=== PATIENT | female | born 1980 | race Caucasian/White ===

== ENCOUNTER 2017-06-24 02:10 | Emergency (ER) | payer MEDICARE, OTHER, SELFPAY ==
[2017-06-24 02:11] VITALS: BP 152/99; PULSE 120; RESP 24; TEMP 36.9; O2SAT 90; BMI 47.2
--- NOTE | 2017-06-24 02:24 | HMH.EDGENADL ---
ED Disposition Clinical Impression: Right humeral fracture Qualifiers: Encounter type: initial encounter Humerus Location: distal Fracture type: closed Fracture morphology: unspecified fracture morphology Qualified Code(s): S42.401A - Unspecified fracture of lower end of right humerus, initial encounter for closed fracture Disposition: Home, Self-Care Condition on Discharge: Good Additional Instructions: Continue splint and sling until seen by Dr. Ballard. Additional instructions for FRACTURED (BROKEN) BONE: See Dr. Ballard as soon as possible for further evaluation. Call Monday to schedule appointment to be seen this week. Treat your splint like you would a cast: Do not get it wet (cover with a plastic bag while bathing or showering). If the splint feels too tight, you may loosen the roseanna wrap covering it, but do not remove the splint. You may ice the fracture by applying an ice pack over the top of the splint, without removing the splint. Return to an emergency department immediately if you have uncontrollable pain, loss of feeling or inability to move your injured extremity. Additional instructions for CONTROLLED SUBSTANCES: You have been prescribed a medication that is a controlled substance. Controlled substances include pain medications known as opiates and sedative nerve medications known as benzodiazepines. Some common opiates include: Codeine (such as Tylenol #3) Hydrocodone (Vicodin, Lortab, Lorcet, Achille) Oxycodone (Percocet, Percodan, Oxycodone, Oxy IR) Some common benzodiazepines include: Diazepam (Valium) Lorazepam (Ativan) Alprazolam (Xanax) Clonazepam (Klonopin) Oxazepam (Serax) All of these controlled substances are highly addictive and frequently abused. Misuse can and frequently does lead to addiction as well as overdose and . Medication should be stored in a locked cabinet or other secure storage unit. Do not store the medication in a motor vehicle. Short term supplies, 3 days or less, are prescribed because of the highly addictive nature of the medication. Any of the controlled substance medication NOT taken should be disposed of properly and NOT SAVED. The recommended method of disposing of unused medications is: Place the medicines in a sealable plastic bag. If the medicine is a solid, crush it or add water to dissolve it. Add something undesirable (cat litter, coffee grounds, etc.) Dispose of sealed bag in household trash Do not flush or pour unused medicines down a sink or drain. Controlled substances should not be shared, given away or sold. Because of the addictive nature and frequent abuse, these medications are sometimes stolen. These medications should be kept in a safe place where they cannot be stolen. Do not keep them in your car or purse. Lost or stolen prescriptions for controlled substances WILL NOT BE REFILLED in this emergency department, regardless of whether a police report was filed. Prescriptions: Oxycodone HCl/Acetaminophen [Percocet 5/325mg tablet] 1 tab PO Q6HP PRN #20 tab PRN Reason: Moderate To Severe Pain Referrals: Donnie Espinosa MD [Primary Care Provider] - Yordan Ballard MD [Staff Physician] - 3 days - Critical Care Critical Care Time: No Attestation: On , the high probability of a clinically significant, sudden or life threatening deterioration of the following system(s) required my full and direct attention, intervention and personal management. The time I documented below is in addition to time spent performing reported procedures but includes the following listed in this critical care notation. Medical Decision Making Vital Signs: 06/24/17 02:11 Temperature 98.4 F Temperature Source Oral Pulse Rate [Right Brachial] 120 H Respiratory Rate 24 Blood Pressure [Right Arm] 152/99 Blood Pressure Mean [Right Arm] 116 Blood Pressure Source [Right Arm] Automatic Cuff Blood Pressure Position [Right Arm] Supine 02 Sat by Pulse Oximetr
--- NOTE | 2017-06-24 02:30 | XR_ITS ---
XR humerus RT Ordering Physician: Joey Stokes MD Patient Age: 36 years: Female HISTORY: ITS.REASON: painf pain . Numbness to the hand. Denies trauma TECHNIQUE: 2 views right humerus radiograph COMPARISON :None FINDINGS Spiral fracture distal right humerus shaft with up to 7 mm distraction along the fracture line and prominent angulation up to ~30 angulation on One of the rotated AP views.. [place] of fracture directed laterally. The proximal humeral shaft is intact. The views of the shoulder included on this study unremarkable. IMPRESSION: Spiral fracture distal humerus. Mild to moderate distraction and angulation at fracture
--- NOTE | 2017-06-24 02:39 | PC.NURSE ---
TO RADIOLOGY PER W/C.
--- NOTE | 2017-06-24 03:36 | PC.NURSE ---
[facility] CALLED FOR TRANSPORT
[2017-06-24 03:38] VITALS: BP 143/92; PULSE 98; RESP 20; O2SAT 97
== END 2017-06-24 03:44 | disposition home or self-care (01) ==
PROVIDERS: Emergency Provider Emergency Medicine; Family Provider Emergency Medicine; PCP Emergency Medicine
DX: S42.401A Unspecified fracture of lower end of right humerus, initial encounter for closed fracture (principal); W01.0XXA Fall on same level from slipping, tripping and stumbling without subsequent striking against object, initial encounter; Y92.129 Unspecified place in nursing home as the place of occurrence of the external cause
CPT/HCPCS: 29105; 73060; 99282

== ENCOUNTER → 2017-07-06 08:51 | Outpatient (CLI) | payer MEDICARE, OTHER, SELFPAY ==
--- NOTE | 2017-07-06 08:55 | XR_ITS ---
XR shoulder RT min 2V HISTORY: Follow-up fracture ITS.REASON: right humerus fracture. ORDERING PHYSICIAN: Leon West MD PATIENT AGE: 36 years COMPARISON: None FINDINGS: No fracture or dislocation. No lytic or blastic change. There is normal mineralization. The joint spaces are well-preserved. No significant degenerative/arthritic changes. No erosive changes evident. There is some sclerosis of the right second rib anteriorly and pleural thickening in the right upper lobe laterally and suspected old right rib fractures of the right second and third rib. IMPRESSION: Negative right shoulder. Old right-sided rib fractures with pleural thickening
--- NOTE | 2017-07-06 09:44 | XR_ITS ---
XR humerus RT CLINICAL INDICATION: Follow-up fracture ITS.REASON: right humerus fracture ORDERING PHYSICIAN: Leon West MD PATIENT AGE: 36 years COMPARISON: 06/24/2017 FINDINGS: Displaced oblique fracture of the distal shaft of the humerus is once again noted. The distal fracture fragment is displaced laterally x 2 cm with mild distraction of the fracture fragments. The lateral displacement has increased compared to the previous exam. There is mild medial angulation of the distal fracture fragment. No callus formation. IMPRESSION: Oblique displaced fracture of the distal humerus. Slightly greater displacement compared to the previous exam
== END ==
PROVIDERS: PCP Emergency Medicine; Visit Provider Orthopaedic Surgery
DX: S42.301A Unspecified fracture of shaft of humerus, right arm, initial encounter for closed fracture (principal)
CPT/HCPCS: 73030; 73060

== ENCOUNTER → 2017-07-12 14:54 | Outpatient (CLI) | payer MEDICARE, OTHER, SELFPAY ==
--- NOTE | 2017-07-12 14:59 | XR_ITS ---
XR humerus RT CLINICAL INDICATION: Follow-up fracture ITS.REASON: RT humerus fracture ORDERING PHYSICIAN: Leon West MD PATIENT AGE: 36 years COMPARISON: 07 06 17 FINDINGS: Displaced distal humeral fracture is once again noted. The fracture is oblique in orientation. There is 2.5 cm lateral displacement of the distal fracture fragment with some distraction at 0 present bony apposition. Mild anterior angulation of the distal fracture fragment also noted. No callus formation or bony bridging. IMPRESSION: Distracted displaced distal humeral fracture as described above. Overall not significantly changed
== END ==
PROVIDERS: PCP Emergency Medicine; Visit Provider Orthopaedic Surgery
DX: S42.301A Unspecified fracture of shaft of humerus, right arm, initial encounter for closed fracture (principal)
CPT/HCPCS: 73060

== ENCOUNTER → 2017-07-19 12:25 | Outpatient (CLI) | payer MEDICARE, OTHER, SELFPAY ==
--- NOTE | 2017-07-19 12:29 | XR_ITS ---
XR humerus RT CLINICAL INDICATION: Follow-up fracture ITS.REASON: humerus fracture ORDERING PHYSICIAN: Leon West MD PATIENT AGE: 36 years COMPARISON: FINDINGS: Displaced and distracted fracture once again noted involving the humerus. The lateral displacement of the distal fracture fragment has somewhat improved measuring 15 mm previously measuring 25 mm. Distraction also appear somewhat improved. There is increased density about fracture site with callus formation. IMPRESSION: Healing displaced distal humeral fracture as described above
== END ==
PROVIDERS: PCP Emergency Medicine; Visit Provider Orthopaedic Surgery
DX: S42.301A Unspecified fracture of shaft of humerus, right arm, initial encounter for closed fracture (principal)
CPT/HCPCS: 73060

== ENCOUNTER → 2017-08-10 09:11 | Outpatient (CLI) | payer MEDICARE, OTHER, SELFPAY ==
--- NOTE | 2017-08-10 09:15 | XR_ITS ---
XR humerus RT CLINICAL INDICATION: Follow-up fracture ITS.REASON: removal of cast then follow up xray RT humerus fx. ORDERING PHYSICIAN: Leon West MD PATIENT AGE: 36 years COMPARISON: 07/19/2017 FINDINGS: Displaced distal humeral fracture is once again noted. There is 12 mm lateral and 7 mm dorsal displacement of the distal fracture fragment. Abundant callus formation is noted. There is minimal medial angulation of the distal fracture fragment. IMPRESSION: Healing displaced distal right humeral fracture as described above
== END ==
PROVIDERS: PCP Emergency Medicine; Visit Provider Orthopaedic Surgery
DX: S42.301A Unspecified fracture of shaft of humerus, right arm, initial encounter for closed fracture (principal)
CPT/HCPCS: 73060

== ENCOUNTER → 2017-09-21 09:22 | Outpatient (CLI) | payer MEDICARE, OTHER, SELFPAY ==
--- NOTE | 2017-09-21 09:27 | XR_ITS ---
XR humerus RT CLINICAL INDICATION: ITS.REASON: f/u right humerus fx ORDERING PHYSICIAN: Leon West MD PATIENT AGE: 36 years COMPARISON: 08/10/2017 FINDINGS: There is a healing fracture of the distal shaft of the humerus with abundant callus formation which is increased compared to the previous exam. The fractures bilaterally displaced laterally x 15 mm and posteriorly x 12 mm. The posterior displacement appears somewhat worse but could be related to the projection. IMPRESSION: Healing displaced distal humerus fracture
== END ==
PROVIDERS: PCP Emergency Medicine; Visit Provider Orthopaedic Surgery
DX: S42.301A Unspecified fracture of shaft of humerus, right arm, initial encounter for closed fracture (principal)
CPT/HCPCS: 73060

== ENCOUNTER → 2017-12-21 09:24 | Outpatient (CLI) | payer MEDICARE, OTHER, SELFPAY ==
--- NOTE | 2017-12-21 09:32 | XR_ITS ---
XR humerus RT Ordering Physician: Leon West MD Patient Age: 37 years: Female HISTORY: ITS.REASON: rt humerus fx TECHNIQUE: AP lateral view right humerus. COMPARISON :09/11/2017. FINDINGS . The healing spiral fracture of the distal humerus is again identified. Abundant callus formation and bone healing now evident. The distal fracture fragment and stable position again noted to be displaced laterally and posteriorly. Good healing to this area and likely early remodeling beginning. I see no new findings. The proximal humerus intact. What is seen at the elbow are stable. IMPRESSION. Prominent Healing evident at the moderate displaced fracture distal humerus
== END ==
PROVIDERS: PCP Emergency Medicine; Visit Provider Orthopaedic Surgery
DX: S42.301A Unspecified fracture of shaft of humerus, right arm, initial encounter for closed fracture (principal)
CPT/HCPCS: 73060

== ENCOUNTER → 2018-11-07 20:38 | Outpatient (CLI) | payer MEDICARE, OTHER, SELFPAY | PROVIDERS: PCP Emergency Medicine; Visit Provider Emergency Medicine | DX: G47.33 Obstructive sleep apnea (adult) (pediatric) (principal); G47.36 Sleep related hypoventilation in conditions classified elsewhere | CPT/HCPCS: 95811 ==

== ENCOUNTER → 2019-04-18 20:05 | Outpatient (CLI) | payer MEDICARE, OTHER, SELFPAY | PROVIDERS: PCP Emergency Medicine; Visit Provider Specialist | DX: G47.33 Obstructive sleep apnea (adult) (pediatric) (principal); G47.10 Hypersomnia, unspecified; E66.01 Morbid (severe) obesity due to excess calories; R03.0 Elevated blood-pressure reading, without diagnosis of hypertension | CPT/HCPCS: 95811 ==

== ENCOUNTER → 2019-07-01 15:13 | Outpatient (CLI) | payer MEDICARE, OTHER, SELFPAY ==
[2019-07-04 10:28] LABS: ABG PH 7.36 mmol/L (7.35-7.45)
[2019-07-04 10:29] LABS: ABG Base Excess 6.9 mmol/L (-2.4-2.3); ABG HCO3 32.3 mmhg (22.0-26.0); ABG Oxygen Saturation 85 % (90-100); ABG PO2 50.3 mmhg (80-100); Allen's Test Acceptable; Oxygen room air %
[2019-07-04 10:30] LABS: Source Right Radial
== END ==
PROVIDERS: Visit Provider Specialist
DX: G47.33 Obstructive sleep apnea (adult) (pediatric) (principal); J96.12 Chronic respiratory failure with hypercapnia
CPT/HCPCS: 82803

== ENCOUNTER → 2019-07-30 06:50 | Outpatient (CLI) | payer MEDICARE, OTHER, SELFPAY ==
--- NOTE | 2019-07-30 | CA_ITS ---
APPROVED REPORT Exam: Pharmacologic Technologist: Claire Bah Ht: 5 ft 4 in Wt: 300 lbs BSA: 2.32 m2 HR: 78 bpm BP: 120/54 mmHg Indications: Tachycardia, Chest pain Medical History Medications: Omeprazole,,,,, Ferrous sulfate,,,,, FOLIC ACID,,,,, Olanzapine,,,,, BisOPROLOL,,,,, Fluoxetine,,,,, Lactulose,,,,, HALoperidol,,,,, Loperamide,,,,, Divaproex,,,,, MeDroxyprogesterone,,,,, Stress Test Details Test: LEXISCAN HR Resting HR: 78 bpm Max Heart Rate (APMHR): 184 bpm Max HR Achieved: 112 bpm Target HR (85% APMHR): 156 bpm % of APMHR: 60 Recovery HR: 87 bpm BP Resting BP: 120.0/54.0 mmHg Max BP: 137.0/71.0 mmHg Recovery BP: 137.0/71.0 mmHg ECG Clinical Exercise duration: 04:00 min Highest Stage Achieved: Exercise capacity: 1.0 METs Stress ECG Conclusion Resting ECG: Normal sinus rhythm, rightward axis Symptoms: Shortness of air, mild stomach discomfort, mild chest discomfort. Arrhythmias/Ectopy: None ST-T Changes: No significant changes Conclusion: Unremarkable Lexiscan stress. Myoview images reported separately. Electronically signed by : Rajesh Shelton, 07/30/2019 19:55:45
--- NOTE | 2019-07-30 06:50 | CA_ITS ---
APPROVED REPORT EXAM: Comprehensive 2D, Doppler, and color-flow Echocardiogram Armoured Car Escort: Elayne Quintana RDCS Ht: 5 ft 6 in Wt: 312lbs BSA: 2.42 BP: 140/93 mmHg Indications: Chest Pain, COPD, Shortness of Breath, Obesity, Hyperlipidemia M-Mode Dimensions RVDd 2.74 cm (0.9-2.6) LVDd 5.03 cm (3.5-5.7) LVDs 3.81 cm (3.5-5.7) IVSd 0.99 cm (0.6-1.1) PWd 0.91 cm (0.6-1.1) EF (Teich) 48.00% FS 24.30% EDV (Teich) 119.90 mL ESV (Teich) 62.30 mL LV Diastology E/A Ratio 1.28 Mitral Valve MV A Velocity 46.00 (40-130 cm/s) Left Ventricle Left atrium is mildly enlarged, left ventricle is normal size, mild concentric left ventricular hypertrophy, visually estimated ejection fraction 55% with no regional wall motion abnormality, diastolic parameters are inconclusive. Right Ventricle Right atrium and right ventricle are mildly enlarged with normal contractility. Aortic Valve Aortic valve is grossly normal, there is no aortic stenosis or aortic insufficiency. Mitral Valve Mitral valve is grossly normal, there is mild mitral regurgitation. Tricuspid Valve Tricuspid valve is grossly normal, there is mild tricuspid regurgitation. Pulmonic Valve Pulmonic valve is poorly visualized. Great Vessels Aortic root is normal size. Pericardium No significant pericardial effusion noted. Conclusion 1. Mild mitral enlargement, normal left ventricular size, mild concentric left ventricular hypertrophy, visually estimated ejection fraction 55% with no regional wall motion abnormality, diastolic parameters are inconclusive. 2. Mildly enlarged right ventricle with normal contractility. 3. Mild mitral and tricuspid regurgitation. 4. No significant pericardial effusion noted. Electronically signed by : Rajesh Shelton, 07/30/2019 20:01:10
--- NOTE | 2019-07-30 06:57 | NM_ITS ---
APPROVED REPORT Exam: Nuclear Stress Test Indication: Chest pain, SOB, Fatigue, HTN Patient Location: Outpatient Stress Tech: Claire Bah NM Tech:Dona Andrew, ARRT, RT (R)(N) Ht: 5 ft 4 in Wt: 300 lbs Bra Size: 36D HR: 78 bpm BP: 120/54 mmHg BSA: 2.32 m2 BMI: 51.4 History: Chest pain, SOB, Fatigue, HTN Procedure: Patient received a 0.4 mg of intravenous Lexiscan, resting heart rate 78 bpm, resting blood pressure 120/54 mmHg, with Lexiscan maximum heart rate achived was 109 bpm which is Less than 85 % of the maximum predicted heart rate and blood pressure was 123/75 mmHg. Electrocardiogram Resting electrocardiogram showed sinus rhythm, with Lexiscan there is less than 1.[address] segment depression noted from the baseline EKG. The EKG portion of the Lexiscan is nondiagnostic. Cardiac Stress and Resting SPECT Images: Cardiac Stress and Resting SPECT images were obtained using technetium 99m Myoview 32.5 mCi stress and 10.42 mCi at rest. Gated SPECT with analysis of segmental wall motion and calculation of the ejection fraction also done. Cardiac stress and resting SPECT images show uniform myocardial activity without segmental perfusion abnormality, computer derived ejection fraction is 63% with no regional wall motion abnormality, right ventricle is normal size and contractility. Conclusion: 1. The EKG portion of the Lexiscan Myoview is nondiagnostic. 2. No scintigraphic evidence of reversible ischemia seen, computer derived ejection fraction is 63% with no regional wall motion abnormality, right ventricle is normal size and contractility. 3. Normal Lexiscan Myoview study. Electronically signed by : Rajesh Shelton, 07/30/2019 19:58:02
--- NOTE | 2019-07-30 08:17 | HMH.ITSHM ---
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 []LOPERAMIDE ROBAFEN BENZTROPINE DIVALPROEX FERROUS SULFATE FLUOXETINE BISOPROLOL FOLIC ACID HALOPERIDOL LACTULOSE MEDROXYPROGESTERONE OLANZAPINE OMEPRAZOLE
== END ==
PROVIDERS: PCP Emergency Medicine; Visit Provider Physician Assistant
DX: G47.33 Obstructive sleep apnea (adult) (pediatric) (principal); R06.02 Shortness of breath; R07.9 Chest pain, unspecified; R00.0 Tachycardia, unspecified; Z01.810 Encounter for preprocedural cardiovascular examination
CPT/HCPCS: 78452; 93017; 93306; A9502; J2785

== ENCOUNTER 2020-12-21 15:50 | Emergency (ER) | payer MEDICARE, OTHER, SELFPAY ==
[2020-12-21 15:50] VITALS: BP 138/72; PULSE 104; RESP 18; TEMP 36.7; O2SAT 94; BMI 47.1
--- NOTE | 2020-12-21 16:09 | HMH.EDGENADL ---
ED Disposition Clinical Impression: Vaginal foreign body Qualifiers: Encounter type: initial encounter Qualified Code(s): T19.2XXA - Foreign body in vulva and vagina, initial encounter Disposition: Home, Self-Care Condition on Discharge: Fair Instructions: DI for Skin Abscess - Critical Care Critical Care Time: No Attestation: On , the high probability of a clinically significant, sudden or life threatening deterioration of the following system(s) required my full and direct attention, intervention and personal management. The time I documented below is in addition to time spent performing reported procedures but includes the following listed in this critical care notation. Medical Decision Making - [place] Inquiry Pt receiving controlled substance: No Vital Signs: 12/21/20 15:50 12/21/20 16:29 Temperature 98.0 F Temperature Source Oral Pulse Rate [Left Radial] 104 H Respiratory Rate 18 Blood Pressure 135/72 Blood Pressure [Right Arm] 138/72 Blood Pressure Mean [Right Arm] 94 Blood Pressure Source Automatic Cuff Blood Pressure Source [Right Arm] Automatic Cuff Blood Pressure Position Sitting Blood Pressure Position [Right Arm] Sitting 02 Sat by Pulse Oximetry 94 L Oxygen Delivery Method Room Air Medical Decision Narrative: To the ED today for further evaluation of a vaginal foreign body, patient is well-appearing on examination in no acute distress with stable vital signs, differential diagnosis includes foreign body of the vagina, anal foreign body, laceration of the perineum. Exam performed with speculum, patient has a eraser found at the introitus of the vagina, was removed with forceps, no bleeding, no laceration visualized, patient reports symptomatic improvement afterward, given return precautions return to ED with any new or worsening symptoms, verbalized understanding with this plan, does not require follow-up, imaging or laboratory work-up at this time. General Adult HPI - General Chief complaint: Skin/Abscess/Foreign Body Stated complaint: foreign object Time Seen by Provider: 12/21/20 16:09 Mode of Arrival: EMS Limitations: No Limitations Description of Symptoms (Recalled from ER Triage Doc. by RN): pt states that she was scratching her vagina after trying to itch her butt and the eraser came off the tip of the pencil while scratching her vagina. - History of Present Illness HPI narrative: Further evaluation of a vaginal foreign body. Patient states that she was scratching her perineal area with the end of a pencil, such as he felt the cap of the eraser fall off, and states that she feels the sensation of this near the entrance of her vagina, states that this happened her approximately 1 hour prior to arrival, has been otherwise well, no other complaints at this time. - Related Data Home Medications Medication Instructions Recorded Confirmed benztropine 0.5 mg tablet 0.5 mg PO BID 06/28/17 10/21/20 dextromethorphan-guaifenesin 10 10 ml PO Q4-6H PRN 06/28/17 10/21/20 mg-100 mg/5 mL oral syrup divalproex 500 mg tablet,delayed 500 mg PO DAILY 06/28/17 10/21/20 release ferrous sulfate 325 mg (65 mg 325 mg PO DAILY tab 06/28/17 10/21/20 iron) tablet fluoxetine 40 mg capsule 40 mg PO DAILY 06/28/17 10/21/20 folic acid 1 mg tablet 1 mg PO DAILY 06/28/17 10/21/20 lactulose 10 gram/15 mL oral 10 g PO ONCE 06/28/17 10/21/20 solution loperamide 2 mg capsule 2 mg PO Q3HP PRN 06/28/17 10/21/20 medroxyprogesterone 150 mg/mL 150 mg IM [id number] 06/28/17 10/21/20 intramuscular suspension olanzapine 20 mg tablet 20 mg PO DAILY 06/28/17 10/21/20 Divalproex Sodium [Depakote] 1,500 mg PO HS 07/28/18 10/21/20 haloperidol 5 mg tablet 5 mg PO TID tab 07/22/19 10/21/20 omeprazole magnesium 20 mg 20 mg PO DAILY tab 07/22/19 10/21/20 tablet,delayed release Previous Rx's Medication Instructions Recorded bisoprolol fumarate 5 mg tablet 5 mg PO DAILY #30 tab 07/22/19 phenterm
[2020-12-21 16:29] VITALS: BP 135/72
[2020-12-21 18:24] VITALS: BP 104/76; PULSE 100; RESP 22; TEMP 36.7; O2SAT 94
== END 2020-12-21 18:30 | disposition home or self-care (01) ==
PROVIDERS: Emergency Provider Student in an Organized Health Care Education/Training Program; PCP Emergency Medicine
DX: T19.2XXA Foreign body in vulva and vagina, initial encounter (principal); K21.9 Gastro-esophageal reflux disease without esophagitis; F41.8 Other specified anxiety disorders; G43.709 Chronic migraine without aura, not intractable, without status migrainosus; G40.909 Epilepsy, unspecified, not intractable, without status epilepticus
CPT/HCPCS: 99282

== ENCOUNTER 2021-02-07 23:54 | Inpatient (IN) | payer MEDICARE, OTHER, MEDICAID, SELFPAY ==
[2021-02-07 23:52] VITALS: BP 133/56; PULSE 107; RESP 30; TEMP 38.8; O2SAT 89; BMI 51.5
--- NOTE | 2021-02-07 23:54 | XR_ITS ---
PROCEDURE INFORMATION: Exam: XR Chest Exam date and time: 02/07/2021 11:54 PM Age: 40 years old Clinical indication: Shortness of breath; Additional info: SOA TECHNIQUE: Imaging protocol: XR of the chest. Views: 1 view. COMPARISON: CR CXR CHEST(2 VIEWS-NOT PORTABLE) 06/14/2016 2:29 PM FINDINGS: Lungs: Extensive bilateral airspace disease/pneumonia. Low lung volumes. Pleural spaces: Unremarkable. No pleural effusion. No pneumothorax. Heart/Mediastinum: Cardiomegaly. Bones/joints: Unremarkable. IMPRESSION: Extensive bilateral airspace disease concerning for pneumonia.
[2021-02-07 23:55] LABS: ABG Base Excess 7.9 mmol/L (-2.4-2.3); ABG HCO3 32.3 mmhg (22.0-26.0); ABG Oxygen Saturation 81 % (90-100); ABG PH 7.43 mmol/L (7.35-7.45); ABG TCO2 33.9 mmhg (23-27)
[2021-02-07 23:56] LABS: ABG PCO2 50.4 mmhg (35.0-45.0); ABG PO2 45.6 mmhg (80-100); Allen's Test Y; Oxygen 100 %; Source R/R
[2021-02-08] VITALS (16 sets, daily range): BP systolic 137–163; BP diastolic 51–90; PULSE 92–106; RESP 18–32; TEMP 36.3–37.2; O2SAT 89–100; BMI 49.0; BMI 49.1
[2021-02-08 00:13] LABS: Microscopic, Urine URINE MICROSCOPIC (MICROSCOPIC)
[2021-02-08 00:17] LABS: Influenza A, PCR Not Detected (NotDetected); Influenza B, PCR Not Detected (NotDetected)
--- NOTE | 2021-02-08 00:17 | ECG_ITS ---
APPROVED REPORT Exam: Resting ECG HR:110 bpm ECG Measurements Heart Rate 110 AXES NC 144 P 50 QRSd 84 QRS -8 QT 348 T 29 QTc 470 Conclusion Sinus tachycardia with premature atrial complexes Otherwise normal ECG Electronically signed by : Jason Saldaña MD 02/08/2021 20:38:03
--- NOTE | 2021-02-08 00:18 | HMH.EDSOB ---
ED Disposition Clinical Impression: COVID-19 with pulmonary comorbidity, Obstructive Sleep Apnea-Hypopnea Syndrome, Pickwickian syndrome HTN (hypertension) Qualifiers: Hypertension type: primary hypertension Qualified Code(s): I10 - Essential (primary) hypertension Obesity Qualifiers: Obesity type: due to excess calories Obesity classification: adult class 3 (BMI >= 40) Serious obesity comorbidity presence: with serious comorbidity Body mass index: BMI 50.0-59.9 Qualified Code(s): E66.01 - Morbid (severe) obesity due to excess calories; Z68.43 - Body mass index [BMI] 50.0-59.9, adult Schizophrenia Qualifiers: Schizophrenia type: unspecified Qualified Code(s): F20.9 - Schizophrenia, unspecified Respiratory failure with hypoxia and hypercapnia Qualifiers: Chronicity: acute on chronic Qualified Code(s): J96.21 - Acute and chronic respiratory failure with hypoxia; J96.22 - Acute and chronic respiratory failure with hypercapnia Disposition: Admitted As Inpatient Condition on Discharge: Serious - Critical Care Critical Care Time: No Attestation: On 02/07/21, the high probability of a clinically significant, sudden or life threatening deterioration of the following system(s) required my full and direct attention, intervention and personal management. The time I documented below is in addition to time spent performing reported procedures but includes the following listed in this critical care notation. Medical Decision Making - Medical Records Medical records reviewed: Yes: I reviewed the patient's medical records. - [place] Inquiry Pt receiving controlled substance: No Vital Signs: 02/07/21 23:52 02/08/21 00:31 02/08/21 01:01 Temperature 101.9 F H Temperature Source Rectal Pulse Rate 106 H 103 H Pulse Rate [Right] 107 H Respiratory Rate 30 H 32 H 30 H Blood Pressure 145/73 H 155/75 H Blood Pressure [Right Arm] 133/56 L Blood Pressure Mean 93 98 Blood Pressure Mean [Right Arm] 81 02 Sat by Pulse Oximetry 89 L 99 98 Oxygen Delivery Method Non-Rebreather Vapotherm Oxygen Flow Rate (LPM) 02/08/21 01:30 02/08/21 02:22 02/08/21 02:31 Temperature 98.1 F Temperature Source Pulse Rate 99 H 99 H Pulse Rate [Right] Respiratory Rate 26 H 28 H Blood Pressure 163/59 H 140/51 L Blood Pressure [Right Arm] Blood Pressure Mean Blood Pressure Mean [Right Arm] 02 Sat by Pulse Oximetry 98 95 Oxygen Delivery Method Vapotherm Oxygen Flow Rate (LPM) 25 - Lab Data Lab results reviewed: Yes: I reviewed the patient's lab results. Lab Results 02/07/21 00:00: Urine Color Dk yellow, Urine Appearance Sl cloudy, Urine pH 6.0, Ur Specific [place] >= 1.030, Urine Protein 1+, Urine Glucose (UA) Negative, Urine Ketones 1+, Urine Blood Negative, Urine Nitrate Negative, Urine Bilirubin 1+ A, Urine Urobilinogen 2.0, Ur Leukocyte Esterase Negative, Urine WBC 3-5, Ur Squamous Epith Cells Occasional, Urine Bacteria Trace, Urine Mucus 2+ 02/07/21 23:54: Specimen Source R/r, O2 % 100, ABG pH 7.43, ABG pCO2 50.4 H, ABG pO2 45.6 L, ABG HCO3 32.3 H, ABG Total CO2 33.9 H, ABG O2 Saturation 81 L*, ABG Base Excess 7.9 H, Varun Test Y 02/07/21 23:55: WBC 8.9, RBC 4.50, Hgb 13.5, Hct 41.9, MCV 93.2, MCH 30.0, MCHC 32.2, RDW 13.4, Plt Count 269, MPV 8.5, Neut % (Auto) 71.8, Lymph % (Auto) 20.6, [place] % (Auto) 6.8, Eos % (Auto) 0.1, Baso % (Auto) 0.7, Neut # (Auto) 6.4, Lymph # (Auto) 1.8, [place] # (Auto) 0.6, Eos # (Auto) 0.0, Baso # (Auto) 0.1, ESR 41 H 02/07/21 23:55: Sodium 135 L, Potassium 4.4, Chloride 91 L, Carbon Dioxide 35 H, Anion Gap 13.4, BUN 9, Creatinine 0.60, Estimated Creat Clear 110, Estimated GFR 112, Est GFR ( Amer) 135, Glucose 129 H, Calcium 8.1 L, Total Bilirubin 0.1 L, AST 38 H, ALT 35, Alkaline Phosphatase 48, C-Reactive Protein 87.4 H, Total Protein 7.0, Albumin 3.6, Globulin 3.4 H, Albumin/Globulin Ratio 1.1, Procalcitonin 0.075 02/07/21 23:55: Lactate 1.0 02/07/21 23:55: Troponin I < 0.01
[2021-02-08 00:19] LABS: Basophils # 0.1 K/mm3 (0-0.2); Basophils % 0.7 % (0.1-2.0); Eosinophils % 0.1 % (0.1-12.0); Hematocrit 41.9 % (37.0-47.0); Hemoglobin 13.5 g/dL (12.2-16.2); Lymphocytes # 1.8 K/mm3 (0.7-4.5); Lymphocytes % 20.6 % (10-50); Mean Corpuscular HGB Conc 32.2 g/dL (31.8-35.4); Mean Corpuscular Volume 93.2 fl (81-99); Mean Platelet Volume 8.5 fl (7.4-10.4); Monocytes # 0.6 K/mm3 (0.1-1.0); Monocytes % 6.8 % (1.7-9.3); Neutrophils # 6.4 K/mm3 (1.8-7.8); Neutrophils % 71.8 % (37.0-80.0); Platelet Count 269 K/mm3 (142-424); Red Cell Distribution Width 13.4 % (11.5-17.5); White Blood Count 8.9 K/mm3 (4.8-10.8)
[2021-02-08 00:25] LABS: Appearance,Urine SL CLOUDY (Clear); Blood, Urine Negative (Negative); Color,Urine DK YELLOW (Yellow); Glucose,Urine (UA) Negative (Negative); Ketones,Urine 1+ (Negative); Leukocyte Esterase,Urine Negative (Negative); Nitrate,Urine Negative (Negative); Protein,Urine 1+ (Negative); Specific Gravity, Urine >= 1.030 (1.005-1.030)
[2021-02-08 00:28] LABS: Bilirubin,Urine 1+ (Negative)
[2021-02-08 00:30] LABS: Alanine Aminotransferase 35 U/L (12-78); Albumin Level 3.6 g/dl (3.5-5.0); Albumin/Globulin Ratio 1.1 (1.1-1.8); Alkaline Phosphatase 48 U/L (38-126); Anion Gap 13.4 mEq/L (5-15); Aspartate Amino Transferase 38 U/L (14-36); Bilirubin,Total 0.1 mg/dl (0.2-1.3); Blood Urea Nitrogen 9 mg/dl (7-17); Calcium 8.1 mg/dl (8.4-10.2); Carbon Dioxide 35 mmol/L (22.0-30.0); Chloride 91 mmol/L (98-107); Creatinine Clearance Estimated 110 mL/min (50-200); Estimated Glomerular Filt Rate 112 ml/min (>60); GFR (African American) 135 ML/MIN (>60); Globulin 3.4 g/dL (1.3-3.2); Glucose 129 mg/dl (74-100); Potassium 4.4 mmoL/L (3.5-5.1); Sodium 135 mmol/L (136-145)
[2021-02-08 00:31] LABS: Bacteria,Urine Trace /lpf; Mucus,Urine 2+ /lpf; Squamous Epithelial Cell,Urine Occasional #/hpf (0-5)
[2021-02-08 00:35] LABS: C-Reactive Protein 87.4 mg/L (0-4)
[2021-02-08 00:39] LABS: Coronavirus 19, PCR Detected (NotDetected)
[2021-02-08 00:44] LABS: Troponin I < 0.01 ng/ml (0.00-0.034)
[2021-02-08 00:46] LABS: Erythrocyte Sedimentation Rate 41 mm/hr (0-20)
[2021-02-08 00:49] LABS: Procalcitonin 0.075 ng/mL (0.0-2.0)
[2021-02-08 01:04] LABS: Valproic Acid, (Depakene) 92.8 ug/ml (50-100)
--- NOTE | 2021-02-08 01:15 | CT_ITS ---
PROCEDURE INFORMATION: Exam: CTA Chest With Contrast Exam date and time: 02/08/2021 1:15 AM Age: 40 years old Clinical indication: Shortness of breath; Additional info: SOA, covid positive TECHNIQUE: Imaging protocol: Computed tomographic angiography of the chest with contrast. 3D rendering (Not supervised by radiologist): MIP and/or 3D reconstructed images were created by the technologist. Total images: 685 Radiation optimization: All CT scans at this facility use at least one of these dose optimization techniques: automated exposure control; mA and/or kV adjustment per patient size (includes targeted exams where dose is matched to clinical indication); or iterative reconstruction. Contrast material: ISOVUE; Contrast volume: 70 ml; Contrast route: INTRAVENOUS (IV); COMPARISON: CR XR CHEST PORTABLE 02/08/2021 12:01 AM FINDINGS: Pulmonary arteries: Pulmonary artery valuation limited in the lung bases from respiratory motion. Pulmonary artery evaluation of fair technical quality but no pulmonary artery embolism identified. Aorta: No thoracic aortic aneurysm, dissection or other acute thoracic aortic injury. Lungs: Patchy subpleural predominant ground-glass and linear pulmonary opacities are concerning for atypical infection, likely moderate changes of COVID-19. Low lung volumes. Pleural spaces: Unremarkable. No pneumothorax. No pleural effusion. Heart: Unremarkable. No cardiomegaly. No pericardial effusion. Lymph nodes: Unexpectedly prominent mediastinal and hilar adenopathy includes a 14 x 17 mm prevascular lymph node with lymphoid tissue encircling the bilateral lower lobe pulmonary arteries. This is more than is typically expected for viral pneumonia and is a potential marker of lymphoproliferative disorder or malignancy. Liver: Hepatic steatosis is evident. Bones/joints: Unremarkable. No acute fracture. Soft tissues: Unremarkable. IMPRESSION: 1. No thoracic aortic aneurysm, dissection or other acute thoracic aortic injury. 2. No segmental or larger pulmonary artery embolism identified. Mildly limited quality examination. 3. Patchy subpleural predominant ground-glass and linear pulmonary opacities are concerning for atypical infection, likely moderate changes of COVID-19. 4. Unexpectedly prominent mediastinal and hilar adenopathy includes a 14 x 17 mm prevascular lymph node with lymphoid tissue encircling the bilateral lower lobe pulmonary arteries. This is more than is typically expected for viral pneumonia and is a potential marker of lymphoproliferative disorder or malignancy. Consider followup three-month CT chest to further define.
[2021-02-08 03:59] LABS: Troponin I < 0.01 ng/ml (0.00-0.034)
--- NOTE | 2021-02-08 05:15 | HMH.HP ---
*Admission Date: 02/08/21 *Chief complaint: [id number] *History of present illness: this patient is from [facility]- pt with recent dx of covid-19 and was sent for eval of sob with dec o2 sat and dec mental status - pt was seen in the ed with abn abg and cxr with positive covid-19 despite being vaccinated - pt was admitted at this time on vapotherm [facility] History I have reviewed the patient's past medical history: Yes Medical History: Reports:: Anxiety, Cancer, Depression, Gastroesophageal Reflux Disease(GERD), Migraine, Seizures Denies:: Diabetes Mellitus Type 1, Diabetes Mellitus Type 2, MRSA *Have you ever received a pneumonia vaccine?: No *Have you received a flu vaccine this season?: No Other Medical History: Reports: Anemia, Other Other Surgeries: Yes: Cholecystectomy, Other Amputation: No Fractures: No - *Social History Smoking Status: Never smoker #Yrs smoked (if former smoker): 6 Alcohol Intake: never Alcohol Intake Frequency:: other Substance Use Type: denies use *Occupational Status:: disabled Housing: longterm Household Members: caregiver *Travel in the last 8 weeks: None - Psychiatric History Pschychiatric History:: Reports:: Anxiety, Depression Family Hx:: Unable to obtain Review of Systems - Review of Systems Review of systems:: pertinent systems reviewed and negative unless documented below - Constitutional Reports weakness, Denies fever(s) - Eyes Denies change in vision - ENT Denies dizziness, Denies sore throat - *Cardiovascular Reports shortness of breath, Denies chest pain - *Respiratory Reports cough, Reports shortness of breath, Denies coughing up blood - *Gastrointestinal Denies abdominal pain - *Genitourinary Denies blood in urine - *Musculoskeletal Denies joint pain - Integumentary/Breasts Denies rash - *Neurologic Reports confusion, Denies seizure-like activity - Psychiatric Reports confusion Meds Home Medications Medication Instructions Recorded Confirmed Type benztropine 0.5 mg tablet 0.5 mg PO BID 06/28/17 02/08/21 History dextromethorphan-guaifenesin 10 10 ml PO Q4-6H PRN 06/28/17 02/08/21 History mg-100 mg/5 mL oral syrup divalproex 500 mg tablet,delayed 1,500 mg PO DAILY 06/28/17 02/08/21 History release ferrous sulfate 325 mg (65 mg 325 mg PO DAILY tab 06/28/17 02/08/21 History iron) tablet fluoxetine 40 mg capsule 40 mg PO DAILY 06/28/17 02/08/21 History folic acid 1 mg tablet 1 mg PO DAILY 06/28/17 02/08/21 History loperamide 2 mg capsule 2 mg PO Q3HP PRN 06/28/17 02/08/21 History medroxyprogesterone 150 mg/mL 150 mg IM [id number] 06/28/17 02/08/21 History intramuscular suspension olanzapine 20 mg tablet 15 mg PO DAILY 06/28/17 02/08/21 History Divalproex Sodium [Depakote] 1,500 mg PO HS 07/28/18 02/08/21 History omeprazole magnesium 20 mg 20 mg PO DAILY tab 07/22/19 02/08/21 History tablet,delayed release haloperidol 10 mg tablet 10 mg PO DAILY tab 01/20/21 02/08/21 History metformin 500 mg tablet 500 mg PO BID tab 01/20/21 02/08/21 History Phentermine HCl 37.5 mg PO DAILY 02/08/21 02/08/21 History bisoproloL fumarate [Bisoprolol 5 mg PO DAILY 02/08/21 02/08/21 History Fumarate] Allergies Allergy/AdvReac Type Severity Reaction Status Date / Time No Known Allergies Allergy Verified 01/20/21 09:55 Exam Vital signs and Labs for Last 24 Hours: Temp Pulse Resp BP Pulse Ox 98.9 F 96 H 24 141/90 H 94 L 02/08/21 05:05 02/08/21 05:05 02/08/21 05:05 02/08/21 05:05 02/08/21 05:05 Laboratory Results - last 24 hr 02/07/21 00:00: Urine Color Dk yellow, Urine Appearance Sl cloudy, Urine pH 6.0, Ur Specific Gratis >= 1.030, Urine Protein 1+, Urine Glucose (UA) Negative, Urine Ketones 1+, Urine Blood Negative, Urine Nitrate Negative, Urine Bilirubin 1+ A, Urine Urobilinogen 2.0, Ur Leukocyte Esterase Negative, Urine WBC 3-5, Ur Squamous Epith Cells Occasional, Urine Bacteria Trace, Urine M
--- NOTE | 2021-02-08 06:51 | XR_ITS ---
PROCEDURE INFORMATION: Exam: XR Chest Exam date and time: 02/08/2021 6:51 AM Age: 40 years old Clinical indication: Shortness of breath; Patient HX: [id number] TECHNIQUE: Imaging protocol: XR of the chest. Views: 1 view. COMPARISON: CR XR CHEST PORTABLE 02/08/2021 12:01 AM FINDINGS: Lungs: Bilateral airspace disease, in the setting of reported COVID-19 pneumonitis. Subcentimeter nodules, suggesting chronic granulomatous disease. Pleural spaces: No pleural effusion. Heart/Mediastinum: Cardiac silhouette accentuated by hypoinflation and portable positioning. Diaphragm: Hypoinflation with asymmetric elevation of the right hemidiaphragm. Bones/joints: Mild degenerative change. IMPRESSION: Bilateral airspace disease, in the setting of reported COVID-19 pneumonitis.
[2021-02-08 07:25] LABS: Basophils % 0.4 % (0.1-2.0); Eosinophils % 0.1 % (0.1-12.0); Hematocrit 39.8 % (37.0-47.0); Hemoglobin 12.8 g/dL (12.2-16.2); Lymphocytes # 1.2 K/mm3 (0.7-4.5); Lymphocytes % 15.7 % (10-50); Mean Corpuscular HGB Conc 32.1 g/dL (31.8-35.4); Mean Corpuscular Hemoglobin 30.1 pg (27.0-31.2); Mean Corpuscular Volume 93.8 fl (81-99); Mean Platelet Volume 8.8 fl (7.4-10.4); Monocytes # 0.5 K/mm3 (0.1-1.0); Monocytes % 6.6 % (1.7-9.3); Neutrophils # 5.8 K/mm3 (1.8-7.8); Neutrophils % 77.3 % (37.0-80.0); Platelet Count 252 K/mm3 (142-424); Red Blood Count 4.25 M/mm3 (4.20-5.40); Red Cell Distribution Width 13.4 % (11.5-17.5); White Blood Count 7.5 K/mm3 (4.8-10.8)
[2021-02-08 07:33] LABS: Anion Gap 11.5 mEq/L (5-15); Blood Urea Nitrogen 12 mg/dl (7-17); Calcium 7.7 mg/dl (8.4-10.2); Carbon Dioxide 32 mmol/L (22.0-30.0); Chloride 95 mmol/L (98-107); Creatinine Clearance Estimated 106 mL/min (50-200); Estimated Glomerular Filt Rate 94 ml/min (>60); GFR (African American) 113 ML/MIN (>60); Glucose 144 mg/dl (74-100); Magnesium 1.7 mg/dl (1.6-2.3); Potassium 4.5 mmoL/L (3.5-5.1); Sodium 134 mmol/L (136-145)
[2021-02-08 07:58] LABS: Troponin I < 0.01 ng/ml (0.00-0.034)
--- NOTE | 2021-02-08 15:49 | PC.NURSE ---
Pt instructed on sputum production but unable to produce specimen. Sputum cup at bedside.
--- NOTE | 2021-02-08 17:15 | PC.NURSE ---
Pt is alert and oriented x4. Lungs are diminished throughout with faint crackles. She remains on 20L vapotherm, 65% fio2 with O2 sats in the mid 90's. Pt will remove vapotherm and O2 sats drop to the low 80's. She has been reminded multiple times to leave O2 on. She has ambulated to the bathroom with assist x1 on 6L NC and has tolerated well. Oxygen drops to mid 80's but recovers quickly when placed back on vapotherm. She has had 2 loose stools this shift. Some excoriation noted to abelardo area. She been NSR/ST on telemetry. Morris is to bedside draining dark colored urine. Appetite has been good. She has been pleasant and appropriate with staff.
--- NOTE | 2021-02-08 23:17 | PC.NURSE ---
Patient is alert & oriented times 4. Lung sounds diminished throughout, on 20L Vapotherm at 65%. Has indwelling catheter draining clear yellow urine. No apparent distress noted.
[2021-02-09] VITALS (9 sets, daily range): BP systolic 122–148; BP diastolic 77–88; PULSE 83–111; RESP 14–26; TEMP 36.7–36.9; O2SAT 90–96; BMI 49.1
[2021-02-09 07:36] LABS: Alanine Aminotransferase 29 U/L (12-78); Alkaline Phosphatase 40 U/L (38-126); Anion Gap 7.8 mEq/L (5-15); Aspartate Amino Transferase 35 U/L (14-36); Bilirubin,Direct 0.1 mg/dl (0.0-0.4); Blood Urea Nitrogen 13 mg/dl (7-17); Calcium 7.6 mg/dl (8.4-10.2); Carbon Dioxide 36 mmol/L (22.0-30.0); Chloride 98 mmol/L (98-107); Creatinine Clearance Estimated 143 mL/min (50-200); Estimated Glomerular Filt Rate 138 ml/min (>60); GFR (African American) 167 ML/MIN (>60); Glucose 127 mg/dl (74-100); Potassium 3.8 mmoL/L (3.5-5.1); Sodium 138 mmol/L (136-145)
[2021-02-09 07:38] LABS: Bilirubin,Total 0.1 mg/dl (0.2-1.3)
--- NOTE | 2021-02-09 07:55 | HMH.PHAVTE ---
[facility] Pharmacy VTE Monitoring - Patient Demographics Admission date: 02/08/21 Report Date: 02/09/21 Time: 07:55 Allergies/Adverse Reactions: Patient Allergies No Known Allergies Allergy (Verified 01/20/21 09:55) Height: 1.7 m Weight: 142.102 kg Patient Problems: Current Active Problems COVID-19 with pulmonary comorbidity (Acute) Obesity (Acute) Schizophrenia (Acute) Pickwickian syndrome (Acute) Respiratory failure with hypoxia and hypercapnia (Acute) HTN (hypertension) (Chronic) Obstructive Sleep Apnea-Hypopnea Syndrome (Chronic) - VTE Risk Labs: VTE Related Lab Results Hgb 12.8 g/dL (12.2-16.2) 02/08/21 06:30 Hct 39.8 % (37.0-47.0) 02/08/21 06:30 Plt Count 252 K/mm3 (142-424) 02/08/21 06:30 BUN 13 mg/dl (7-17) 02/09/21 05:20 Creatinine 0.50 mg/dl (0.52-1.04) L D 02/09/21 05:20 Estimated Creat Clear 143 mL/min (50-200) 02/09/21 05:20 VTE Score: 4 VTE Risk Level: Low Risk - Prophylaxis VTE Prophylaxis Ordered?: Yes Types of VTE Prophylaxis: TEDS Knee High, Pharmacological Location of Applied Device: Bilateral Lower Extremeties Pharmacologic Type: Enoxaparin
--- NOTE | 2021-02-09 08:15 | HMH.PHAINT ---
home medication list verified using skilled nursing MAR
--- NOTE | 2021-02-09 10:39 | HMH.ACPN2 ---
Internal Medicine - PN: Subj *Date: 02/09/21 *Time: 11:56 Interval history: 40-year-old female patient sitting up in bed, she is consumed approximately half of her breakfast reports she is full, denies nausea. Oxygen saturation 91% on 20 L per nasal saline. She does get short of breath while talking Exam Vital signs and Labs for Last 24 Hours: Temp Pulse Resp BP Pulse Ox 98.5 F 109 H 14 127/88 90 L 02/09/21 08:00 02/09/21 08:00 02/09/21 08:00 02/09/21 08:00 02/09/21 08:00 Laboratory Results - last 24 hr 02/09/21 05:20: Sodium 138, Potassium 3.8, Chloride 98, Carbon Dioxide 36 H, Anion Gap 7.8, BUN 13, Creatinine 0.50 L D, Estimated Creat Clear 143, Estimated GFR 138, Est GFR ( Amer) 167 D, Glucose 127 H, Calcium 7.6 L, Total Bilirubin 0.1 L, Direct Bilirubin 0.1, Conjugated Bilirubin 0.0, Indirect Bilirubin 0.0, Unconjugated Bilirubin 0.0, AST 35, ALT 29, Alkaline Phosphatase 40, Total Protein 6.0 L, Albumin 3.0 L D I & O for Last 24 hours: Intake & Output 02/06/21 02/07/21 02/08/21 02/09/21 23:59 23:59 23:59 23:59 Intake Total 3212 / 3212 600 / 600 Output Total 200 / 200 800 / 800 Balance 3012 / 3012 -200 / -200 Weight 300 lb 313 lb 0.902 oz 313 lb 4.5 oz - Constitutional mild distress, obese, chronically ill appearing - *Routine HEENT Exam Head: Present: normocephalic Eye: Present: EOMI ENT: Present: mucous membranes moist - *Routine Neck Exam Present: trachea midline. Absent: tracheal deviation - *Routine Respiratory Exam Present: decreased breath sounds, crackles - *Routine Cardiovascular Exam Present: RRR, murmur - *Routine Abdominal Exam Present: soft, normoactive bowel sounds, obese. Absent: tenderness, firm - *Routine Extremities Exam Present: edema, full ROM, pulses intact. Absent: cyanosis, calf tenderness - *Routine Skin Exam Present: intact, dry, warm. Absent: cyanosis, erythema - *Routine Neurological Exam Present: alert, altered mental status - Routine Psychiatric Exam Present: unable to assess Assessment and Plan (1) COVID-19 with pulmonary comorbidity Status: Acute Category: Medical Code(s): U07.1 - COVID-19; J98.4 - Other disorders of lung (2) Obesity Status: Acute Qualifiers: Obesity type: due to excess calories Obesity classification: adult class 3 (BMI >= 40) Serious obesity comorbidity presence: with serious comorbidity Body mass index: BMI 50.0-59.9 Qualified Code(s): E66.01 - Morbid (severe) obesity due to excess calories; Z68.43 - Body mass index [BMI] 50.0-59.9, adult Category: Medical Code(s): E66.9 - Obesity, unspecified (3) Schizophrenia Status: Acute Qualifiers: Schizophrenia type: unspecified Qualified Code(s): F20.9 - Schizophrenia, unspecified Category: Medical Code(s): F20.9 - Schizophrenia, unspecified (4) Pickwickian syndrome Status: Acute Category: Medical Code(s): E66.2 - Morbid (severe) obesity with alveolar hypoventilation (5) Respiratory failure with hypoxia and hypercapnia Status: Acute Qualifiers: Chronicity: acute on chronic Qualified Code(s): J96.21 - Acute and chronic respiratory failure with hypoxia; J96.22 - Acute and chronic respiratory failure with hypercapnia Category: Medical Code(s): J96.91 - Respiratory failure, unspecified with hypoxia; J96.92 - Respiratory failure, unspecified with hypercapnia (6) HTN (hypertension) Status: Chronic Qualifiers: Hypertension type: primary hypertension Qualified Code(s): I10 - Essential (primary) hypertension Category: Medical Code(s): I10 - Essential (primary) hypertension (7) Obstructive Sleep Apnea-Hypopnea Syndrome Status: Chronic Category: Medical Code(s): G47.33 - Obstructive sleep apnea (adult) (pediatric) - Assessment and plan all Dx Assessment and Plan for all problems:: Rounded with Dr. Espinosa, all orders per Dr. Espinosa: 1. We will consult cardiology 2.
--- NOTE | 2021-02-09 13:01 | SW/DCPLANNER ---
Addendum entered by [facility] 02/16/21 09:04: No answer from patients family at this time. Addendum entered by [facility] 02/16/21 09:03: This patient will discharge to [facility] today. I will contact patients family and Christopher Haynes. Addendum entered by [facility] 02/15/21 10:02: Holly with [facility] is currently reviewing this patient information. Holly has requested that I update her once patient is weaned off Vapotherm. Addendum entered by [facility] 02/12/21 09:21: Patient information has also been faxed to [facility]. Addendum entered by [facility] 02/11/21 12:40: Anabel with [facility] has followed up with additional questions and will contact me back once she speaks with her Carbon [employer] Maker. I have informed Anabel that patient is not ready for discharge at this time. Addendum entered by [facility] 02/10/21 14:06: [facility] is NOT able to meet this patients needs. Patient information has now been faxed to Perri with [facility]. Addendum entered by [facility] 02/10/21 10:36: I have attempted to follow up with Felicitas: no answer VM left. Original Note: Dr Espinosa has stated that this patient is not medically stable for discharge but patient will required SNF level of care at time of discharge. I spoke with Dora at [facility] in [place] whom stated they are currently accepting COVID positive patients. Patient information has been faxed to Dora. I will continue to follow up. Tessy phone: [phone] fax: [phone]
--- NOTE | 2021-02-09 13:34 | HMH.PULMCON ---
*Admission Date: 02/08/21 *Reason for consult:: Acute hypoxic respiratory failure, COVID-19 pneumonia *History of present illness: Ms. Chatterjee is a 40-year-old female presented to the hospital worsening respiratory symptoms found to be COVID-19 positive and pulmonary was called for further management. Patient is vaccinated. Patient currently acquiring high flow oxygen support to maintain her saturations at that level. [facility] History Medical History: Reports:: Anxiety, Cancer, Depression, Gastroesophageal Reflux Disease(GERD), Hyperlipidemia, Hypertension, Migraine, Seizures Denies:: Diabetes Mellitus Type 1, Diabetes Mellitus Type 2, MRSA *Have you ever received a pneumonia vaccine?: No *Have you received a flu vaccine this season?: No Other Medical History: Reports: Anemia, Other Other Surgeries: Yes: Cholecystectomy, Other Amputation: No Fractures: Yes (humerus fracture) - *Social History Smoking Status: Never smoker #Yrs smoked (if former smoker): 6 Alcohol Intake: never Alcohol Intake Frequency:: other Substance Use Type: denies use *Occupational Status:: unemployed Housing: assisted living facility Household Members: caregiver *Travel in the last 8 weeks: None - Psychiatric History Pschychiatric History:: Reports:: Anxiety, Depression Family Hx:: Unable to obtain ROS - Review of Systems Limited patient mentation appeared to be detached - Cons Reports anorexia, Reports body ache(s) - Card Reports shortness of breath, Reports shortness of breath with activity, Reports leg swelling - Resp Respiratory: Reports chest congestion, Reports dyspnea, Reports dyspnea on exertion - GI Gastrointestingal: Denies: abdominal pain - [place] Musculoskeletal: Reports back pain - Psych Reports abnormal sleep pattern Meds Home Medications Medication Instructions Recorded Confirmed Type benztropine 0.5 mg tablet 0.5 mg PO BID 06/28/17 02/08/21 History dextromethorphan-guaifenesin 10 10 ml PO Q4-6H PRN 06/28/17 02/08/21 History mg-100 mg/5 mL oral syrup divalproex 500 mg tablet,delayed 500 mg PO DAILY 06/28/17 02/09/21 History release ferrous sulfate 325 mg (65 mg 325 mg PO DAILY tab 06/28/17 02/08/21 History iron) tablet fluoxetine 40 mg capsule 40 mg PO DAILY 06/28/17 02/08/21 History folic acid 1 mg tablet 1 mg PO DAILY 06/28/17 02/08/21 History loperamide 2 mg capsule 2 mg PO Q3HP PRN 06/28/17 02/08/21 History medroxyprogesterone 150 mg/mL 150 mg IM [id number] 06/28/17 02/08/21 History intramuscular suspension olanzapine 20 mg tablet 15 mg PO DAILY 06/28/17 02/08/21 History Divalproex Sodium [Depakote] 1,500 mg PO HS 07/28/18 02/08/21 History omeprazole magnesium 20 mg 20 mg PO DAILY tab 07/22/19 02/08/21 History tablet,delayed release haloperidol 10 mg tablet 10 mg PO DAILY tab 01/20/21 02/08/21 History metformin 500 mg tablet 500 mg PO BID tab 01/20/21 02/08/21 History Phentermine HCl 37.5 mg PO DAILY 02/08/21 02/08/21 History bisoproloL fumarate [Bisoprolol 5 mg PO DAILY 02/08/21 02/08/21 History Fumarate] Allergies Allergy/AdvReac Type Severity Reaction Status Date / Time No Known Allergies Allergy Verified 01/20/21 09:55 Exam - Constitutional Constitutional:: Present: comfortable - HENMT Exam HENMT: Present: normocephalic, atraumatic - Eye Exam Eyes:: Present: normal appearance both eyes and related structures - Neck Exam Neck:: Present: normal visual inspection - Respiratory Exam Respiratory:: Present: able to speak in complete sentences, no respiratory distress, decreased breath sounds, crackles - Cardiovascular Exam Cardiac:: Present: S1, S2 - GI Exam GI:: Present: soft, obese - Skin Exam Skin: Present: warm, no rash - Neurological Exam Neurological: Present: awake - Extremities Exam Extremities: Present: no cyanosis, no clubbing Internal Medicine - CN: Reslt - Labs CBC & Chem 7: 02/08/21 06:30 02/09/21 05:20 Labs: BMP 02/09/21
[2021-02-10] VITALS (11 sets, daily range): BP systolic 122–151; BP diastolic 70–95; PULSE 78–108; RESP 18–22; TEMP 36.6–36.8; O2SAT 89–96; BMI 49.6
--- NOTE | 2021-02-10 03:42 | PC.NURSE ---
A&OX3. PT TOLERATING VAPOTHERM, 30L 65%. O2 SAT ABOVE 88%. PT HAS HAD NO C/O THUS FAR THIS SHIFT. PT HAS RESTED IN BED MAJORITY OF SHIFT. VSS WILL CONTINUE TO MONITOR.
[2021-02-10 06:48] LABS: Basophils # 0.1 K/mm3 (0-0.2); Basophils % 0.9 % (0.1-2.0); Eosinophils % 0.2 % (0.1-12.0); Hematocrit 42.5 % (37.0-47.0); Hemoglobin 13.4 g/dL (12.2-16.2); Lymphocytes # 2.5 K/mm3 (0.7-4.5); Lymphocytes % 37.9 % (10-50); Mean Corpuscular HGB Conc 31.6 g/dL (31.8-35.4); Mean Corpuscular Volume 94.8 fl (81-99); Mean Platelet Volume 8.7 fl (7.4-10.4); Monocytes # 0.6 K/mm3 (0.1-1.0); Neutrophils # 3.4 K/mm3 (1.8-7.8); Neutrophils % 51.9 % (37.0-80.0); Platelet Count 369 K/mm3 (142-424); Red Blood Count 4.48 M/mm3 (4.20-5.40); Red Cell Distribution Width 13.5 % (11.5-17.5); White Blood Count 6.5 K/mm3 (4.8-10.8)
[2021-02-10 06:54] LABS: Alanine Aminotransferase 36 U/L (12-78); Albumin Level 3.2 g/dl (3.5-5.0); Alkaline Phosphatase 40 U/L (38-126); Anion Gap 9.1 mEq/L (5-15); Aspartate Amino Transferase 45 U/L (14-36); Bilirubin,Direct 0.2 mg/dl (0.0-0.4); Bilirubin,Indirect 0.1 mg/dL (0.0-0.9); Bilirubin,Total 0.3 mg/dl (0.2-1.3); Bilirubin,Unconjugated 0.1 mg/dL (0.0-1.1); Blood Urea Nitrogen 17 mg/dl (7-17); Carbon Dioxide 37 mmol/L (22.0-30.0); Chloride 98 mmol/L (98-107); Creatinine Clearance Estimated 143 mL/min (50-200); Estimated Glomerular Filt Rate 138 ml/min (>60); GFR (African American) 167 ML/MIN (>60); Glucose 106 mg/dl (74-100); Potassium 4.1 mmoL/L (3.5-5.1); Sodium 140 mmol/L (136-145); Total Protein,Serum 6.5 g/dl (6.3-8.2)
--- NOTE | 2021-02-10 08:55 | HMH.PULMPN ---
Internal Medicine - PN: Subj *Date: 02/10/21 *Time: 11:53 Interval history: No acute respiratory events overnight, patient was transferred to floor from ICU. She denies any new respiratory complaints. Exam - Constitutional Constitutional:: Present: comfortable - HENMT Exam HENMT: Present: normocephalic, atraumatic - Eye Exam Eyes:: Present: normal appearance both eyes and related structures - Neck Exam Neck:: Present: normal visual inspection - Respiratory Exam Respiratory:: Present: respiratory distress, decreased breath sounds, crackles, wheezing - Cardiovascular Exam Cardiac:: Present: S1, S2 - GI Exam GI:: Present: soft, obese - Neurological Exam Neurological: Present: awake - Extremities Exam Extremities: Present: no cyanosis, no clubbing - Psychiatric Exam Psychiatric: Present: flat affect Assessment and Plan (1) COVID-19 with pulmonary comorbidity Status: Acute Category: Medical Code(s): U07.1 - COVID-19; J98.4 - Other disorders of lung (2) Obesity Status: Acute Qualifiers: Obesity type: due to excess calories Obesity classification: adult class 3 (BMI >= 40) Serious obesity comorbidity presence: with serious comorbidity Body mass index: BMI 50.0-59.9 Qualified Code(s): E66.01 - Morbid (severe) obesity due to excess calories; Z68.43 - Body mass index [BMI] 50.0-59.9, adult Category: Medical Code(s): E66.9 - Obesity, unspecified (3) Schizophrenia Status: Acute Qualifiers: Schizophrenia type: unspecified Qualified Code(s): F20.9 - Schizophrenia, unspecified Category: Medical Code(s): F20.9 - Schizophrenia, unspecified (4) Pickwickian syndrome Status: Acute Category: Medical Code(s): E66.2 - Morbid (severe) obesity with alveolar hypoventilation (5) Respiratory failure with hypoxia and hypercapnia Status: Acute Qualifiers: Chronicity: acute on chronic Qualified Code(s): J96.21 - Acute and chronic respiratory failure with hypoxia; J96.22 - Acute and chronic respiratory failure with hypercapnia Category: Medical Code(s): J96.91 - Respiratory failure, unspecified with hypoxia; J96.92 - Respiratory failure, unspecified with hypercapnia (6) HTN (hypertension) Status: Chronic Qualifiers: Hypertension type: primary hypertension Qualified Code(s): I10 - Essential (primary) hypertension Category: Medical Code(s): I10 - Essential (primary) hypertension (7) Obstructive Sleep Apnea-Hypopnea Syndrome Status: Chronic Category: Medical Code(s): G47.33 - Obstructive sleep apnea (adult) (pediatric) - Assessment and plan all Dx Assessment and Plan for all problems:: #Acute hypoxic respiratory failure: #COVID-19 pneumonia: 40-year-old female morbidly obese, history of sleep apnea with AHI 108 - not compliant with BiPAP presents with worsening respiratory distress and found to be COVID-[address] on admission did not show any evidence of pulmonary embolism showed bilateral patchy groundglass opacities along with concerning lymphadenopathy. Bilateral crackles decreased breath sounds. Patient currently on high flow nasal cannula 100% 40 L to maintain saturations at 95. CRP elevated at 87.4 Blood cultures no growth 48 hours. Nasal MRSA PCR pending. Received 40 mg IV Lasix yesterday. Renal function stable. Given patient's morbid obesity body habitus and high oxygen equipment patient is high risk for decompensation on further complications. We will closely monitor patient's clinical status. Plan: -Wean high flow nasal cannula settings to maintain O2 saturation goal of 90% and above. -Continue awake proning protocol -Continue remdesivir and dexamethasone 6 mg daily along with Barcitinib -Continue Levoflaxacin for possible community-acquired pneumonia. -DuoNebs every 6 scheduled along with budesonide every 12 scheduled #Thank for involving pulmonary in this patient care. We will continue to follow. # Given patient's acute
--- NOTE | 2021-02-10 11:02 | DIET.NUTRFU ---
PO intakes 50%, daily protein shake added to order. Weight stable.
--- NOTE | 2021-02-10 17:43 | PC.NURSE ---
Pt has slept majority of this shift. Encouraged prone lying this shift and pt can only tolerate for approx 2-3 min before calling out that she can't breathe . Pt has taken off vapotherm multiple times, 02 sats would drop as low as 77% during this time. o2 sats increased after 1-2 min and would be between 87-92%. Pt did have x1 smalll, soft BM this shift. Morris cath draining clear, dark yellow urine. No other acute changes or complaints, will continue to monitor.
--- NOTE | 2021-02-10 20:09 | PC.NURSE ---
PT UNABLE TO PRODUCE SPUTUM AT THIS TIME. LEFT CUP AT BEDSIDE.
--- NOTE | 2021-02-10 20:09 | HMH.ACPN2 ---
Internal Medicine - PN: Subj *Date: 02/10/21 *Time: 09:10 Interval history: pt laying in bed, vapertherm in place. pt states no c/o Exam Vital signs and Labs for Last 24 Hours: Temp Pulse Resp BP Pulse Ox 97.8 F 87 20 122/70 91 L 02/10/21 16:00 02/10/21 16:00 02/10/21 16:00 02/10/21 16:00 02/10/21 18:22 Laboratory Results - last 24 hr 02/10/21 06:25: Sodium 140, Potassium 4.1, Chloride 98, Carbon Dioxide 37 H, Anion Gap 9.1, BUN 17 D, Creatinine 0.50 L, Estimated Creat Clear 143, Estimated GFR 138, Est GFR ( Amer) 167, Glucose 106 H, Calcium 8.0 L, Total Bilirubin 0.3, Direct Bilirubin 0.2, Conjugated Bilirubin 0.0, Indirect Bilirubin 0.1, Unconjugated Bilirubin 0.1, AST 45 H D, ALT 36, Alkaline Phosphatase 40, Total Protein 6.5, Albumin 3.2 L 02/10/21 06:25: WBC 6.5, RBC 4.48, Hgb 13.4, Hct 42.5, MCV 94.8, MCH 30.0, MCHC 31.6 L, RDW 13.5, Plt Count 369 D, MPV 8.7, Neut % (Auto) 51.9, Lymph % (Auto) 37.9, [place]urry % (Auto) 9.0, Eos % (Auto) 0.2, Baso % (Auto) 0.9, Neut # (Auto) 3.4, Lymph # (Auto) 2.5, [place]urry # (Auto) 0.6, Eos # (Auto) 0.0, Baso # (Auto) 0.1 I & O for Last 24 hours: Intake & Output 02/08/21 02/09/21 02/10/21 02/11/21 11:59 11:59 11:59 11:59 Intake Total 1580 / 1580 2232 / 2232 1540 / 1540 940 / 940 Output Total 1000 / 1000 3550 / 3550 100 / 100 Balance 1580 / 1580 1232 / 1232 -2009 / 840 / 840 Weight 313 lb 0.902 oz 313 lb 4.5 oz 316 lb Microbiology Reports for the Last 24 Hours: Microbiology 02/07/21 23:55 Blood Blood Culture - Preliminary NO GROWTH AFTER 48 HOURS 02/07/21 23:55 Blood Blood Culture - Preliminary NO GROWTH AFTER 48 HOURS - Constitutional no acute distress, obese - *Routine HEENT Exam Head: Present: normocephalic Eye: Present: PERRL ENT: Present: mucous membranes moist - *Routine Neck Exam Present: supple. Absent: lymphadenopathy - *Routine Respiratory Exam Present: decreased breath sounds, wheezes - *Routine Cardiovascular Exam Present: RRR - *Routine Abdominal Exam Present: soft, normoactive bowel sounds. Absent: tenderness - *Routine Extremities Exam Present: normal capillary refill. Absent: cyanosis, clubbing, edema - *Routine Skin Exam Present: warm. Absent: rash - *Routine Neurological Exam Present: alert Assessment and Plan (1) COVID-19 with pulmonary comorbidity Status: Acute Category: Medical Code(s): U07.1 - COVID-19; J98.4 - Other disorders of lung (2) Obesity Status: Acute Qualifiers: Obesity type: due to excess calories Obesity classification: adult class 3 (BMI >= 40) Serious obesity comorbidity presence: with serious comorbidity Body mass index: BMI 50.0-59.9 Qualified Code(s): E66.01 - Morbid (severe) obesity due to excess calories; Z68.43 - Body mass index [BMI] 50.0-59.9, adult Category: Medical Code(s): E66.9 - Obesity, unspecified (3) Schizophrenia Status: Acute Qualifiers: Schizophrenia type: unspecified Qualified Code(s): F20.9 - Schizophrenia, unspecified Category: Medical Code(s): F20.9 - Schizophrenia, unspecified (4) Pickwickian syndrome Status: Acute Category: Medical Code(s): E66.2 - Morbid (severe) obesity with alveolar hypoventilation (5) Respiratory failure with hypoxia and hypercapnia Status: Acute Qualifiers: Chronicity: acute on chronic Qualified Code(s): J96.21 - Acute and chronic respiratory failure with hypoxia; J96.22 - Acute and chronic respiratory failure with hypercapnia Category: Medical Code(s): J96.91 - Respiratory failure, unspecified with hypoxia; J96.92 - Respiratory failure, unspecified with hypercapnia (6) HTN (hypertension) Status: Chronic Qualifiers: Hypertension type: primary hypertension Qualified Code(s): I10 - Essential (primary) hypertension Category: Medical Code(s): I10 - Essential (primary) hypertension (7)
[2021-02-11] VITALS (11 sets, daily range): BP systolic 117–148; BP diastolic 74–93; PULSE 68–106; RESP 18–24; TEMP 36.6–37.2; O2SAT 90–97; BMI 49.6
[2021-02-11 06:24] LABS: Basophils # 0.2 K/mm3 (0-0.2); Basophils % 1.9 % (0.1-2.0); Eosinophils % 0.3 % (0.1-12.0); Hematocrit 44.2 % (37.0-47.0); Hemoglobin 13.9 g/dL (12.2-16.2); Lymphocytes # 3.7 K/mm3 (0.7-4.5); Lymphocytes % 46.1 % (10-50); Mean Corpuscular HGB Conc 31.5 g/dL (31.8-35.4); Mean Corpuscular Hemoglobin 30.2 pg (27.0-31.2); Mean Corpuscular Volume 95.8 fl (81-99); Mean Platelet Volume 9.8 fl (7.4-10.4); Monocytes # 1.1 K/mm3 (0.1-1.0); Monocytes % 13.6 % (1.7-9.3); Neutrophils # 3.1 K/mm3 (1.8-7.8); Neutrophils % 38.3 % (37.0-80.0); Platelet Count 408 K/mm3 (142-424); Red Blood Count 4.61 M/mm3 (4.20-5.40); Red Cell Distribution Width 13.6 % (11.5-17.5); White Blood Count 8.1 K/mm3 (4.8-10.8)
[2021-02-11 06:34] LABS: Alanine Aminotransferase 60 U/L (12-78); Albumin Level 3.2 g/dl (3.5-5.0); Alkaline Phosphatase 35 U/L (38-126); Anion Gap 9.6 mEq/L (5-15); Aspartate Amino Transferase 71 U/L (14-36); Bilirubin,Direct 0.3 mg/dl (0.0-0.4); Bilirubin,Indirect 0.1 mg/dL (0.0-0.9); Bilirubin,Total 0.4 mg/dl (0.2-1.3); Bilirubin,Unconjugated 0.1 mg/dL (0.0-1.1); Blood Urea Nitrogen 18 mg/dl (7-17); Carbon Dioxide 37 mmol/L (22.0-30.0); Chloride 98 mmol/L (98-107); Creatinine Clearance Estimated 119 mL/min (50-200); Estimated Glomerular Filt Rate 112 ml/min (>60); GFR (African American) 135 ML/MIN (>60); Glucose 94 mg/dl (74-100); Potassium 4.6 mmoL/L (3.5-5.1); Sodium 140 mmol/L (136-145); Total Protein,Serum 6.5 g/dl (6.3-8.2)
--- NOTE | 2021-02-11 06:42 | PC.NURSE ---
No s/s of acute distress noted; call light within reach, bed at lowest level for safety; will continue to monitor.
--- NOTE | 2021-02-11 06:44 | PC.NURSE ---
No s/s of acute distress noted; call light within reach, bed at lowest level for safety; will continue to monitor.
--- NOTE | 2021-02-11 09:49 | HMH.ACPN2 ---
Internal Medicine - PN: Subj *Date: 02/11/21 *Time: 20:46 Interval history: 40-year-old female patient sitting up in bed consuming breakfast. Vapotherm still in place patient is slightly short of breath during eating, will not answer questions will only voice yes/no occasionally. Exam Vital signs and Labs for Last 24 Hours: Temp Pulse Resp BP Pulse Ox 99.0 F 73 18 143/93 H 92 L 02/11/21 07:50 02/11/21 07:50 02/11/21 07:50 02/11/21 07:50 02/11/21 07:50 Laboratory Results - last 24 hr 02/11/21 05:53: Sodium 140, Potassium 4.6, Chloride 98, Carbon Dioxide 37 H, Anion Gap 9.6, BUN 18 H, Creatinine 0.60, Estimated Creat Clear 119, Estimated GFR 112, Est GFR ( Amer) 135, Glucose 94, Calcium 8.0 L, Total Bilirubin 0.4, Direct Bilirubin 0.3, Conjugated Bilirubin 0.0, Indirect Bilirubin 0.1, Unconjugated Bilirubin 0.1, AST 71 H D, ALT 60 D, Alkaline Phosphatase 35 L, Total Protein 6.5, Albumin 3.2 L 02/11/21 05:53: WBC 8.1, RBC 4.61, Hgb 13.9, Hct 44.2, MCV 95.8, MCH 30.2, MCHC 31.5 L, RDW 13.6, Plt Count 408, MPV 9.8, Neut % (Auto) 38.3, Lymph % (Auto) 46.1, Steele % (Auto) 13.6 H, Eos % (Auto) 0.3, Baso % (Auto) 1.9, Neut # (Auto) 3.1, Lymph # (Auto) 3.7, Steele # (Auto) 1.1 H, Eos # (Auto) 0.0, Baso # (Auto) 0.2 I & O for Last 24 hours: Intake & Output 02/08/21 02/09/21 02/10/21 02/11/21 23:59 23:59 23:59 23:59 Intake Total 3212 / 3212 960 / 1440 2120 / 2840 1460 / 1460 Output Total 200 / 200 3300 / 4050 1150 / 2250 1100 / 1100 Balance 3012 / 3012 -2340 / -2610 970 / 590 360 / 360 Weight 313 lb 0.902 oz 313 lb 4.5 oz 316 lb 316 lb 2 oz - Constitutional mild distress, obese, chronically ill appearing - *Routine HEENT Exam Head: Present: normocephalic Eye: Present: EOMI ENT: Present: mucous membranes moist - *Routine Neck Exam Present: trachea midline, tracheal deviation - *Routine Respiratory Exam Present: crackles - *Routine Cardiovascular Exam Present: RRR - *Routine Abdominal Exam Present: soft, normoactive bowel sounds, obese. Absent: tenderness - *Routine Extremities Exam Present: edema, full ROM, pulses intact. Absent: cyanosis, clubbing - *Routine Skin Exam Present: intact, dry, warm. Absent: cyanosis, erythema - *Routine Neurological Exam Present: alert, altered mental status - Routine Psychiatric Exam Present: unable to assess Assessment and Plan (1) COVID-19 with pulmonary comorbidity Status: Acute Category: Medical Code(s): U07.1 - COVID-19; J98.4 - Other disorders of lung (2) Obesity Status: Acute Qualifiers: Obesity type: due to excess calories Obesity classification: adult class 3 (BMI >= 40) Serious obesity comorbidity presence: with serious comorbidity Body mass index: BMI 50.0-59.9 Qualified Code(s): E66.01 - Morbid (severe) obesity due to excess calories; Z68.43 - Body mass index [BMI] 50.0-59.9, adult Category: Medical Code(s): E66.9 - Obesity, unspecified (3) Schizophrenia Status: Acute Qualifiers: Schizophrenia type: unspecified Qualified Code(s): F20.9 - Schizophrenia, unspecified Category: Medical Code(s): F20.9 - Schizophrenia, unspecified (4) Pickwickian syndrome Status: Acute Category: Medical Code(s): E66.2 - Morbid (severe) obesity with alveolar hypoventilation (5) Respiratory failure with hypoxia and hypercapnia Status: Acute Qualifiers: Chronicity: acute on chronic Qualified Code(s): J96.21 - Acute and chronic respiratory failure with hypoxia; J96.22 - Acute and chronic respiratory failure with hypercapnia Category: Medical Code(s): J96.91 - Respiratory failure, unspecified with hypoxia; J96.92 - Respiratory failure, unspecified with hypercapnia (6) HTN (hypertension) Status: Chronic Qualifiers: Hypertension type: primary hypertension Qualified Code(s): I10 - Essential (primary) hypertension Category: Medical Code(s): I10 - Essential (primary) hypertension
--- NOTE | 2021-02-11 11:14 | HMH.PULMPN ---
Internal Medicine - PN: Subj *Date: 02/11/21 *Time: 11:14 Interval history: No acute respiratory events overnight. Patient admits only minimal improvement in her respiratory symptoms Exam - Constitutional Constitutional:: Present: no acute distress, comfortable - HENMT Exam HENMT: Present: normocephalic, atraumatic - Eye Exam Eyes:: Present: normal appearance both eyes and related structures - Neck Exam Neck:: Present: normal visual inspection - Respiratory Exam Respiratory:: Present: able to speak in complete sentences, no respiratory distress, decreased breath sounds, crackles - Cardiovascular Exam Cardiac:: Present: S1, S2 - GI Exam GI:: Present: soft, obese - Skin Exam Skin: Present: warm, no rash - Neurological Exam Neurological: Present: alert, awake - Extremities Exam Extremities: Present: no cyanosis, no clubbing, edema - Psychiatric Exam Psychiatric: Present: normal affect Assessment and Plan (1) COVID-19 with pulmonary comorbidity Status: Acute Category: Medical Code(s): U07.1 - COVID-19; J98.4 - Other disorders of lung (2) Obesity Status: Acute Qualifiers: Obesity type: due to excess calories Obesity classification: adult class 3 (BMI >= 40) Serious obesity comorbidity presence: with serious comorbidity Body mass index: BMI 50.0-59.9 Qualified Code(s): E66.01 - Morbid (severe) obesity due to excess calories; Z68.43 - Body mass index [BMI] 50.0-59.9, adult Category: Medical Code(s): E66.9 - Obesity, unspecified (3) Schizophrenia Status: Acute Qualifiers: Schizophrenia type: unspecified Qualified Code(s): F20.9 - Schizophrenia, unspecified Category: Medical Code(s): F20.9 - Schizophrenia, unspecified (4) Pickwickian syndrome Status: Acute Category: Medical Code(s): E66.2 - Morbid (severe) obesity with alveolar hypoventilation (5) Respiratory failure with hypoxia and hypercapnia Status: Acute Qualifiers: Chronicity: acute on chronic Qualified Code(s): J96.21 - Acute and chronic respiratory failure with hypoxia; J96.22 - Acute and chronic respiratory failure with hypercapnia Category: Medical Code(s): J96.91 - Respiratory failure, unspecified with hypoxia; J96.92 - Respiratory failure, unspecified with hypercapnia (6) HTN (hypertension) Status: Chronic Qualifiers: Hypertension type: primary hypertension Qualified Code(s): I10 - Essential (primary) hypertension Category: Medical Code(s): I10 - Essential (primary) hypertension (7) Obstructive Sleep Apnea-Hypopnea Syndrome Status: Chronic Category: Medical Code(s): G47.33 - Obstructive sleep apnea (adult) (pediatric) - Assessment and plan all Dx Assessment and Plan for all problems:: #Acute hypoxic respiratory failure: #COVID-19 pneumonia: 40-year-old female morbidly obese, history of sleep apnea with AHI 108 - not compliant with BiPAP presents with worsening respiratory distress and found to be COVID-19 positive. CTA on admission did not show any evidence of pulmonary embolism showed bilateral patchy groundglass opacities along with concerning lymphadenopathy. CRP elevated at 87.4 Blood cultures no growth 48 hours. Nasal MRSA PCR pending. Patient respiratory only showed minimal improvement since admission, she this morning on 40 L 70% saturating 92%. Plan: -Wean high flow nasal cannula settings to maintain O2 saturation goal of 90% and above. Will initiate nocturnal BiPAP therapy at 05/24 for her severe sleep apnea. -Continue awake proning protocol -Continue remdesivir and dexamethasone 6 mg daily along with Barcitinib -Continue Levoflaxacin x 5 days for possible community-acquired pneumonia. -DuoNebs every 6 scheduled along with budesonide every 12 scheduled #Thank for involving pulmonary in this patient care. We will continue to follow. # Given patient's acute clinical condition, will follow with outpatient CT chest to determine etiology and for
--- NOTE | 2021-02-11 12:23 | HMH.ACPN ---
Internal Medicine - PN: Subj *Date: 02/11/21 *Time: 12:23 Exam Vital signs and Labs for Last 24 Hours: Temp Pulse Resp BP Pulse Ox 99.0 F 106 H 18 143/93 H 94 L 02/11/21 07:50 02/11/21 08:00 02/11/21 07:50 02/11/21 07:50 02/11/21 08:00 Laboratory Results - last 24 hr 02/11/21 05:53: Sodium 140, Potassium 4.6, Chloride 98, Carbon Dioxide 37 H, Anion Gap 9.6, BUN 18 H, Creatinine 0.60, Estimated Creat Clear 119, Estimated GFR 112, Est GFR ( Amer) 135, Glucose 94, Calcium 8.0 L, Total Bilirubin 0.4, Direct Bilirubin 0.3, Conjugated Bilirubin 0.0, Indirect Bilirubin 0.1, Unconjugated Bilirubin 0.1, AST 71 H D, ALT 60 D, Alkaline Phosphatase 35 L, Total Protein 6.5, Albumin 3.2 L 02/11/21 05:53: WBC 8.1, RBC 4.61, Hgb 13.9, Hct 44.2, MCV 95.8, MCH 30.2, MCHC 31.5 L, RDW 13.6, Plt Count 408, MPV 9.8, Neut % (Auto) 38.3, Lymph % (Auto) 46.1, Treasure % (Auto) 13.6 H, Eos % (Auto) 0.3, Baso % (Auto) 1.9, Neut # (Auto) 3.1, Lymph # (Auto) 3.7, [place] # (Auto) 1.1 H, Eos # (Auto) 0.0, Baso # (Auto) 0.2 I & O for Last 24 hours: Intake & Output 02/08/21 02/09/21 02/10/21 02/11/21 23:59 23:59 23:59 23:59 Intake Total 3212 / 3212 960 / 1440 2120 / 2840 1460 / 1460 Output Total 200 / 200 3300 / 4050 1150 / 2250 1100 / 1100 Balance 3012 / 3012 -2340 / -2610 970 / 590 360 / 360 Weight 142 kg 142.102 kg 143.335 kg 143.392 kg Assessment and Plan (1) COVID-19 with pulmonary comorbidity Status: Acute Category: Medical Code(s): U07.1 - COVID-19; J98.4 - Other disorders of lung (2) Obesity Status: Acute Qualifiers: Obesity type: due to excess calories Obesity classification: adult class 3 (BMI >= 40) Serious obesity comorbidity presence: with serious comorbidity Body mass index: BMI 50.0-59.9 Qualified Code(s): E66.01 - Morbid (severe) obesity due to excess calories; Z68.43 - Body mass index [BMI] 50.0-59.9, adult Category: Medical Code(s): E66.9 - Obesity, unspecified (3) Schizophrenia Status: Acute Qualifiers: Schizophrenia type: unspecified Qualified Code(s): F20.9 - Schizophrenia, unspecified Category: Medical Code(s): F20.9 - Schizophrenia, unspecified (4) Pickwickian syndrome Status: Acute Category: Medical Code(s): E66.2 - Morbid (severe) obesity with alveolar hypoventilation (5) Respiratory failure with hypoxia and hypercapnia Status: Acute Qualifiers: Chronicity: acute on chronic Qualified Code(s): J96.21 - Acute and chronic respiratory failure with hypoxia; J96.22 - Acute and chronic respiratory failure with hypercapnia Category: Medical Code(s): J96.91 - Respiratory failure, unspecified with hypoxia; J96.92 - Respiratory failure, unspecified with hypercapnia (6) HTN (hypertension) Status: Chronic Qualifiers: Hypertension type: primary hypertension Qualified Code(s): I10 - Essential (primary) hypertension Category: Medical Code(s): I10 - Essential (primary) hypertension (7) Obstructive Sleep Apnea-Hypopnea Syndrome Status: Chronic Category: Medical Code(s): G47.33 - Obstructive sleep apnea (adult) (pediatric) The patient's infection will respond to the chosen ABx?: Yes Is the patient receiving the right drug, dose, and route?: Yes Could a more targeted ABx be ordered?: No (BLOOD CX - X2. CONTINUE CURRENT ABX.)
--- NOTE | 2021-02-11 12:56 | PC.NURSE ---
PT IS SITTING UP IN THE CHAIR AT THIS TIME. ALERT AND ORIENTED X4. EARLY THIS MORNING DURING ASSESSMENT PT WAS VERY SLUGGISH BUT BECAME MORE TALKATIVE AND ALERT AT 1100. PT HAD A LARGE INCONTINENT STOOL THIS SHIFT. BATH AND TOTAL LINEN CHANGE THIS SHIFT. PT WAS ABLE TO GET OOB WITH ONE ASSIST TO CHAIR. PT STATES SHE USUALLY WALKS ON A REGULAR BASIS BUT HAS NOT BEEN ABLE TO DO MUCH ACTIVITY SINCE SHE'S BEEN IN THE HOSPITAL. EATING AND DRINKING WELL. O2 SATURATION HAS MAINTAINED 90-95% ON VAPOTHERM AT 70% FIO2 AND 40 L. LUNG SOUNDS DIMINISHED WITH BLL CRACKLES. ABDOMEN SOFT/LARGE NON TENDER WITH ACTIVE BOWEL SOUNDS. WILL CONTINUE TO MONITOR.
[2021-02-12] VITALS (9 sets, daily range): BP systolic 128–148; BP diastolic 72–91; PULSE 68–91; RESP 18–24; TEMP 36.6–36.9; O2SAT 94–98; BMI 49.0
--- NOTE | 2021-02-12 03:12 | PC.NURSE ---
No acute changes t/o night. Pt remains on vapotherm 40L/min with O2 stats 95-97%. Pt denies any pain or SOA. VSS, call light within reach, will continue to monitor.
[2021-02-12 06:39] LABS: Basophils # 0.2 K/mm3 (0-0.2); Basophils % 1.7 % (0.1-2.0); Eosinophils % 0.1 % (0.1-12.0); Lymphocytes # 6.2 K/mm3 (0.7-4.5); Lymphocytes % 47.7 % (10-50); Mean Corpuscular Hemoglobin 29.2 pg (27.0-31.2); Mean Corpuscular Volume 94.1 fl (81-99); Mean Platelet Volume 7.8 fl (7.4-10.4); Monocytes # 0.9 K/mm3 (0.1-1.0); Monocytes % 7.2 % (1.7-9.3); Neutrophils # 5.6 K/mm3 (1.8-7.8); Neutrophils % 43.2 % (37.0-80.0); Platelet Count 494 K/mm3 (142-424); Red Blood Count 4.78 M/mm3 (4.20-5.40); Red Cell Distribution Width 13.6 % (11.5-17.5)
[2021-02-12 06:52] LABS: Alanine Aminotransferase 83 U/L (12-78); Albumin Level 3.2 g/dl (3.5-5.0); Alkaline Phosphatase 55 U/L (38-126); Anion Gap 13.4 mEq/L (5-15); Aspartate Amino Transferase 70 U/L (14-36); Bilirubin,Direct 0.1 mg/dl (0.0-0.4); Bilirubin,Indirect 0.1 mg/dL (0.0-0.9); Bilirubin,Total 0.2 mg/dl (0.2-1.3); Bilirubin,Unconjugated 0.1 mg/dL (0.0-1.1); Blood Urea Nitrogen 18 mg/dl (7-17); Calcium 8.4 mg/dl (8.4-10.2); Carbon Dioxide 36 mmol/L (22.0-30.0); Chloride 96 mmol/L (98-107); Creatinine Clearance Estimated 119 mL/min (50-200); Estimated Glomerular Filt Rate 112 ml/min (>60); GFR (African American) 135 ML/MIN (>60); Glucose 96 mg/dl (74-100); Potassium 4.4 mmoL/L (3.5-5.1); Sodium 141 mmol/L (136-145); Total Protein,Serum 6.2 g/dl (6.3-8.2)
--- NOTE | 2021-02-12 08:19 | XR_ITS ---
PROCEDURE: XR CHEST PORTABLE CLINICAL HISTORY: covid Pneumonia follow-up COMPARISON: No exams were available for comparison FINDINGS: There are low lung volumes. Bilateral ground-glass infiltrates are present in the mid lower lung zones and may be slightly improved on the right. Right hemidiaphragm is slightly elevated. No effusions. No evidence of pneumothorax. No acute bony abnormalities. IMPRESSION: Bilateral pneumonia which may be slightly improved on the right Dictated by: Varun Harden MD 02/12/2021 08:51 Varun Harden MD in [facility] 02/12/2021 08:51
--- NOTE | 2021-02-12 09:32 | HMH.PULMPN ---
Internal Medicine - PN: Subj *Date: 02/12/21 *Time: 11:38 Interval history: No acute respiratory vents overnight. Patient refused BiPAP. Denies any new respiratory complaints. Exam - Constitutional Constitutional:: Present: no acute distress - HENMT Exam HENMT: Present: normocephalic - Eye Exam Eyes:: Present: normal appearance both eyes and related structures - Neck Exam Neck:: Present: normal visual inspection - Respiratory Exam Respiratory:: Present: able to speak in complete sentences, no respiratory distress, decreased breath sounds, crackles - Cardiovascular Exam Cardiac:: Present: S1, S2 - GI Exam GI:: Present: obese - Skin Exam Skin: Present: warm - Neurological Exam Neurological: Present: alert, awake, normal cognition - Extremities Exam Extremities: Present: no cyanosis, no clubbing, edema Assessment and Plan (1) COVID-19 with pulmonary comorbidity Status: Acute Category: Medical Code(s): U07.1 - COVID-19; J98.4 - Other disorders of lung (2) Obesity Status: Acute Qualifiers: Obesity type: due to excess calories Obesity classification: adult class 3 (BMI >= 40) Serious obesity comorbidity presence: with serious comorbidity Body mass index: BMI 50.0-59.9 Qualified Code(s): E66.01 - Morbid (severe) obesity due to excess calories; Z68.43 - Body mass index [BMI] 50.0-59.9, adult Category: Medical Code(s): E66.9 - Obesity, unspecified (3) Schizophrenia Status: Acute Qualifiers: Schizophrenia type: unspecified Qualified Code(s): F20.9 - Schizophrenia, unspecified Category: Medical Code(s): F20.9 - Schizophrenia, unspecified (4) Pickwickian syndrome Status: Acute Category: Medical Code(s): E66.2 - Morbid (severe) obesity with alveolar hypoventilation (5) Respiratory failure with hypoxia and hypercapnia Status: Acute Qualifiers: Chronicity: acute on chronic Qualified Code(s): J96.21 - Acute and chronic respiratory failure with hypoxia; J96.22 - Acute and chronic respiratory failure with hypercapnia Category: Medical Code(s): J96.91 - Respiratory failure, unspecified with hypoxia; J96.92 - Respiratory failure, unspecified with hypercapnia (6) HTN (hypertension) Status: Chronic Qualifiers: Hypertension type: primary hypertension Qualified Code(s): I10 - Essential (primary) hypertension Category: Medical Code(s): I10 - Essential (primary) hypertension (7) Obstructive Sleep Apnea-Hypopnea Syndrome Status: Chronic Category: Medical Code(s): G47.33 - Obstructive sleep apnea (adult) (pediatric) - Assessment and plan all Dx Assessment and Plan for all problems:: #Acute hypoxic respiratory failure: #COVID-19 pneumonia: 40-year-old female morbidly obese, history of sleep apnea with AHI 108 - not compliant with BiPAP presents with worsening respiratory distress and found to be COVID-19 positive. CTA on admission did not show any evidence of pulmonary embolism showed bilateral patchy groundglass opacities along with concerning lymphadenopathy. CRP elevated at 87.4 Blood cultures no growth 48 hours. Nasal MRSA PCR pending. Mild worsening leukocytosis, will continue to monitor in the setting of improving off requirements and improving chest x-ray. Patient refused BiPAP overnight. Respiratory status slightly improved, wean FiO2 to 55% at 40 L. We will continue to wean as tolerated. Plan: -Lasix 40 mg IV once -Incentive spirometry -Wean high flow nasal cannula settings to maintain O2 saturation goal of 90% and above. -Continue awake proning protocol -Continue remdesivir and dexamethasone 6 mg daily along with Barcitinib -Continue Levoflaxacin x 5 days for possible community-acquired pneumonia. -DuoNebs every 6 scheduled along with budesonide every 12 scheduled #Thank for involving pulmonary in this patient care. We will continue to follow. # Given patient's acute clinical condition, will follow with outpatient
--- NOTE | 2021-02-12 11:22 | DIET.NUTRFU ---
Addendum entered by Lori Kumar 02/15/21 10:37: Appetite improved- PO intakes 75-100%. Protein shake removed from order at this time. Weight stable, has not had a BM since 02/10. Original Note: PO intakes 75% + daily protein shake, weight stable, bowel function normal.
--- NOTE | 2021-02-12 13:17 | HMH.ACPN2 ---
Internal Medicine - PN: Subj *Date: 02/12/21 *Time: 08:40 Interval history: pt eating breakfast, states she sits up in chair, still on vapertherm Exam Vital signs and Labs for Last 24 Hours: Temp Pulse Resp BP Pulse Ox 98.4 F 80 20 131/81 95 02/12/21 11:12 02/12/21 11:12 02/12/21 11:12 02/12/21 11:12 02/12/21 11:12 Laboratory Results - last 24 hr 02/12/21 06:08: Sodium 141, Potassium 4.4, Chloride 96 L, Carbon Dioxide 36 H, Anion Gap 13.4, BUN 18 H, Creatinine 0.60, Estimated Creat Clear 119, Estimated GFR 112, Est GFR ( Amer) 135, Glucose 96, Calcium 8.4, Total Bilirubin 0.2, Direct Bilirubin 0.1, Conjugated Bilirubin 0.0, Indirect Bilirubin 0.1, Unconjugated Bilirubin 0.1, AST 70 H, ALT 83 H D, Alkaline Phosphatase 55, Total Protein 6.2 L, Albumin 3.2 L 02/12/21 06:08: WBC 13.0 H D, RBC 4.78, Hgb 14.0, Hct 45.0, MCV 94.1, MCH 29.2, MCHC 31.0 L, RDW 13.6, Plt Count 494 H, MPV 7.8, Neut % (Auto) 43.2, Lymph % (Auto) 47.7, [place] % (Auto) 7.2, Eos % (Auto) 0.1, Baso % (Auto) 1.7, Neut # (Auto) 5.6, Lymph # (Auto) 6.2 H, [place] # (Auto) 0.9, Eos # (Auto) 0.0, Baso # (Auto) 0.2 I & O for Last 24 hours: Intake & Output 02/10/21 02/11/21 02/12/21 02/13/21 11:59 11:59 11:59 11:59 Intake Total 1540 / 1540 2400 / 2400 1440 / 1440 Output Total 3550 / 3550 1200 / 1200 2150 / 2150 Balance -2009 / 1200 / 1200 - / -710 Weight 316 lb 316 lb 2 oz 312 lb 5.015 oz Microbiology Reports for the Last 24 Hours: Microbiology 02/09/21 13:50 Nose - Nasal MRSA Culture - Final - Constitutional obese - *Routine HEENT Exam Head: Present: normocephalic Eye: Present: EOMI, PERRL ENT: Present: mucous membranes moist - *Routine Neck Exam Present: supple. Absent: lymphadenopathy - *Routine Respiratory Exam Present: rhonchi - *Routine Cardiovascular Exam Present: RRR - *Routine Abdominal Exam Present: soft, normoactive bowel sounds. Absent: tenderness - *Routine Extremities Exam Present: normal capillary refill. Absent: cyanosis, clubbing, edema - *Routine Skin Exam Present: warm. Absent: rash - *Routine Neurological Exam Present: alert, oriented X3 - Routine Psychiatric Exam Present: normal affect Assessment and Plan (1) COVID-19 with pulmonary comorbidity Status: Acute Category: Medical Code(s): U07.1 - COVID-19; J98.4 - Other disorders of lung (2) Obesity Status: Acute Qualifiers: Obesity type: due to excess calories Obesity classification: adult class 3 (BMI >= 40) Serious obesity comorbidity presence: with serious comorbidity Body mass index: BMI 50.0-59.9 Qualified Code(s): E66.01 - Morbid (severe) obesity due to excess calories; Z68.43 - Body mass index [BMI] 50.0-59.9, adult Category: Medical Code(s): E66.9 - Obesity, unspecified (3) Schizophrenia Status: Acute Qualifiers: Schizophrenia type: unspecified Qualified Code(s): F20.9 - Schizophrenia, unspecified Category: Medical Code(s): F20.9 - Schizophrenia, unspecified (4) Pickwickian syndrome Status: Acute Category: Medical Code(s): E66.2 - Morbid (severe) obesity with alveolar hypoventilation (5) Respiratory failure with hypoxia and hypercapnia Status: Acute Qualifiers: Chronicity: acute on chronic Qualified Code(s): J96.21 - Acute and chronic respiratory failure with hypoxia; J96.22 - Acute and chronic respiratory failure with hypercapnia Category: Medical Code(s): J96.91 - Respiratory failure, unspecified with hypoxia; J96.92 - Respiratory failure, unspecified with hypercapnia (6) HTN (hypertension) Status: Chronic Qualifiers: Hypertension type: primary hypertension Qualified Code(s): I10 - Essential (primary) hypertension Category: Medical Code(s): I10 - Essential (primary) hypertension (7) Obstructive Sleep Apnea-Hypopnea Syndrome Status: Chronic Category: Medical Code(s): G47.33 - Obstructive sleep apnea (adult) (
--- NOTE | 2021-02-12 15:02 | PC.NURSE ---
This RN made Dr. Espinosa aware that pt's nasal MRSA swab was positive. Pt was started on bactroban per aug. Continues on vapotherm at this time.
[2021-02-13] VITALS (11 sets, daily range): BP systolic 117–141; BP diastolic 68–90; PULSE 78–100; RESP 18–22; TEMP 36.4–37.1; O2SAT 94–98; BMI 49.0
--- NOTE | 2021-02-13 04:23 | PC.NURSE ---
No acute changes t/o night. Pt on 40L vapotherm at 55%. Pt rested well and had no c/o pain. Call torres within reach. Will continue to monitor.
[2021-02-13 07:12] LABS: Basophils # 0.2 K/mm3 (0-0.2); Basophils % 1.4 % (0.1-2.0); Eosinophils % 0.2 % (0.1-12.0); Hematocrit 45.2 % (37.0-47.0); Hemoglobin 14.6 g/dL (12.2-16.2); Lymphocytes # 6.9 K/mm3 (0.7-4.5); Lymphocytes % 46.7 % (10-50); Mean Corpuscular HGB Conc 32.2 g/dL (31.8-35.4); Mean Corpuscular Volume 93.1 fl (81-99); Monocytes % 6.9 % (1.7-9.3); Neutrophils # 6.6 K/mm3 (1.8-7.8); Neutrophils % 44.8 % (37.0-80.0); Platelet Count 544 K/mm3 (142-424); Red Blood Count 4.85 M/mm3 (4.20-5.40); Red Cell Distribution Width 13.2 % (11.5-17.5); White Blood Count 14.8 K/mm3 (4.8-10.8)
--- NOTE | 2021-02-13 09:13 | HMH.ACPN2 ---
Internal Medicine - PN: Subj *Date: 02/14/21 *Time: :21 Interval history: pt with vapotherm but doing ok - resting - no specific c/o Exam Vital signs and Labs for Last 24 Hours: Temp Pulse Resp BP Pulse Ox 98.8 F 90 18 132/79 98 02/13/21 08:00 02/13/21 08:00 02/13/21 08:00 02/13/21 08:00 02/13/21 08:00 Laboratory Results - last 24 hr 02/13/21 06:45: WBC 14.8 H, RBC 4.85, Hgb 14.6, Hct 45.2, MCV 93.1, MCH 30.0, MCHC 32.2, RDW 13.2, Plt Count 544 H, MPV 7.0 L, Neut % (Auto) 44.8, Lymph % (Auto) 46.7, [place] % (Auto) 6.9, Eos % (Auto) 0.2, Baso % (Auto) 1.4, Neut # (Auto) 6.6, Lymph # (Auto) 6.9 H, [place] # (Auto) 1.0, Eos # (Auto) 0.0, Baso # (Auto) 0.2 I & O for Last 24 hours: Intake & Output 02/10/21 02/11/21 02/12/21 02/13/21 11:59 11:59 11:59 11:59 Intake Total 1540 / 1540 2400 / 2400 1440 / 1440 580 / 580 Output Total 3550 / 3550 1200 / 1200 2150 / 2150 2250 / 2250 Balance -2009 / -2009 1200 / 1200 -710 / -710 -1670 / -1670 Weight 316 lb 316 lb 2 oz 312 lb 5.015 oz 312 lb 8 oz Microbiology Reports for the Last 24 Hours: Microbiology 02/07/21 23:55 Blood Blood Culture - Final NO GROWTH AFTER 5 DAYS 02/07/21 23:55 Blood Blood Culture - Final NO GROWTH AFTER 5 DAYS 02/09/21 13:50 Nose - Nasal MRSA Culture - Final - Constitutional no acute distress - *Routine HEENT Exam Head: Present: normocephalic Eye: Present: EOMI, PERRL ENT: Present: mucous membranes dry - *Routine Neck Exam Present: supple. Absent: JVD - *Routine Respiratory Exam Present: decreased breath sounds - *Routine Cardiovascular Exam Present: RRR - *Routine Abdominal Exam Present: soft - *Routine Extremities Exam Absent: calf tenderness - *Routine Skin Exam Present: intact - *Routine Neurological Exam Present: alert, CN II-XII intact. Absent: motor deficit - Routine Psychiatric Exam Present: unable to assess Assessment and Plan (1) COVID-19 with pulmonary comorbidity Status: Acute Category: Medical Code(s): U07.1 - COVID-19; J98.4 - Other disorders of lung (2) Obesity Status: Acute Qualifiers: Obesity type: due to excess calories Obesity classification: adult class 3 (BMI >= 40) Serious obesity comorbidity presence: with serious comorbidity Body mass index: BMI 50.0-59.9 Qualified Code(s): E66.01 - Morbid (severe) obesity due to excess calories; Z68.43 - Body mass index [BMI] 50.0-59.9, adult Category: Medical Code(s): E66.9 - Obesity, unspecified (3) Schizophrenia Status: Acute Qualifiers: Schizophrenia type: unspecified Qualified Code(s): F20.9 - Schizophrenia, unspecified Category: Medical Code(s): F20.9 - Schizophrenia, unspecified (4) Pickwickian syndrome Status: Acute Category: Medical Code(s): E66.2 - Morbid (severe) obesity with alveolar hypoventilation (5) Respiratory failure with hypoxia and hypercapnia Status: Acute Qualifiers: Chronicity: acute on chronic Qualified Code(s): J96.21 - Acute and chronic respiratory failure with hypoxia; J96.22 - Acute and chronic respiratory failure with hypercapnia Category: Medical Code(s): J96.91 - Respiratory failure, unspecified with hypoxia; J96.92 - Respiratory failure, unspecified with hypercapnia (6) HTN (hypertension) Status: Chronic Qualifiers: Hypertension type: primary hypertension Qualified Code(s): I10 - Essential (primary) hypertension Category: Medical Code(s): I10 - Essential (primary) hypertension (7) Obstructive Sleep Apnea-Hypopnea Syndrome Status: Chronic Category: Medical Code(s): G47.33 - Obstructive sleep apnea (adult) (pediatric)
--- NOTE | 2021-02-13 20:00 | PC.NURSE ---
Remains on vapotherm @ 35 L and 55%
[2021-02-14] VITALS (14 sets, daily range): BP systolic 110–146; BP diastolic 67–95; PULSE 84–99; RESP 18–20; TEMP 36.6–37; O2SAT 93–99; BMI 48.9
--- NOTE | 2021-02-14 06:32 | PC.NURSE ---
Patient has had an uneventful night this shift; Still remains on vapotherm 40L 80% FiO2. Shows no s/s of acute distress noted at this time, call light within reach, bed at lowest level for safety; will continue to monitor.
[2021-02-14 08:21] LABS: Basophils # 0.2 K/mm3 (0-0.2); Basophils % 1.4 % (0.1-2.0); Eosinophils % 0.3 % (0.1-12.0); Hemoglobin 14.7 g/dL (12.2-16.2); Lymphocytes # 7.2 K/mm3 (0.7-4.5); Lymphocytes % 45.9 % (10-50); Mean Corpuscular HGB Conc 31.9 g/dL (31.8-35.4); Mean Corpuscular Hemoglobin 29.8 pg (27.0-31.2); Mean Corpuscular Volume 93.6 fl (81-99); Monocytes # 1.1 K/mm3 (0.1-1.0); Monocytes % 7.3 % (1.7-9.3); Neutrophils % 45.1 % (37.0-80.0); Platelet Count 570 K/mm3 (142-424); Red Blood Count 4.92 M/mm3 (4.20-5.40); Red Cell Distribution Width 13.1 % (11.5-17.5); White Blood Count 15.5 K/mm3 (4.8-10.8)
[2021-02-14 08:23] LABS: MANUAL DIFFERENTIAL MANUAL DIFFERENTIAL (MANUAL DIFF)
[2021-02-14 09:14] LABS: Lymphocytes % 59 % (10-50); Monocytes % 6 % (2-9); Neutrophils % 30 % (42-76); Platelet Estimate Moderate Increase; RBC Morphology Normal; Total Cells Counted 100
--- NOTE | 2021-02-14 13:00 | HMH.ACPN2 ---
Internal Medicine - PN: Subj *Date: 02/14/21 *Time: 13:00 Interval history: Patient denies worsening dyspnea cough or chest pain. He remains on Vapotherm, is resting comfortably. Anticipate placement at [facility]. Exam Vital signs and Labs for Last 24 Hours: Temp Pulse Resp BP Pulse Ox 98.6 F 90 18 142/79 H 98 02/14/21 11:06 02/14/21 11:06 02/14/21 11:06 02/14/21 11:06 02/14/21 11:06 Laboratory Results - last 24 hr 02/14/21 07:05: WBC 15.5 H, RBC 4.92, Hgb 14.7, Hct 46.0, MCV 93.6, MCH 29.8, MCHC 31.9, RDW 13.1, Plt Count 570 H, MPV 7.0 L, Neut % (Auto) 45.1, Lymph % (Auto) 45.9, [place] % (Auto) 7.3, Eos % (Auto) 0.3, Baso % (Auto) 1.4, Neut # (Auto) 7.0, Lymph # (Auto) 7.2 H, [place] # (Auto) 1.1 H, Eos # (Auto) 0.0, Baso # (Auto) 0.2, Total Counted 100, Neutrophils % (Manual) 30 L, Band Neutrophils % 5.0, Lymphocytes % (Manual) 59 H, Monocytes % (Manual) 6, Platelet Estimate Moderate increase, RBC Morphology Normal I & O for Last 24 hours: Intake & Output 02/11/21 02/12/21 02/13/21 02/14/21 23:59 23:59 23:59 23:59 Intake Total 2900 / 2900 460 / 460 1200 / 1200 1080 / 1080 Output Total 2875 / 3150 2225 / 2625 1550 / 2075 525 / 525 Balance 25 / -250 -1765 / -2165 -350 / -875 555 / 555 Weight 316 lb 2 oz 312 lb 5.015 oz 312 lb 8 oz 311 lb 6 oz - Constitutional no acute distress, obese, disheveled, cooperative - *Routine HEENT Exam Head: Present: normocephalic Eye: Present: EOMI, PERRL ENT: Present: mucous membranes moist - *Routine Neck Exam Present: supple. Absent: lymphadenopathy - *Routine Respiratory Exam Present: rhonchi. Absent: accessory muscle use, respiratory distress - *Routine Cardiovascular Exam Present: RRR - *Routine Abdominal Exam Present: soft, normoactive bowel sounds. Absent: tenderness - *Routine Extremities Exam Absent: cyanosis, clubbing, edema - *Routine Skin Exam Present: warm. Absent: rash - *Routine Neurological Exam Present: alert, oriented X3 Assessment and Plan (1) COVID-19 with pulmonary comorbidity Status: Acute Category: Medical Code(s): U07.1 - COVID-19; J98.4 - Other disorders of lung (2) Obesity Status: Acute Qualifiers: Obesity type: due to excess calories Obesity classification: adult class 3 (BMI >= 40) Serious obesity comorbidity presence: with serious comorbidity Body mass index: BMI 50.0-59.9 Qualified Code(s): E66.01 - Morbid (severe) obesity due to excess calories; Z68.43 - Body mass index [BMI] 50.0-59.9, adult Category: Medical Code(s): E66.9 - Obesity, unspecified (3) Schizophrenia Status: Acute Qualifiers: Schizophrenia type: unspecified Qualified Code(s): F20.9 - Schizophrenia, unspecified Category: Medical Code(s): F20.9 - Schizophrenia, unspecified (4) Pickwickian syndrome Status: Acute Category: Medical Code(s): E66.2 - Morbid (severe) obesity with alveolar hypoventilation (5) Respiratory failure with hypoxia and hypercapnia Status: Acute Qualifiers: Chronicity: acute on chronic Qualified Code(s): J96.21 - Acute and chronic respiratory failure with hypoxia; J96.22 - Acute and chronic respiratory failure with hypercapnia Category: Medical Code(s): J96.91 - Respiratory failure, unspecified with hypoxia; J96.92 - Respiratory failure, unspecified with hypercapnia (6) HTN (hypertension) Status: Chronic Qualifiers: Hypertension type: primary hypertension Qualified Code(s): I10 - Essential (primary) hypertension Category: Medical Code(s): I10 - Essential (primary) hypertension (7) Obstructive Sleep Apnea-Hypopnea Syndrome Status: Chronic Category: Medical Code(s): G47.33 - Obstructive sleep apnea (adult) (pediatric)
--- NOTE | 2021-02-14 17:46 | PC.NURSE ---
Patient is currently sitting in recliner watching television. Neuro patient is alert and oriented x 4. She tends to be slow to answer questions and expresses a lot of doubts in her own abilities. Patient stated that she didnt think she would be able to clean herself today, even though she ambulates well and feeds herself without issues. Pulm: patient remains on the vapotherm, currently 20L with 50% fiO2. Patient was encouraged to use the incentive spirometer but seems uninterested in doing so. She has had no issues with her oxygenation throughout the shift. Cardiac: Patients vitals have been stable. GI: NO n/v/d. No bm. Appetite excellent. Has eaten 100% of all meals. : patient has a burton catheter. Adequate output. Urine is pale yellow. Skin is c/d/i. Patient was washed today with a sheet change. Oral care completed. Burton care by nurse. [employer]icare again by INSURANCE ASSISTANT. No issues with patient. Will continue to encourage incentive spirometer.
[2021-02-15] VITALS (10 sets, daily range): BP systolic 119–162; BP diastolic 68–98; PULSE 69–107; RESP 18–20; TEMP 36.8–37.1; O2SAT 92–99; BMI 48.6
[2021-02-15 06:56] LABS: Basophils # 0.1 K/mm3 (0-0.2); Basophils % 0.9 % (0.1-2.0); Eosinophils # 0.1 K/mm3 (0.0-0.4); Eosinophils % 0.6 % (0.1-12.0); Hematocrit 45.9 % (37.0-47.0); Hemoglobin 14.2 g/dL (12.2-16.2); Lymphocytes # 7.6 K/mm3 (0.7-4.5); Mean Corpuscular Hemoglobin 29.2 pg (27.0-31.2); Mean Corpuscular Volume 94.3 fl (81-99); Mean Platelet Volume 6.9 fl (7.4-10.4); Monocytes # 0.9 K/mm3 (0.1-1.0); Monocytes % 6.4 % (1.7-9.3); Neutrophils # 5.8 K/mm3 (1.8-7.8); Neutrophils % 40.2 % (37.0-80.0); Platelet Count 544 K/mm3 (142-424); Red Blood Count 4.87 M/mm3 (4.20-5.40); Red Cell Distribution Width 13.1 % (11.5-17.5); White Blood Count 14.5 K/mm3 (4.8-10.8)
--- NOTE | 2021-02-15 06:58 | PC.NURSE ---
No s/s of acute distress noted, call light in reach, bed at lowest level for safety; will continue to monitor.
[2021-02-15 07:23] LABS: MANUAL DIFFERENTIAL MANUAL DIFFERENTIAL (MANUAL DIFF)
--- NOTE | 2021-02-15 09:31 | HMH.PULMPN ---
Internal Medicine - PN: Subj *Date: 02/15/21 *Time: 14:40 Interval history: No acute respiratory events overnight Exam - Constitutional Constitutional:: Present: no acute distress, comfortable - HENMT Exam HENMT: Present: normocephalic, atraumatic - Eye Exam Eyes:: Present: normal appearance both eyes and related structures - Neck Exam Neck:: Present: normal visual inspection - Respiratory Exam Respiratory:: Present: able to speak in complete sentences, decreased breath sounds - Cardiovascular Exam Cardiac:: Present: S1, S2 - GI Exam GI:: Present: soft, obese - Skin Exam Skin: Present: warm, no rash - Neurological Exam Neurological: Present: alert, normal cognition - Extremities Exam Extremities: Present: no cyanosis, no clubbing - Psychiatric Exam Psychiatric: Present: flat affect Assessment and Plan (1) COVID-19 with pulmonary comorbidity Status: Acute Category: Medical Code(s): U07.1 - COVID-19; J98.4 - Other disorders of lung (2) Obesity Status: Acute Qualifiers: Obesity type: due to excess calories Obesity classification: adult class 3 (BMI >= 40) Serious obesity comorbidity presence: with serious comorbidity Body mass index: BMI 50.0-59.9 Qualified Code(s): E66.01 - Morbid (severe) obesity due to excess calories; Z68.43 - Body mass index [BMI] 50.0-59.9, adult Category: Medical Code(s): E66.9 - Obesity, unspecified (3) Schizophrenia Status: Acute Qualifiers: Schizophrenia type: unspecified Qualified Code(s): F20.9 - Schizophrenia, unspecified Category: Medical Code(s): F20.9 - Schizophrenia, unspecified (4) Pickwickian syndrome Status: Acute Category: Medical Code(s): E66.2 - Morbid (severe) obesity with alveolar hypoventilation (5) Respiratory failure with hypoxia and hypercapnia Status: Acute Qualifiers: Chronicity: acute on chronic Qualified Code(s): J96.21 - Acute and chronic respiratory failure with hypoxia; J96.22 - Acute and chronic respiratory failure with hypercapnia Category: Medical Code(s): J96.91 - Respiratory failure, unspecified with hypoxia; J96.92 - Respiratory failure, unspecified with hypercapnia (6) HTN (hypertension) Status: Chronic Qualifiers: Hypertension type: primary hypertension Qualified Code(s): I10 - Essential (primary) hypertension Category: Medical Code(s): I10 - Essential (primary) hypertension (7) Obstructive Sleep Apnea-Hypopnea Syndrome Status: Chronic Category: Medical Code(s): G47.33 - Obstructive sleep apnea (adult) (pediatric) - Assessment and plan all Dx Assessment and Plan for all problems:: #Acute hypoxic respiratory failure: #COVID-19 pneumonia: 40-year-old female morbidly obese, history of sleep apnea with AHI 108 - not compliant with BiPAP presents with worsening respiratory distress and found to be COVID-19 positive. CTA on admission did not show any evidence of pulmonary embolism showed bilateral patchy groundglass opacities along with concerning lymphadenopathy. CRP elevated at 87.4 Blood cultures no growth 48 hours. Nasal MRSA PCR positive Completed 5-day course of levofloxacin Patient high flow requirements continue to improve, this morning wean to nasal cannula 6 L saturations maintained at 88% and above. Plan: -Continue nasal cannula oxygen supplementation to maintain O2 saturation goal of 88% and above. -Continue awake proning protocol -Continue remdesivir and dexamethasone 6 mg dailyx 10 days or untill discharge along with [id number] days -DuoNebs every 6 scheduled along with budesonide every 12 scheduled #Thank for involving pulmonary in this patient care. We will continue to follow. # Given patient's acute clinical condition, will follow with outpatient CT chest to determine etiology and for the need for EBUS FNA for the concerning mediastinal and hilar lymphadenopathy.
[2021-02-15 09:51] LABS: Hypochromasia 1+; Lymphocytes % 55 % (10-50); Microcytosis 1+; Monocytes % 16 % (2-9); Neutrophils % 27 % (42-76); Platelet Estimate Normal; Total Cells Counted 100
--- NOTE | 2021-02-15 13:07 | HMH.ACPN2 ---
Internal Medicine - PN: Subj *Date: 02/15/21 *Time: 08:45 Interval history: pt states she is feeling better, vapertherm in place Exam Vital signs and Labs for Last 24 Hours: Temp Pulse Resp BP Pulse Ox 98.2 F 90 18 132/92 H 94 L 02/15/21 10:52 02/15/21 10:52 02/15/21 10:52 02/15/21 10:52 02/15/21 10:52 Laboratory Results - last 24 hr 02/15/21 06:27: WBC 14.5 H, RBC 4.87, Hgb 14.2, Hct 45.9, MCV 94.3, MCH 29.2, MCHC 31.0 L, RDW 13.1, Plt Count 544 H, MPV 6.9 L, Neut % (Auto) 40.2, Lymph % (Auto) 52.0 H, [place] % (Auto) 6.4, Eos % (Auto) 0.6, Baso % (Auto) 0.9, Neut # (Auto) 5.8, Lymph # (Auto) 7.6 H, [place] # (Auto) 0.9, Eos # (Auto) 0.1, Baso # (Auto) 0.1, Total Counted 100, Neutrophils % (Manual) 27 L, Lymphocytes % (Manual) 55 H, Monocytes % (Manual) 16 H, Blast Cells % 2.0, Platelet Estimate Normal, Hypochromasia 1+, Microcytosis 1+ I & O for Last 24 hours: Intake & Output 02/13/21 02/14/21 02/15/21 02/16/21 11:59 11:59 11:59 11:59 Intake Total 580 / 580 1680 / 1680 1200 / 1200 480 / 480 Output Total 2250 / 2250 1675 / 1675 900 / 900 Balance -1670 / -1670 5 / 5 300 / 300 480 / 480 Weight 312 lb 8 oz 311 lb 6 oz 310 lb 2 oz - Constitutional no acute distress, obese - *Routine HEENT Exam Head: Present: normocephalic Eye: Present: PERRL ENT: Present: mucous membranes moist - *Routine Neck Exam Present: supple. Absent: lymphadenopathy - *Routine Respiratory Exam Present: CTA bilaterally - *Routine Cardiovascular Exam Present: RRR - *Routine Abdominal Exam Present: soft, normoactive bowel sounds. Absent: tenderness - *Routine Extremities Exam Present: normal capillary refill. Absent: cyanosis, clubbing, edema - *Routine Skin Exam Present: warm. Absent: rash - *Routine Neurological Exam Present: alert, oriented X3 - Routine Psychiatric Exam Present: normal affect Assessment and Plan (1) COVID-19 with pulmonary comorbidity Status: Acute Category: Medical Code(s): U07.1 - COVID-19; J98.4 - Other disorders of lung (2) Obesity Status: Acute Qualifiers: Obesity type: due to excess calories Obesity classification: adult class 3 (BMI >= 40) Serious obesity comorbidity presence: with serious comorbidity Body mass index: BMI 50.0-59.9 Qualified Code(s): E66.01 - Morbid (severe) obesity due to excess calories; Z68.43 - Body mass index [BMI] 50.0-59.9, adult Category: Medical Code(s): E66.9 - Obesity, unspecified (3) Schizophrenia Status: Acute Qualifiers: Schizophrenia type: unspecified Qualified Code(s): F20.9 - Schizophrenia, unspecified Category: Medical Code(s): F20.9 - Schizophrenia, unspecified (4) Pickwickian syndrome Status: Acute Category: Medical Code(s): E66.2 - Morbid (severe) obesity with alveolar hypoventilation (5) Respiratory failure with hypoxia and hypercapnia Status: Acute Qualifiers: Chronicity: acute on chronic Qualified Code(s): J96.21 - Acute and chronic respiratory failure with hypoxia; J96.22 - Acute and chronic respiratory failure with hypercapnia Category: Medical Code(s): J96.91 - Respiratory failure, unspecified with hypoxia; J96.92 - Respiratory failure, unspecified with hypercapnia (6) HTN (hypertension) Status: Chronic Qualifiers: Hypertension type: primary hypertension Qualified Code(s): I10 - Essential (primary) hypertension Category: Medical Code(s): I10 - Essential (primary) hypertension (7) Obstructive Sleep Apnea-Hypopnea Syndrome Status: Chronic Category: Medical Code(s): G47.33 - Obstructive sleep apnea (adult) (pediatric) - Assessment and plan all Dx Assessment and Plan for all problems:: rounded with dr rain all orders per dr koffi saenz
[2021-02-15 13:36] LABS: Basophils # 0.1 K/mm3 (0-0.2); Basophils % 0.9 % (0.1-2.0); Eosinophils # 0.1 K/mm3 (0.0-0.4); Eosinophils % 0.3 % (0.1-12.0); Hematocrit 48.2 % (37.0-47.0); Hemoglobin 15.2 g/dL (12.2-16.2); Lymphocytes # 3.5 K/mm3 (0.7-4.5); Lymphocytes % 26.4 % (10-50); Mean Corpuscular HGB Conc 31.5 g/dL (31.8-35.4); Mean Corpuscular Hemoglobin 29.8 pg (27.0-31.2); Mean Corpuscular Volume 94.6 fl (81-99); Monocytes # 0.4 K/mm3 (0.1-1.0); Monocytes % 2.8 % (1.7-9.3); Neutrophils # 9.3 K/mm3 (1.8-7.8); Neutrophils % 69.6 % (37.0-80.0); Platelet Count 557 K/mm3 (142-424); Red Blood Count 5.09 M/mm3 (4.20-5.40); Red Cell Distribution Width 13.1 % (11.5-17.5); White Blood Count 13.4 K/mm3 (4.8-10.8)
[2021-02-15 13:39] LABS: Chloride 94 mmol/L (98-107)
[2021-02-15 13:40] LABS: Potassium 4.9 mmoL/L (3.5-5.1); Sodium 137 mmol/L (136-145)
[2021-02-15 13:42] LABS: Blood Urea Nitrogen 20 mg/dl (7-17); Creatinine Clearance Estimated 102 mL/min (50-200); Estimated Glomerular Filt Rate 94 ml/min (>60); GFR (African American) 113 ML/MIN (>60)
[2021-02-15 13:43] LABS: Anion Gap 14.9 mEq/L (5-15); Carbon Dioxide 33 mmol/L (22.0-30.0); Glucose 188 mg/dl (74-100)
--- NOTE | 2021-02-15 15:23 | PC.NURSE ---
PT IS SITTING UP IN THE CHAIR. NO COMPLAINTS OF DISCOMFORT. O2 SATURATION MAINTAINING 91-93% ON 6 L NC. EATING AND DRINKING WELL. PT REFUSED BATH THIS SHIFT. LUNG SOUNDS DIMINISHED. ABDOMEN SOFT/LARGE/NON TENDER WITH ACTIVE BOWEL SOUNDS. PT COULD NOT REMEMBER WHEN HER LAST BOWEL MOVEMENT WAS. WILL CONTINUE TO MONITOR.
[2021-02-16] VITALS: BP 131/81; PULSE 103; RESP 18; TEMP 36.6; O2SAT 97
[2021-02-16 02:24] VITALS: O2SAT 95
[2021-02-16 03:59] VITALS: BP 153/91; PULSE 93; RESP 16; TEMP 36.8; O2SAT 98
[2021-02-16 04:56] VITALS: BMI 49.5
--- NOTE | 2021-02-16 05:54 | PC.NURSE ---
Pt rested well t/o the night Respiratory decreased oxygen to 4L on nasal canula, pt has tolerated well. Pt has had no c/o SOA, n/v/d, or pain. No acute distress noted at this time. Call torres within reach, will continue to monitor.
[2021-02-16 06:08] VITALS: PULSE 87; PULSE 92; O2SAT 98
[2021-02-16 07:08] LABS: Anion Gap 12.9 mEq/L (5-15); Blood Urea Nitrogen 17 mg/dl (7-17); Carbon Dioxide 34 mmol/L (22.0-30.0); Chloride 93 mmol/L (98-107); Creatinine Clearance Estimated 143 mL/min (50-200); Estimated Glomerular Filt Rate 138 ml/min (>60); GFR (African American) 167 ML/MIN (>60); Glucose 110 mg/dl (74-100); Potassium 4.9 mmoL/L (3.5-5.1); Sodium 135 mmol/L (136-145)
[2021-02-16 07:13] LABS: Basophils # 0.1 K/mm3 (0-0.2); Basophils % 0.7 % (0.1-2.0); Eosinophils % 0.3 % (0.1-12.0); Hematocrit 45.5 % (37.0-47.0); Hemoglobin 14.5 g/dL (12.2-16.2); Lymphocytes # 4.8 K/mm3 (0.7-4.5); Lymphocytes % 35.6 % (10-50); Mean Corpuscular Hemoglobin 29.6 pg (27.0-31.2); Mean Corpuscular Volume 92.6 fl (81-99); Mean Platelet Volume 7.2 fl (7.4-10.4); Monocytes % 7.5 % (1.7-9.3); Neutrophils # 7.6 K/mm3 (1.8-7.8); Platelet Count 483 K/mm3 (142-424); Red Blood Count 4.91 M/mm3 (4.20-5.40); Red Cell Distribution Width 12.9 % (11.5-17.5); White Blood Count 13.6 K/mm3 (4.8-10.8)
[2021-02-16 08:00] VITALS: BP 117/91; PULSE 103; RESP 18; TEMP 36.8; O2SAT 95
--- NOTE | 2021-02-16 08:53 | HMH.DCSUM ---
General - General Admission date:: 02/08/21 Discharge date: 02/16/21 HPI HPI: this patient is from local [facility] - [facility]- pt with recent dx of covid-19 and was sent for eval of sob with dec o2 sat and dec mental status - pt was seen in the ed with abn abg and cxr with positive covid-19 despite being vaccinated - pt was admitted at this time on vapotherm Hospital Course Hospital Course: 40-year-old female patient admitted from local [facility] with recent diagnosis of COVID-19, was sent for eval of shortness of breath with decreased oxygen saturation and decreased mental status. Patient with abnormal ABG and COVID-19 chest x-ray was admitted to [facility] and placed on Vapotherm. Patient was vaccinated Initially she was admitted to the floor with Vapotherm 100% at 20 L, she maintained this for several days then was increased to 40 L Vapotherm 100% for several days. After this her oxgen requirements were gradually decreased and eventually weaned 4 L to 6 L per nasal cannula and her current oxygenation level is 94% on 3 L per nasal cannula. She will be discharged on 3 L. 02/07/21 CXR: FINDINGS: Lungs: Extensive bilateral airspace disease/pneumonia. Low lung volumes. Pleural spaces: Unremarkable. No pleural effusion. No pneumothorax. Heart/Mediastinum: Cardiomegaly. Bones/joints: Unremarkable. IMPRESSION: Extensive bilateral airspace disease concerning for pneumonia. Electronically signed by Kali Kendall MD 02/08/21 Chest CTA: FINDINGS: Pulmonary arteries: Pulmonary artery valuation limited in the lung bases from respiratory motion. Pulmonary artery evaluation of fair technical quality but no pulmonary artery embolism identified. Aorta: No thoracic aortic aneurysm, dissection or other acute thoracic aortic injury. Lungs: Patchy subpleural predominant ground-glass and linear pulmonary opacities are concerning for atypical infection, likely moderate changes of COVID-19. Low lung volumes. Pleural spaces: Unremarkable. No pneumothorax. No pleural effusion. Heart: Unremarkable. No cardiomegaly. No pericardial effusion. Lymph nodes: Unexpectedly prominent mediastinal and hilar adenopathy includes a 14 x 17 mm prevascular lymph node with lymphoid tissue encircling the bilateral lower lobe pulmonary arteries. This is more than is typically expected for viral pneumonia and is a potential marker of lymphoproliferative disorder or malignancy. Liver: Hepatic steatosis is evident. Bones/joints: Unremarkable. No acute fracture. Soft tissues: Unremarkable. IMPRESSION: 1. No thoracic aortic aneurysm, dissection or other acute thoracic aortic injury. 2. No segmental or larger pulmonary artery embolism identified. Mildly limited quality examination. 3. Patchy subpleural predominant ground-glass and linear pulmonary opacities are concerning for atypical infection, likely moderate changes of COVID-19. 4. Unexpectedly prominent mediastinal and hilar adenopathy includes a 14 x 17 mm prevascular lymph node with lymphoid tissue encircling the bilateral lower lobe pulmonary arteries. This is more than is typically expected for viral pneumonia and is a potential marker of lymphoproliferative disorder or malignancy. Consider followup three-month CT chest to further define. Electronically signed by Dc Fortune MD Pulmonary has seen and recommends: Plan: -Continue nasal cannula oxygen supplementation to maintain O2 saturation goal of 88% and above. -Continue awake proning protocol -Continue remdesivir and dexamethasone 6 mg dailyx 10 days or untill discharge along with [id number] days -DuoNebs every 6 scheduled along with budesonide every 12 scheduled #Thank for involving pulmonary in this patient care. We will continue to follow. # Given patient's acute clinical condition, will follow with outpatient CT chest to determine etiology and for the need for EBUS FN
--- NOTE | 2021-02-16 10:47 | HMH.PULMPN ---
Internal Medicine - PN: Subj *Date: 02/16/21 *Time: 10:47 Interval history: No acute respiratory events overnight. Patient successfully weaned to nasal cannula remained stable. Exam - Constitutional Constitutional:: Present: no acute distress, comfortable - HENMT Exam HENMT: Present: normocephalic, atraumatic - Eye Exam Eyes:: Present: normal appearance both eyes and related structures - Neck Exam Neck:: Present: normal visual inspection - Respiratory Exam Respiratory:: Present: able to speak in complete sentences, no respiratory distress, decreased breath sounds - Cardiovascular Exam Cardiac:: Present: S1, S2 - GI Exam GI:: Present: soft, obese - Skin Exam Skin: Present: warm, no rash - Neurological Exam Neurological: Present: alert, awake Assessment and Plan (1) COVID-19 with pulmonary comorbidity Status: Acute Category: Medical Code(s): U07.1 - COVID-19; J98.4 - Other disorders of lung (2) Obesity Status: Acute Qualifiers: Obesity type: due to excess calories Obesity classification: adult class 3 (BMI >= 40) Serious obesity comorbidity presence: with serious comorbidity Body mass index: BMI 50.0-59.9 Qualified Code(s): E66.01 - Morbid (severe) obesity due to excess calories; Z68.43 - Body mass index [BMI] 50.0-59.9, adult Category: Medical Code(s): E66.9 - Obesity, unspecified (3) Schizophrenia Status: Acute Qualifiers: Schizophrenia type: unspecified Qualified Code(s): F20.9 - Schizophrenia, unspecified Category: Medical Code(s): F20.9 - Schizophrenia, unspecified (4) Pickwickian syndrome Status: Acute Category: Medical Code(s): E66.2 - Morbid (severe) obesity with alveolar hypoventilation (5) Respiratory failure with hypoxia and hypercapnia Status: Acute Qualifiers: Chronicity: acute on chronic Qualified Code(s): J96.21 - Acute and chronic respiratory failure with hypoxia; J96.22 - Acute and chronic respiratory failure with hypercapnia Category: Medical Code(s): J96.91 - Respiratory failure, unspecified with hypoxia; J96.92 - Respiratory failure, unspecified with hypercapnia (6) HTN (hypertension) Status: Chronic Qualifiers: Hypertension type: primary hypertension Qualified Code(s): I10 - Essential (primary) hypertension Category: Medical Code(s): I10 - Essential (primary) hypertension (7) Obstructive Sleep Apnea-Hypopnea Syndrome Status: Chronic Category: Medical Code(s): G47.33 - Obstructive sleep apnea (adult) (pediatric) - Assessment and plan all Dx Assessment and Plan for all problems:: #COVID-19 pneumonia: 40-year-old female morbidly obese, history of sleep apnea with AHI 108 - not compliant with BiPAP presents with worsening respiratory distress and found to be COVID-19 positive. CTA on admission did not show any evidence of pulmonary embolism showed bilateral patchy groundglass opacities along with concerning lymphadenopathy. CRP elevated at 87.4 Blood cultures no growth 48 hours. Nasal MRSA PCR positive Completed 5-day course of levofloxacin Patient high flow requirements continue to improve, this morning wean to nasal cannula 6 L saturations maintained at 88% and above. Plan: -Continue nasal cannula oxygen supplementation to maintain O2 saturation goal of 88% and above. -Continue remdesivir and dexamethasone 6 mg dailyx 10 days or untill discharge -Continue [id number] days -DuoNebs every 6 scheduled along with budesonide every 12 scheduled, transition to home inhaler therapy on discharge #Thank for involving pulmonary in this patient care. We will follow the patient in pulmonary clinic in 4 to 6 weeks with a repeat CT chest without contrast # Given patient's acute clinical condition, will follow with outpatient CT chest to determine etiology and for the need for EBUS FNA for the concerning mediastinal and hilar lymphadenopathy.
== END 2021-02-16 12:00 | DRG 177 ==
LOC: ER 23:56 → ICU 02-08 04:02 → 2ND 02-09 17:55
PROVIDERS: Nurse Practitioner Family; Admitting Provider Emergency Medicine; Emergency Provider Emergency Medicine; PCP Emergency Medicine; Visit Provider Emergency Medicine
DX: U07.1 COVID-19 (principal); J12.82 Pneumonia due to coronavirus disease 2019; J96.21 Acute and chronic respiratory failure with hypoxia; J96.22 Acute and chronic respiratory failure with hypercapnia; E66.2 Morbid (severe) obesity with alveolar hypoventilation; Z68.43 Body mass index [BMI] 50.0-59.9, adult; I10 Essential (primary) hypertension; F20.9 Schizophrenia, unspecified; G47.33 Obstructive sleep apnea (adult) (pediatric); Z85.9 Personal history of malignant neoplasm, unspecified; F32.9 Major depressive disorder, single episode, unspecified; F41.9 Anxiety disorder, unspecified
CPT/HCPCS: 36415; 71045; 71275; 80048; 80053; 80076; 80164; 81001; 82803; 83605; 83735; 84145; 84484; 85007; 85025; 85651; 86140; 87040; 87081; 93005; 94640; 94660; 94760; 94761; 96365; 96367; 96375; 99285; J1956; Q9967; U0003

== ENCOUNTER → 2021-03-31 08:34 | Outpatient (CLI) | payer MEDICARE, OTHER, SELFPAY ==
--- NOTE | 2021-03-31 08:45 | CT_ITS ---
PROCEDURE: CT CHEST WO CON CLINICAL INDICATION: pulmonary nodule Mediastinal adenopathy COMPARISON: CT CT ANGIO CHEST PE PROTOCOL from 02/08/2021 TECHNIQUE: Axial images obtained with sagittal and coronal reformats. All CT scans at the facility use one or more dose reduction, viz: automated exposure control, ma/kV adjustment per patient size (including targeted exams where dose is matched to indication, i.e. head), or iterative reconstruction technique. FINDINGS: HEART AND MEDIASTINAL STRUCTURES: There is mild generalized cardiomegaly. There is borderline aneurysmal dilatation of the ascending aorta. There is no coronary artery calcification. LUNGS AND PLEURAL SPACES: There has been interval clearing of the diffuse bilateral patchy ill-defined pneumonic infiltrate seen on the previous study and the lung villagran are clear at this time. There is a calcified granuloma anterior segment right upper lobe. There are slightly enlarged nodes in the prevascular space of the superior mediastinum. There are calcified right hilar nodes. There is no abnormal hilar lymphadenopathy. There is no pleural fluid. BONY STRUCTURES: No acute bony abnormalities apparent. There are mild multilevel degenerate changes of the thoracic spine. UPPER ABDOMEN: Post cholecystectomy ADDITIONAL FINDINGS: No other significant abnormalities. IMPRESSION: 1. Interval resolution of the diffuse bilateral ill-defined pneumonic infiltrates 1. Calcified granuloma right upper lobe, there are no suspicious noncalcified pulmonary nodules. 2. Borderline adenopathy pre-vascular space of the superior mediastinum Dictated by: Dr. Scott Fu MD 03/31/2021 09:26 Dr. Scott Fu MD in [facility] 03/31/2021 09:26
[2021-03-31 09:45] VITALS: PULSE 102; PULSE 98
== END ==
PROVIDERS: PCP Emergency Medicine; Visit Provider Internal Medicine Pulmonary Disease
DX: J96.91 Respiratory failure, unspecified with hypoxia (principal); J96.92 Respiratory failure, unspecified with hypercapnia
CPT/HCPCS: 71250; 94060; 94618; 94640

== ENCOUNTER → 2021-08-19 13:44 | Outpatient (CLI) | payer MEDICARE, MEDICAID, SELFPAY | PROVIDERS: Visit Provider Obstetrics & Gynecology | DX: N89.8 Other specified noninflammatory disorders of vagina (principal) | CPT/HCPCS: 87210 ==

== ENCOUNTER → 2022-04-07 14:58 | Outpatient (CLI) | payer MEDICARE, OTHER, MEDICAID, SELFPAY ==
--- NOTE | 2022-04-07 14:59 | CT_ITS ---
FINAL REPORT TECHNIQUE: Axial images were obtained from the lung apex to the mid abdomen by computed tomography. Coronal reformatted images were obtained. This study was performed with techniques to keep radiation doses as low as reasonably achievable, (ALARA). Individualized dose reduction techniques using automated exposure control or adjustment of mA and/or kV according to the patient''s size were employed. CLINICAL HISTORY: 12-month follow-up COMPARISON: 03/31/2021 FINDINGS: There is no axillary adenopathy. There is no hilar adenopathy. There is been partial improvement in mediastinal adenopathy. The largest prevascular node measures 10 mm and was 14 mm. There is no new mediastinal mass identified. Heart size is normal. There is no pericardial or pleural effusion. Limited images of the upper abdomen demonstrate postoperative changes from cholecystectomy. There is mild right renal scarring. There is a calcified granuloma in the right upper lobe. No new pulmonary abnormality is identified. IMPRESSION: Partial improvement in mediastinal adenopathy. No new pulmonary abnormality identified. Reviewed, Interpreted and Dictated by Yevgeniy Harris III, MD Transcribed by Danita Lim Authenticated and . [facility]
== END ==
PROVIDERS: PCP Emergency Medicine; Visit Provider Internal Medicine Pulmonary Disease
DX: R59.9 Enlarged lymph nodes, unspecified (principal); R91.8 Other nonspecific abnormal finding of lung field
CPT/HCPCS: 71250

== ENCOUNTER 2024-05-06 18:16 | Emergency (ER) | payer MEDICARE, OTHER, SELFPAY ==
--- NOTE | 2024-05-06 18:20 | ED_ITS ---
Discharge Plan Disposition Patient Disposition: Home, Self-Care Condition: Good Prescriptions Prescriptions: New ondansetron 4 mg tablet,disintegrating 4 mg PO Q6H PRN (Reason: nausea and vomiting) Qty: 10 0RF No Action loperamide 2 mg capsule 2 mg PO Q3HP PRN (Reason: Diarrhea) dextromethorphan-guaifenesin [Robafen DM] 10-100 mg/5 mL syrup 10 ml PO Q4-6H PRN (Reason: Cough) benztropine 0.5 mg tablet 0.5 mg PO BID divalproex [Depakote] 500 mg tablet,delayed release (DR/EC) 500 mg PO DAILY ferrous sulfate 325 mg (65 mg iron) tablet 325 mg PO DAILY fluoxetine [Prozac] 40 mg capsule 40 mg PO DAILY folic acid 1 mg tablet 1 mg PO DAILY olanzapine [Zyprexa] 20 mg tablet 15 mg PO DAILY Prilosec OTC 20 mg tablet,delayed release (DR/EC) 20 mg PO DAILY ipratropium-albuterol 0.5 mg-3 mg(2.5 mg base)/3 mL solution for nebulization 3 ml INHALATION QID PRN (Reason: shortness of breath or wheezing) 90 Days Qty: 270 3RF clindamycin HCl 300 mg capsule 300 mg PO BID 7 Days Qty: 14 0RF haloperidol 10 mg tablet 10 mg PO DAILY metformin 500 mg tablet 500 mg PO BID albuterol sulfate 90 mcg/actuation HFA aerosol inhaler 1 inh INHALATION Q6H PRN (Reason: shortness of breath or wheezing) 90 Days Qty: 8.5 3RF medroxyprogesterone [Depo-Provera] 150 mg/mL suspension 150 mg IM [id number] Qty: 1 3RF phentermine [Adipex-P] 37.5 mg tablet 37.5 mg PO DAILY Qty: 30 0RF Rx Instructions: must administer 30 minutes before or 1-2 hours after breakfast BMI 50.0 divalproex 500 MG tablet,delayed release (DR/EC) 1,500 mg PO HS bisoprolol fumarate 5 MG tablet 5 mg PO DAILY budesonide 0.5 MG/2 ML suspension for nebulization 0.5 mg IH BIDRT Qty: 1 0RF Activity Restrictions/Add. Instructions Additional Instructions/Restrictions: You were evaluated in the emergency department today. At this time, labs and imaging are reassuring. We feel you likely have a viral syndrome causing nausea, vomiting, diarrhea, and fever. Please crab picker your prescription for Zofran and take as needed for nausea and vomiting. Take Tylenol and ibuprofen every 4-6 hours at home as needed for pain/fever. Orally hydrate is much as possible. Follow-up closely with your primary care provider. Return to the emergency department for new or worsening symptoms Clinical Impressions Clinical Impression: Nausea vomiting and diarrhea, Fever Instructions Patient Instructions: DI for Diarrhea and Traveler's Diarrhea -- Adult, DI for Nausea -- Adult Print Language Print Language: Icelandic Discharge ED Provider: Patrica Govea General Adult HPI <KASIA Patel - Last Filed: 05/06/24 20:53> General Chief complaint: Nausea/Vomiting/Diarrhea Stated complaint: nausea, vomiting, diarrhea Time Seen by Provider: 05/06/24 18:20 History of Present Illness HPI narrative: Patient presents for evaluation of nausea vomiting and possibly diarrhea. Patient reports that she had an episode of vomiting this morning none since has vomited and had loose stool. This is all self-reported and no witnessed events she lives at [facility]. Patient is a difficult historian as at baseline she has schizophrenia and I do not know what her functional baseline is. Currently she denies chest pain shortness of breath fever chills hemoptysis hematochezia melena hematemesis but does endorse that she does have belly pain. Related Data Home Medications ?Medication ?Instructions ?Recorded ?Confirmed benztropine 0.5 mg tablet 0.5 mg PO BID Tremors 06/28/17 08/19/21 dextromethorphan-guaifenesin 10 10 ml PO Q4-6H PRN Cough 06/28/17 08/19/21 mg-100 mg/5 mL oral syrup (Robafen DM) divalproex 500 mg tablet,delayed 500 mg PO DAILY Tremors 06/28/17 08/19/21 release (Depakote) ferrous sulfate 325 mg (65 mg 325 mg PO DAILY Supplement 06/28/17 08/19/21 iron) tablet fluoxetine 40 mg capsule (Prozac) 40 mg PO DAILY Anxiety 06/28/17 08/19/21 folic acid 1 mg tablet 1 mg PO DAILY Diet supplement 06/28/17 08/19/21 loperamide 2 mg capsule 2 mg PO Q3HP PRN Diarrhea 06/28/17 08/19/21 olanzapine 20 mg tablet (Zyprexa) 15 mg PO DAILY mood 06/28/17 08/19/21 divalproex 500 mg tablet,delayed 1,500 mg PO HS Tremors 07/28/18 08/19/21 release omeprazole magnesium 20 mg 20 mg PO DAILY acid reflux 07/22/19 08/19/21 tablet,delayed release (Prilosec OTC) haloperidol 10 mg tablet 10 mg PO DAILY mood 01/20/21 08/19/21 metformin 500 mg tablet 500 mg PO BID Diabetes 01/20/21 08/19/21 bisoprolol fumarate 5 mg tablet 5 mg PO DAILY High blood pressure 02/08/21 08/19/21 Previous Rx's ?Medication ?Instructions ?Recorded budesonide 0.5 mg/2 mL suspension 0.5 mg (2 mL) IH BIDRT ##1 02/16/21 for nebulization albuterol sulfate 90 mcg/actuation 1 inh inhalation Q6H PRN shortness 03/22/21 aerosol inhaler of breath or wheezing 90 days #8.5 grams ipratropium 0.5 mg-albuterol 3 mg 3 ml inhalation QID PRN shortness 06/15/21 (2.5 mg base)/3 mL nebulization of breath or wheezing 90 days #270 soln mL clindamycin HCl 300 mg capsule 300 mg PO BID 7 days #14 caps 08/19/21 medroxyprogesterone 150 mg/mL 150 mg IM [id number] control 07/04/22 intramuscular suspension #1 mL (Depo-Provera) phentermine 37.5 mg tablet 37.5 mg PO DAILY Appetite 05/08/23 (Adipex-P) suppressant #30 tabs ondansetron 4 mg disintegrating 4 mg PO Q6H PRN nausea and 05/06/24 tablet vomiting #10 tabs Allergies Allergy/AdvReac Type Severity Reaction Status Date / Time No Known Allergies Allergy Verified 08/19/21 11:43 [facility] <KASIA Patel - Last Filed: 05/06/24 20:53> [facility] Disclaimer: The information contained in this section may have been updated after the patient was seen, as this information can be updated by other users. Medical History (Updated 05/06/24 @ 21:41 by Patrica Govea DO) Mediastinal lymphadenopathy Hilar lymphadenopathy Restrictive lung disease Dyspnea on exertion History of 2019 novel coronavirus disease (COVID-19) Shortness of breath Surgical History (Updated 05/31/22 @ 09:24 by Renetta Doyle RT) Hx of cholecystectomy Social History Smoking Status: Never smoker alcohol intake: never counseling provided: provider counseling substance use type: denies use current occupational status: unemployed Travel in the last 8 weeks: None household members: caregiver housing: assisted living facility current occupational exposures/hazards: No caffeine: Yes Other Medical History Have you received the Flu Vaccine for this season: No Have you received the Pneumonia Vaccine: No <KASIA Patel - Last Filed: 05/06/24 20:53> ROS Obtained: Yes Systems reviewed as appropriate & no additional complaints except as documented Physical Exam <KASIA Patel - Last Filed: 05/06/24 20:53> General General appearance: alert and in no apparent distress Respiratory Respiratory exam: Present normal lung sounds bilaterally Cardiovascular Cardiovascular exam: Present regular rate Neurological Exam Neurological exam: Present alert and oriented X3 Medical Decision Making <KASIA Patel - Last Filed: 05/06/24 20:53> Medical Records Medical records reviewed: Yes I reviewed the patient's medical records. Screening: Per USPSTF and CDC recommendations, given the prevalence of disease in our region, it is our hospital?s policy to screen for HIV and viral Hepatitis for all patients aged 18 and over and those with ongoing risk factors. [place] Inquiry Pt receiving controlled substance: No Vital Signs: 05/06/24 18:24 05/06/24 19:55 05/06/24 21:46 Temperature 98.7 F 102.8 F H Temperature Source Oral Oral Pulse Rate 92 H Pulse Rate [Right Radial] 99 H Respiratory Rate 20 Blood Pressure 145/73 H Blood Pressure [Right Arm] 170/87 H Blood Pressure Mean 88 Blood Pressure Mean [Right Arm] 114 Blood Pressure Source Blood Pressure Position 02 Sat by Pulse Oximetry 94 L 95 Oxygen Delivery Method Nasal Cannula Room Air Oxygen Flow Rate (LPM) 2 05/06/24 22:01 05/06/24 22:31 05/06/24 22:34 Temperature 98.8 F Temperature Source Oral Pulse Rate 94 H 88 88 Pulse Rate [Right Radial] Respiratory Rate 18 Blood Pressure 124/68 107/60 L 107/60 L Blood Pressure [Right Arm] Blood Pressure Mean 82 75 Blood Pressure Mean [Right Arm] Blood Pressure Source Automatic Cuff Blood Pressure Position Supine 02 Sat by Pulse Oximetry 92 L 93 L Oxygen Delivery Method Room Air Room Air Oxygen Flow Rate (LPM) Lab Data Lab results reviewed: Yes I reviewed the patient's lab results. Lab Results 05/06/24 18:36: SARS-CoV-2 (PCR) Not detected, Influenza A Untype (PCR) Not detected, Influenza Type B (PCR) Not detected 05/06/24 18:54: WBC 8.8, RBC 4.57, Hgb 13.5, Hct 40.5, MCV 88.6, MCH 29.7, MCHC 33.5, RDW 14.2, Plt Count 207, MPV 7.5, Neut % (Auto) 68.4, Lymph % (Auto) 15.9, [place] % (Auto) 13.0 H, Eos % (Auto) 0.1, Baso % (Auto) 2.6 H, Neut # (Auto) 6.1, Lymph # (Auto) 1.4, [place] # (Auto) 1.2 H, Eos # (Auto) 0.0, Baso # (Auto) 0.2, S odium 135 L, Potassium 4.0, Chloride 98, Carbon Dioxide 34 H, Anion Gap 7.0, BUN 4 L, Creatinine 0.70, Estimated Creat Clear 159, Estimated GFR 92, Est GFR ( Amer) 112, Glucose 90, Calcium 8.8, Total Bilirubin 0.4, AST 33, ALT 23, Alkaline Phosphatase 63, Total Protein 6.1 L, Albumin 3.4 L, Globulin 2.7, Albumin/Globulin Ratio 1.3, Serum HCG, Qual Negative, HIV 1&2 Antibody Rapid Nonreactive 05/06/24 19:54: Lactate 0.9 05/06/24 21:16: Urine Color Yellow, Urine Appearance Clear, Urine pH 5.5, Ur Specific [place] <= 1.005, Urine Protein Negative, Urine Glucose (UA) Negative, Urine Ketones Trace, Urine Blood Negative, Urine Nitrate Negative, Urine Bilirubin Negative, Urine Urobilinogen 0.2, Ur Leukocyte Esterase Negative, Urine RBC None, Urine WBC 3-5, Ur Squamous Epith Cells Occasional, Urine Bacteria Trace 05/06/24 18:54 05/06/24 18:54 Orders (Tests/Meds): ED MEDICATIONS Discontinued Medications Generic Name Dose Route Start Last Admin Trade Name Arpan PRN Reason Stop Dose Admin Acetaminophen 1,000 mg 05/06/24 19:59 05/06/24 20:02 Acetaminophen 500mg Tab PO 05/06/24 20:00 1,000 mg ONCE ONE Administration Ibuprofen 800 mg 05/06/24 19:59 05/06/24 20:02 Ibuprofen 400 Mg Tablet PO 05/06/24 20:00 800 mg ONCE ONE Administration Iopamidol 75 ml 05/06/24 20:28 05/06/24 20:29 Iopamidol-370 (76%);100ml Bottle IV 05/06/24 20:29 75 ml ONCE ONE Administration Ondansetron HCl 4 mg 05/06/24 19:53 05/06/24 20:02 Ondansetron 4mg/2ml Vial IV 05/06/24 19:54 4 mg ONCE ONE Administration Sodium Chloride 10 ml 05/06/24 20:28 05/06/24 20:29 Sodium Chloride 0.9% 10ml Syr (Rad Only) IV 05/06/24 20:29 10 ml ONCE ONE Administration ORDERS Category Date Time Status CT abdomen pelvis w con Stat Cat Scan 05/06/24 18:24 Completed CXR --portable [XR chest portable] Stat Exams 05/06/24 21:33 Completed CBC w/Auto Diff [Complete Blood Count Auto Diff] Stat Lab 05/06/24 18:54 Completed CMP [Comprehensive Metabolic Panel] Stat Lab 05/06/24 18:54 Completed HIV (1&2) Antibody Rapid Stat Lab 05/06/24 18:54 Completed Hep C Ab with Reflex to RNA Stat Lab 05/06/24 18:54 Received Lactic Acid Stat Lab 05/06/24 19:54 Completed Rapid PCR Covid and Flu A/B Stat Lab 05/06/24 18:36 Completed Serum [HCG Qualitative, Serum] Stat Lab 05/06/24 18:54 Completed UA [Urinalysis and Microscopic] Stat Lab 05/06/24 21:16 Completed Medical Decision Narrative: In summary patient is a 43-year-old female who presents to the emergency department for evaluation of self-reported complaint of nausea vomiting and diarrhea. Patient is initially hypertensive with a blood pressure 170/87 heart rate 99 respiratory rate 20 O2 sats 94% on room air upon arrival, she is afebrile at 98.7. Physical exam is remarkable for a well-nourished well- developed 43-year-old female who otherwise does not appear to be in acute distress. Breath sounds are clear and equal bilaterally to the bases without adventitious sounds. Abdominal exam is soft with mild diffuse abdominal discomfort on palpation without rebound or guarding or rigidity. Bowel sounds are normal. Patient has no flank tenderness to percussion. Differential diagnosis includes viral versus bacterial infection versus gastroenteritis versus cholecystitis versus UTI etc. Initial workup will be conducted with hematologic labs CT scan abdomen pelvis urinalysis COVID and flu swabs. Initial interventions include crystalloid bolus Zofran. Initial workup reviewed by me shows that her hematologic labs are nonactionable her COVID and flu swabs are negative and my informal interpretation of her CT scan abdomen pelvis does not show any acute processes prior to radiology read. Urinalysis is pending at the time of handoff to Dr. Govea at 2100 hrs.. <Patrica Govea, DO - Last Filed: 05/06/24 23:09> Vital Signs: 05/06/24 18:24 05/06/24 19:55 05/06/24 21:46 Temperature 98.7 F 102.8 F H Temperature Source Oral Oral Pulse Rate 92 H Pulse Rate [Right Radial] 99 H Respiratory Rate 20 Blood Pressure 145/73 H Blood Pressure [Right Arm] 170/87 H Blood Pressure Mean 88 Blood Pressure Mean [Right Arm] 114 Blood Pressure Source Blood Pressure Position 02 Sat by Pulse Oximetry 94 L 95 Oxygen Delivery Method Nasal Cannula Room Air Oxygen Flow Rate (LPM) 2 05/06/24 22:01 05/06/24 22:31 05/06/24 22:34 Temperature 98.8 F Temperature Source Oral Pulse Rate 94 H 88 88 Pulse Rate [Right Radial] Respiratory Rate 18 Blood Pressure 124/68 107/60 L 107/60 L Blood Pressure [Right Arm] Blood Pressure Mean 82 75 Blood Pressure Mean [Right Arm] Blood Pressure Source Automatic Cuff Blood Pressure Position Supine 02 Sat by Pulse Oximetry 92 L 93 L Oxygen Delivery Method Room Air Room Air Oxygen Flow Rate (LPM) Lab Data Lab Results 05/06/24 18:36: SARS-CoV-2 (PCR) Not detected, Influenza A Untype (PCR) Not detected, Influenza Type B (PCR) Not detected 05/06/24 18:54: WBC 8.8, RBC 4.57, Hgb 13.5, Hct 40.5, MCV 88.6, MCH 29.7, MCHC 33.5, RDW 14.2, Plt Count 207, MPV 7.5, Neut % (Auto) 68.4, Lymph % (Auto) 15.9, [place] % (Auto) 13.0 H, Eos % (Auto) 0.1, Baso % (Auto) 2.6 H, Neut # (Auto) 6.1, Lymph # (Auto) 1.4, [place] # (Auto) 1.2 H, Eos # (Auto) 0.0, Baso # (Auto) 0.2, S odium 135 L, Potassium 4.0, Chloride 98, Carbon Dioxide 34 H, Anion Gap 7.0, BUN 4 L, Creatinine 0.70, Estimated Creat Clear 159, Estimated GFR 92, Est GFR ( Amer) 112, Glucose 90, Calcium 8.8, Total Bilirubin 0.4, AST 33, ALT 23, Alkaline Phosphatase 63, Total Protein 6.1 L, Albumin 3.4 L, Globulin 2.7, Albumin/Globulin Ratio 1.3, Serum HCG, Qual Negative, HIV 1&2 Antibody Rapid Nonreactive 05/06/24 19:54: Lactate 0.9 05/06/24 21:16: Urine Color Yellow, Urine Appearance Clear, Urine pH 5.5, Ur Specific [place] <= 1.005, Urine Protein Negative, Urine Glucose (UA) Negative, Urine Ketones Trace, Urine Blood Negative, Urine Nitrate Negative, Urine Bilirubin Negative, Urine Urobilinogen 0.2, Ur Leukocyte Esterase Negative, Urine RBC None, Urine WBC 3-5, Ur Squamous Epith Cells Occasional, Urine Bacteria Trace Orders (Tests/Meds): ED MEDICATIONS Discontinued Medications Generic Name Dose Route Start Last Admin Trade Name Freq PRN Reason Stop Dose Admin Acetaminophen 1,000 mg 05/06/24 19:59 05/06/24 20:02 Acetaminophen 500mg Tab PO 05/06/24 20:00 1,000 mg ONCE ONE Administration Ibuprofen 800 mg 05/06/24 19:59 05/06/24 20:02 Ibuprofen 400 Mg Tablet PO 05/06/24 20:00 800 mg ONCE ONE Administration Iopamidol 75 ml 05/06/24 20:28 05/06/24 20:29 Iopamidol-370 (76%);100ml Bottle IV 05/06/24 20:29 75 ml ONCE ONE Administration Ondansetron HCl 4 mg 05/06/24 19:53 05/06/24 20:02 Ondansetron 4mg/2ml Vial IV 05/06/24 19:54 4 mg ONCE ONE Administration Sodium Chloride 10 ml 05/06/24 20:28 05/06/24 20:29 Sodium Chloride 0.9% 10ml Syr (Rad Only) IV 05/06/24 20:29 10 ml ONCE ONE Administration ORDERS Category Date Time Status CT abdomen pelvis w con Stat Cat Scan 05/06/24 18:24 Completed CXR --portable [XR chest portable] Stat Exams 05/06/24 21:33 Completed CBC w/Auto Diff [Complete Blood Count Auto Diff] Stat Lab 05/06/24 18:54 Completed CMP [Comprehensive Metabolic Panel] Stat Lab 05/06/24 18:54 Completed HIV (1&2) Antibody Rapid Stat Lab 05/06/24 18:54 Completed Hep C Ab with Reflex to RNA Stat Lab 05/06/24 18:54 Received Lactic Acid Stat Lab 05/06/24 19:54 Completed Rapid PCR Covid and Flu A/B Stat Lab 05/06/24 18:36 Completed Serum [HCG Qualitative, Serum] Stat Lab 05/06/24 18:54 Completed UA [Urinalysis and Microscopic] Stat Lab 05/06/24 21:16 Completed Medical Decision Narrative: In summary patient is a 43-year-old female who presents to the emergency department for evaluation of self-reported complaint of nausea vomiting and diarrhea. Patient is initially hypertensive with a blood pressure 170/87 heart rate 99 respiratory rate 20 O2 sats 94% on room air upon arrival, she is afebrile at 98.7. Physical exam is remarkable for a well-nourished well- developed 43-year-old female who otherwise does not appear to be in acute distress. Breath sounds are clear and equal bilaterally to the bases without adventitious sounds. Abdominal exam is soft with mild diffuse abdominal discomfort on palpation without rebound or guarding or rigidity. Bowel sounds are normal. Patient has no flank tenderness to percussion. Differential diagnosis includes viral versus bacterial infection versus gastroenteritis versus cholecystitis versus UTI etc. Initial workup will be conducted with hematologic labs CT scan abdomen pelvis urinalysis COVID and flu swabs. Initial interventions include crystalloid bolus Zofran. Initial workup reviewed by me shows that her hematologic labs are nonactionable her COVID and flu swabs are negative and my informal interpretation of her CT scan abdomen pelvis does not show any acute processes prior to radiology read. Urinalysis is pending at the time of handoff to Dr. Govea at 2100 hrs.. DO Jeferson: I was consulted by the REGLA, and we discussed the complexity of the problems being addressed. I approved the treatment and management plan for this patient's care in the emergency department, thus performing a substantive portion of the medical decision making. I assumed care of the patient at 2100 at departure of the PA as well. CT scan not concerning for acute infectious or surgical pathology. Labs reassuring with no significant leukocytosis or alterations in chemistry. Urine is not overtly concerning for infection. Chest x-ray was obtained and is not concerning for any focal pneumonia. For the patient's fever, I do not have any acute evidence at this time to suggest bacterial etiology based on reassuring workup and exam, so it is most likely viral. She is nontoxic-appearing on subsequent reassessments and is tolerating oral intake without difficulty. She had improvement in vital signs after control of fever. She had no recurrence of vomiting while in the ER. Ultimately at this time I feel that she is appropriate for discharge home with prescription for Zofran and instructions for supportive management. She was given strict return precautions and was discharged after all questions were answered Patrica Govea DO Critical Care <KASIA Patel - Last Filed: 05/06/24 20:53> Critical Care Time Critical Care Time: No
[2024-05-06 18:24] VITALS: BP 170/87; PULSE 99; RESP 20; TEMP 37.1; O2SAT 94; BMI 37.2
--- NOTE | 2024-05-06 18:24 | CT_ITS ---
PROCEDURE INFORMATION: Exam: CT Abdomen And Pelvis With Contrast Exam date and time: 05/06/2024 8:27 PM Age: 43 years old Clinical indication: Fever; Additional info: Nvd fever abd pain TECHNIQUE: Imaging protocol: Computed tomography of the abdomen and pelvis with contrast. Radiation optimization: All CT scans at this facility use at least one of these dose optimization techniques: automated exposure control; mA and/or kV adjustment per patient size (includes targeted exams where dose is matched to clinical indication); or iterative reconstruction. Contrast material: ISOVUE; Contrast volume: 75 ml; Contrast route: IV; COMPARISON: CT CHEST WO CON 04/07/2022 3:02 PM FINDINGS: Lungs: The visualized lung bases demonstrate no focal infiltrates. Liver: The liver appears within normal limits. Gallbladder and biliary ducts: There has been a cholecystectomy. Pancreas: The pancreas is normal. Spleen: The spleen is normal. Adrenal glands: The adrenal glands appear within normal limits. Kidneys and ureters: Multifocal right renal cortical scar formation. No hydronephrosis. No urinary tract stones. Stomach and bowel: Unremarkable. No obstruction. No mucosal thickening. Appendix: No evidence of appendicitis. Intraperitoneal space: No free air. No evidence for focal fluid collection or ascites. No evidence for omental thickening. Vasculature: Unremarkable. No abdominal aortic aneurysm. Lymph nodes: Unremarkable. No pathologically enlarged lymph nodes are identified. Urinary bladder: The bladder appears within normal limits. No wall thickening. Reproductive: There has been a hysterectomy. Bones/joints: Unremarkable. No acute fracture. Soft tissues: The visualize subcutaneous soft tissues and abdominal wall and flank wall appear unremarkable. IMPRESSION: 1. Multifocal right renal cortical scar formation. No hydronephrosis. No urinary tract stones. 2. No acute inflammatory process identified within the abdomen or pelvis.
[2024-05-06 18:44] LABS: Coronavirus 19, PCR Not Detected (NotDetected); Influenza A, PCR Not Detected (NotDetected); Influenza B, PCR Not Detected (NotDetected)
[2024-05-06 19:12] LABS: Basophils # 0.2 K/mm3 (0-0.2); Basophils % 2.6 % (0.1-2.0); Eosinophils % 0.1 % (0.1-12.0); Hematocrit 40.5 % (37.0-47.0); Hemoglobin 13.5 g/dL (12.2-16.2); Lymphocytes # 1.4 K/mm3 (0.7-4.5); Lymphocytes % 15.9 % (10-50); Mean Corpuscular HGB Conc 33.5 g/dL (31.8-35.4); Mean Corpuscular Hemoglobin 29.7 pg (27.0-31.2); Mean Corpuscular Volume 88.6 fl (81-99); Mean Platelet Volume 7.5 fl (7.4-10.4); Monocytes # 1.2 K/mm3 (0.1-1.0); Neutrophils # 6.1 K/mm3 (1.8-7.8); Neutrophils % 68.4 % (37.0-80.0); Platelet Count 207 K/mm3 (142-424); Red Blood Count 4.57 M/mm3 (4.20-5.40); Red Cell Distribution Width 14.2 % (11.5-17.5); White Blood Count 8.8 K/mm3 (4.8-10.8)
[2024-05-06 19:17] LABS: HCG Qualitative, Serum Negative (Negative)
[2024-05-06 19:55] VITALS: TEMP 39.3
[2024-05-06 20:01] LABS: Alanine Aminotransferase 23 U/L (12-78); Albumin Level 3.4 g/dl (3.5-5.0); Albumin/Globulin Ratio 1.3 (1.1-1.8); Alkaline Phosphatase 63 U/L (38-126); Aspartate Amino Transferase 33 U/L (14-36); Bilirubin,Total 0.4 mg/dl (0.2-1.3); Blood Urea Nitrogen 4 mg/dl (7-17); Calcium 8.8 mg/dl (8.4-10.2); Carbon Dioxide 34 mmol/L (22.0-30.0); Chloride 98 mmol/L (98-107); Creatinine Clearance Estimated 159 mL/min (50-200); Estimated Glomerular Filt Rate 92 ml/min (>60); GFR (African American) 112 ML/MIN (>60); Globulin 2.7 g/dL (1.3-3.2); Glucose 90 mg/dl (74-100); Sodium 135 mmol/L (136-145); Total Protein,Serum 6.1 g/dl (6.3-8.2)
[2024-05-06] MEDS: ONDANSETRON 4MG/2ML VIAL 4 MG IV (20:02)
[2024-05-06] MEDS: IBUPROFEN 400 MG TABLET 800 MG PO (20:02)
[2024-05-06] MEDS: ACETAMINOPHEN 500MG TAB 1000 MG PO (20:02)
[2024-05-06 20:25] LABS: Lactic Acid 0.9 mmol/L (0.7-2.1)
[2024-05-06] MEDS: SODIUM CHLORIDE 0.9% 10ML SYR (RAD ONLY) 10 ML IV (20:29)
[2024-05-06] MEDS: IOPAMIDOL-370 (76%);100ML BOTTLE 75 ML IV (20:29)
[2024-05-06 20:39] LABS: HIV (1&2) Antibody Rapid NONREACTIVE (NONREACTIVE)
--- NOTE | 2024-05-06 20:57 | PC.NURSE ---
Pt placed on purewick
[2024-05-06 21:20] LABS: Microscopic, Urine URINE MICROSCOPIC (MICROSCOPIC)
[2024-05-06 21:23] LABS: Appearance,Urine CLEAR (Clear); Bilirubin,Urine Negative (Negative); Blood, Urine Negative (Negative); Color,Urine YELLOW (Yellow); Glucose,Urine (UA) Negative (Negative); Ketones,Urine TRACE (Negative); Leukocyte Esterase,Urine Negative (Negative); Nitrate,Urine Negative (Negative); PH,Urine 5.5 (5.0-8.5); Protein,Urine Negative (Negative); Specific Gravity, Urine <= 1.005 (1.005-1.030); Urobilinogen,Urine 0.2 EU/dl (0.2)
--- NOTE | 2024-05-06 21:33 | XR_ITS ---
PROCEDURE INFORMATION: Exam: XR Chest Exam date and time: 05/06/2024 10:07 PM Age: 43 years old Clinical indication: Fever; Additional info: Fever unknown origin TECHNIQUE: Imaging protocol: Radiologic exam of the chest. Views: 1 view. COMPARISON: CT CHEST WO CON 04/07/2022 3:02 PM FINDINGS: Lungs: Unremarkable. No consolidation. Pleural spaces: Unremarkable. No pleural effusion. No pneumothorax. Heart/Mediastinum: Unremarkable. No cardiomegaly. Bones/joints: Unremarkable. IMPRESSION: No acute findings.
[2024-05-06 21:36] LABS: Bacteria,Urine Trace /lpf; Squamous Epithelial Cell,Urine Occasional #/hpf (0-5)
--- NOTE | 2024-05-06 21:44 | PC.NURSE ---
placed pt on RA at this time , o2 sats 94-95%.
[2024-05-06 21:46] VITALS: BP 145/73; PULSE 92; O2SAT 95
[2024-05-06 22:01] VITALS: BP 124/68; PULSE 94; O2SAT 92
--- NOTE | 2024-05-06 22:13 | PC.NURSE ---
RAD at bedside
[2024-05-06 22:31] VITALS: BP 107/60; PULSE 88; O2SAT 93
[2024-05-06 22:34] VITALS: BP 107/60; PULSE 88; RESP 18; TEMP 37.1; O2SAT 94
[2024-05-08 09:15] LABS: HCV Ab Non Reactive (Non Reactive)
== END 2024-05-06 22:43 | disposition home or self-care (01) ==
PROVIDERS: Physician Assistant; Emergency Provider Emergency Medicine; PCP Nurse Practitioner Acute Care
DX: R11.2 Nausea with vomiting, unspecified (principal); R19.7 Diarrhea, unspecified; R10.9 Unspecified abdominal pain; R50.9 Fever, unspecified
CPT/HCPCS: 71045; 74177; 80053; 81001; 83605; 84703; 85025; 86803; 87389; 87636; 96374; 99285; J2405; Q9967

== ENCOUNTER 2024-05-09 15:38 | Emergency (ER) | payer MEDICARE, OTHER, SELFPAY ==
[2024-05-09 15:39] VITALS: BP 143/47; PULSE 87; RESP 25; TEMP 36.6; O2SAT 87; BMI 42.9
--- OUTSIDE RECORDS SUMMARY | 2024-05-09 15:48 | XMS_ITS | Encounter Summary ---
Author Organization 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 Name Role Phone Unavailable Primary Care Provider Unavailabl e Encounter Details Date Type Department Care Team (Late st Contact Info) Description 08/11/2004 6:27 AM EST - 08/16/2004 12:49 PM EST Hospital Encounter [facility] Generic, Historical Provider Social History Tobacco Use Types Packs/Day Years Used Date Smoking Tobacco: Never Assessed Comments Unknown Sex and Gender Information Value Date Recorded Sex Assigned at Not on file Legal Sex Female 9:10 PM EDT Gender Identity Not on file Sexual Orientation Not on file documented as of this encounter Discharge Summaries * Unknown, Unknown - 10/27/2009 10:03 AM EDT documented in this encounter H&P Notes * Unknown, Unknown - 10/28/2009 2:23 AM EDT documented in this encounter ED Notes * Unknown, Unknown - 10/28/2009 2:23 AM EDT documented in this encounter Plan of Treatment Scheduled Orders Name Type Priority Associated Diagnoses Orde r Schedule XR HAND MIN 3 VIEWS RT Imaging Routine Once for 1 Occur rences starting 09/17/2009 until 09/17/2009, 1 completed documented as of this encounter Procedures Procedure Name Priority Date/Time Associated Diagnosis Comments DIAG HAND MIN 3 VIEWS RT Routine 08/11/2004 12:00 AM EST documented in this encounter Results * XR HAND MIN 3 VIEWS RT (08/11/2004 12:00 AM EST) Anatomical Region Laterality Modality Other 08/11/2004 08/11/2004 Narrative 08/11/2004 12:00 AM EST VERIFIED [facility] Reason: ??trauma Dict.Staff: DAMON BRAN Verified By: DAMON BRAN ?? Marisol: 08/11/04 ?? 3:27 pm Exams: ??DIAG-HAND MIN 3-VIEWS RT RIGHT HAND: 08-11-04 History: Injury with pain. Compare: None. There are no bony, joint or soft tissue abnormalities. YINA:ps end of result Procedure Note Unknown, U - 09/17/2009 VERIFIED [facility] Reason: trauma Dict.Staff: DAMON BRAN Verified By: DAMON BRAN Marisol: 08/11/04 3:27 pm Exams: DIAG-HAND MIN 3-VIEWS RT RIGHT HAND: 08-11-04 History: Injury with pain. Compare: None. There are no bony, joint or soft tissue abnormalities. YINA:ps end of result us U Unknown IMG [facility] LW RAD HISTORICAL Final Result documented in this encounter Visit Diagnoses Not on filedocumented in this encounter
--- OUTSIDE RECORDS SUMMARY | 2024-05-09 15:48 | XMS_ITS | Clinical Summary ---
Author Organization [facility] Address [facility] 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 benztropine (COGENTIN) 0.5 mg tablet Take by mouth daily. Active divalproex (DEPAKOTE) 500 mg EC tablet Take 500 mg by mouth nightly. Active docusate sodium (COLACE) 100 mg capsule Take by mouth 2 times daily. Active omeprazole (PRILOSEC) 20 mg Take 20 mg by mouth daily. Active propranolol (INDERAL) 20 mg tablet Take by mouth every 12 hours. Active clozapine (CLOZARIL) 100 mg tablet Take by mouth daily. Active clozapine (CLOZARIL) 25 mg tablet Take by mouth daily. Active promethazine (PHENERGAN) 25 mg tablet Take by mouth every 6 hours as needed for Nausea. Active Active Problems Problem Noted Date Diagnosed Date Mood insomnia 11/27/2023 MDD (major depressive disorder), recurrent episo de, mild 11/27/2023 Schizoaffective disorder, bipolar type 6 Mental retardation 06/26/2015 Anxious personality disorder 06/26/2015 Resolved Problems Problem Noted Date Diagnosed Date Resolved Date Nightmares 08/12/2022 11/27/2023 Excessive sleepiness 06/09/2018 024 Medication monitoring encounter 03/08/2016 11/27/2023 Medication side effects 12/30/201511/04 SHAMA (generalized anxiety disorder) 10/29/2015 11/27/2023 Medical History Medical History Date Comments Schizo-affective psychosis (HCC) Bipolar 2 disorder (HCC) Personality disorder (HCC) Family History Medical History Relation Name Comments Diabetes Maternal Grandmother Relation Name Status Comments Maternal Grandmother Social History Tobacco Use Types Packs/Day Years Used Date Smoking Tobacco: Never Smokeless Tobacco: Never Alcohol Use Standard Drinks/Week Comments No 0 (1 standard drink = 0.6 oz pur e alcohol) Sexually Active Control Partners Comments Never Comments No Sex and Gender Information Value Date Recorded Sex Assigned at Not on file Legal Sex Female 9:10 PM EDT Gender Identity Not on file Sexual Orientation Not on file Obstetrics History Last Filed Vital Signs Vital Sign Reading Time Taken Comments Blood Pressure 80/50 08/25/2010 7:05 AM EDT Pulse 100 08/25/2010 7:05 AM EDT Temperature 37.2 ??C (99 ??F) 08/24/2010 4:30 PM EDT Respiratory Rate 20 08/24/2010 4:30 PM EDT Oxygen Saturation 100% 08/16/2010 6:16 PM EDT Inhaled Oxygen Concentration - - Weight 56.2 kg (124 lb) 08/16/2010 10:35 PM EDT Height 160 cm (5' 3 ) 08/16/2010 10:35 PM EDT Body Mass Index 21.97 08/16/2010 10:35 PM EDT Plan of Treatment Health Maintenance Due Date Last Done Comments Wellness Exam Medicare 1984 DTaP/TDaP/Td (1 - Tdap) 2001 Hepatitis B Vaccine (1 of 3 - 19+ 3-dose series) 2001 Cervical Cancer Screening 09/29/2003 Pap Smear 09/29/2003 HPV/Pap Cotest 2012 Breast Cancer Screening 2022 COVID-19 Vaccine (1 - 2023-2 5 season) 2024 Influenza Vaccine (#1) 2024 Pneumococcal Vaccine 0-64 Aged Out No longer eligible based on patient's age to complete this topic Insurance [place]ICARE [place] PART A [place] B [place] B MEDICAID [place] CARVE OUT Care Teams Industrial Gas Fitter Relationship Specialty Start Date End Date Gordo Reynoso Sr., MD [address] [place] [phone] PCP - General 08/16/10
--- OUTSIDE RECORDS SUMMARY | 2024-05-09 15:48 | XMS_ITS | Referral Summary ---
Author Organization [facility] Address [address] [place] [address] Phone Care Team Providers Care Active Directory Specialist Name Role Phone Edgardo Renee MD, [facility] Primary Care Provid er Allergies No known active allergies Medications [...] 12/30/201511/04 SHAMA (generalized anxiety disorder) 10/29/2015 11/27/2023 Social History Tobacco Use Types Packs/Day Years [...] on file Sexual Orientation Not on file Last Filed Vital Signs Vital Sign Reading [...] 08/16/2010 10:35 PM EDT Plan of Treatment Not on file Insurance [place]ICARE [place] PART [place] B [place] B [facility] MEDICAID CARVE OUT Care Teams Active Directory Specialist Relationship Specialty Start Date End Date Gordo Reynoso Sr., MD [address] [place] [address] CARLO MARTINEZ [phone] PCP - General 08/16/10
--- OUTSIDE RECORDS SUMMARY | 2024-05-09 15:48 | XMS_ITS | Encounter Summary ---
Author Organization [place] [address] Care Team Providers Care Life Insurance Sales Name Role Phone Unavailable Primary Care Provider Unavailabl e Encounter Details Date Type Department Care Team (Late st Contact Info) Description 07/29/2004 11:26 PM EST - 08/10/2004 12:50 PM EST Hospital Encounter [facility] [...] encounter Discharge Summaries * Unknown, Unknown - 10/28/2009 4:41 AM EDT documented in this encounter H&P Notes * Unknown, Unknown - 10/29/2009 2:48 PM EDT documented in this encounter ED Notes * Unknown, Unknown - 10/29/2009 2:27 PM EDT documented in this encounter Plan of Treatment Not on file documented as of this encounter Visit Diagnoses Not on filedocumented in this encounter
--- NOTE | 2024-05-09 16:01 | ED_ITS ---
<Statement entered by Jah Bradley MD - 05/09/24 23:14> I was consulted by the REGLA, and we discussed the complexity of the problems being addressed. I approved the treatment and management plan for this patient's care in the emergency department, thus performing a substantive portion of the medical decision making. Jah Bradley MD, PRIYANKA, FACEP Discharge Plan Disposition Patient Disposition: Home, Self-Care Condition: Good Prescriptions Prescriptions: New [id number] [Bromfed DM] 2-30-10 mg/5 mL syrup 5 ml PO Q4H PRN (Reason: sinus symptoms) Qty: 118 0RF No Action loperamide 2 mg capsule 2 mg PO Q3HP PRN (Reason: Diarrhea) dextromethorphan-guaifenesin [Robafen DM] 10-100 mg/5 mL syrup 10 ml PO Q4-6H PRN (Reason: Cough) benztropine 0.5 mg tablet 0.5 mg PO BID divalproex [Depakote] 500 mg tablet,delayed release (DR/EC) 500 mg PO DAILY ferrous sulfate 325 mg (65 mg iron) tablet 325 mg PO DAILY fluoxetine [Prozac] 40 mg capsule 40 mg PO DAILY folic acid 1 mg tablet 1 mg PO DAILY olanzapine [Zyprexa] 20 mg tablet 15 mg PO DAILY Prilosec OTC 20 mg tablet,delayed release (DR/EC) 20 mg PO DAILY ipratropium-albuterol 0.5 mg-3 mg(2.5 mg base)/3 mL solution for nebulization 3 ml INHALATION QID PRN (Reason: shortness of breath or wheezing) 90 Days Qty: 270 3RF clindamycin HCl 300 mg capsule 300 mg PO BID 7 Days Qty: 14 0RF haloperidol 10 mg tablet 10 mg PO DAILY metformin 500 mg tablet 500 mg PO BID albuterol sulfate 90 mcg/actuation HFA aerosol inhaler 1 inh INHALATION Q6H PRN (Reason: shortness of breath or wheezing) 90 Days Qty: 8.5 3RF medroxyprogesterone [Depo-Provera] 150 mg/mL suspension 150 mg IM [id number] Qty: 1 3RF phentermine [Adipex-P] 37.5 mg tablet 37.5 mg PO DAILY Qty: 30 0RF Rx Instructions: must administer 30 minutes before or 1-2 hours after breakfast BMI 50.0 divalproex 500 MG tablet,delayed release (DR/EC) 1,500 mg PO HS bisoprolol fumarate 5 MG tablet 5 mg PO DAILY budesonide 0.5 MG/2 ML suspension for nebulization 0.5 mg IH BIDRT Qty: 1 0RF ondansetron 4 mg tablet,disintegrating 4 mg PO Q6H PRN (Reason: nausea and vomiting) Qty: 10 0RF Referrals Follow up/Referrals: Jason Saldaña MD [Primary Care Provider] - See instructions Martín Kraus MD [Staff Physician] - See instructions Activity Restrictions/Add. Instructions Additional Instructions/Restrictions: Please call in the morning to make your appointment with cardiology. You likely need an echo and further cardiac workup. For now continue taking your regular medicines as scheduled. I have sent in Bromfed to your pharmacy. Utilize as needed for upper respiratory tract infection symptoms Clinical Impressions Clinical Impression: URI (upper respiratory infection) Qualifiers: URI type: unspecified URI Qualified Code(s): J06.9 - Acute upper respiratory infection, unspecified Print Language Print Language: Citizen Of [place] Discharge ED Provider: Jah Bradley HPI General Chief Complaint: Shortness of Breath/Dyspnea Stated Complaint: Nausea and vomiting Time Seen by Provider: 05/09/24 16:00 History of Present Illness HPI narrative: Patient presents for evaluation of reported nausea vomiting and congestion . Patient's initial complaint when EMS call was nausea vomiting however on arrival to the emergency department states that she cannot breathe and that she is congested. She makes no mention of the nausea vomiting. She denies any cough fever chills hemoptysis hematochezia melena nausea vomiting diarrhea currently. Related Data Home Medications ?Medication ?Instructions ?Recorded ?Confirmed benztropine 0.5 mg tablet 0.5 mg PO BID Tremors 06/28/17 08/19/21 dextromethorphan-guaifenesin 10 10 ml PO Q4-6H PRN Cough 06/28/17 08/19/21 mg-100 mg/5 mL oral syrup (Robafen DM) divalproex 500 mg tablet,delayed 500 mg PO DAILY Tremors 06/28/17 08/19/21 release (Depakote) ferrous sulfate 325 mg (65 mg 325 mg PO DAILY Supplement 06/28/17 08/19/21 iron) tablet fluoxetine 40 mg capsule (Prozac) 40 mg PO DAILY Anxiety 06/28/17 08/19/21 folic acid 1 mg tablet 1 mg PO DAILY Diet supplement 06/28/17 08/19/21 loperamide 2 mg capsule 2 mg PO Q3HP PRN Diarrhea 06/28/17 08/19/21 olanzapine 20 mg tablet (Zyprexa) 15 mg PO DAILY mood 06/28/17 08/19/21 divalproex 500 mg tablet,delayed 1,500 mg PO HS Tremors 07/28/18 08/19/21 release omeprazole magnesium 20 mg 20 mg PO DAILY acid reflux 07/22/19 08/19/21 tablet,delayed release (Prilosec OTC) haloperidol 10 mg tablet 10 mg PO DAILY mood 01/20/21 08/19/21 metformin 500 mg tablet 500 mg PO BID Diabetes 01/20/21 08/19/21 bisoprolol fumarate 5 mg tablet 5 mg PO DAILY High blood pressure 02/08/21 08/19/21 Previous Rx's ?Medication ?Instructions ?Recorded budesonide 0.5 mg/2 mL suspension 0.5 mg (2 mL) IH BIDRT ##1 02/16/21 for nebulization albuterol sulfate 90 mcg/actuation 1 inh inhalation Q6H PRN shortness 03/22/21 aerosol inhaler of breath or wheezing 90 days #8.5 grams ipratropium 0.5 mg-albuterol 3 mg 3 ml inhalation QID PRN shortness 06/15/21 (2.5 mg base)/3 mL nebulization of breath or wheezing 90 days #270 soln mL clindamycin HCl 300 mg capsule 300 mg PO BID 7 days #14 caps 08/19/21 medroxyprogesterone 150 mg/mL 150 mg IM [id number] control 07/04/22 intramuscular suspension #1 mL (Depo-Provera) phentermine 37.5 mg tablet 37.5 mg PO DAILY Appetite 05/08/23 (Adipex-P) suppressant #30 tabs ondansetron 4 mg disintegrating 4 mg PO Q6H PRN nausea and 05/06/24 tablet vomiting #10 tabs hqaiwcatyzqldkd-zoebfkxvhcsschu-KL 5 ml PO Q4H PRN sinus symptoms 05/09/24 2 mg-30 mg-10 mg/5 mL oral syrup #118 mL (Bromfed DM) Allergies Allergy/AdvReac Type Severity Reaction Status Date / Time No Known Allergies Allergy Verified 08/19/21 11:43 [facility] Disclaimer: The information contained in this section may have been updated after the patient was seen, as this information can be updated by other users. Medical History (Updated 05/09/24 @ 17:47 by KASIA Patel) Mediastinal lymphadenopathy Hilar lymphadenopathy Restrictive lung disease Dyspnea on exertion History of 2019 novel coronavirus disease (COVID-19) Shortness of breath Surgical History (Updated 05/31/22 @ 09:24 by Renetta Doyle RT) Hx of cholecystectomy Social History Smoking Status: Current some day smoker alcohol intake: never counseling provided: provider counseling substance use type: denies use current occupational status: unemployed Travel in the last 8 weeks: None household members: caregiver housing: assisted living facility current occupational exposures/hazards: No caffeine: Yes Other Medical History Have you received the Flu Vaccine for this season: No Have you received the Pneumonia Vaccine: No ROS Obtained: Yes Systems reviewed as appropriate & no additional complaints except as documented Physical Exam General General appearance: alert and in no apparent distress Neck Neck exam: Present meningismus Respiratory Respiratory exam: Present normal lung sounds bilaterally; Absent respiratory distress, wheezes, stridor or accessory muscle use Cardiovascular Cardiovascular exam: Present regular rate Abdominal Exam Abdominal exam: Absent normal bowel sounds Neurological Exam Neurological exam: Present alert and oriented X3 Skin Skin exam: Present dry HEART Score HEART Score HEART Score assessment performed?: Yes History (anamnesis): Slightly suspicious ECG: Non-specific disturbance Age: <45 years Risk factors: 3 or more risk factors Troponin: </= normal limit HEART Score: 3 Critical Care Critical Care Time Critical Care Time: No Medical Decision Making Medical Records Medical records reviewed: Yes I reviewed the patient's medical records. [place] Inquiry Pt receiving controlled substance: No Vital Signs Vital Signs: 05/09/24 15:39 05/09/24 16:33 05/09/24 16:50 Temperature 97.9 F Temperature Source Oral Pulse Rate 91 H 88 Pulse Rate [Right] 87 Respiratory Rate 25 H Blood Pressure Blood Pressure [Right Arm] 143/47 H Blood Pressure Mean [Right Arm] 79 Blood Pressure Source Blood Pressure Source [Right Arm] Automatic Cuff Blood Pressure Position 02 Sat by Pulse Oximetry 87 L 91 L Oxygen Delivery Method Nasal Cannula Oxygen Flow Rate (LPM) 3 05/09/24 16:50 05/09/24 17:00 05/09/24 17:31 Temperature Temperature Source Pulse Rate 86 92 H 94 H Pulse Rate [Right] Respiratory Rate Blood Pressure 114/73 Blood Pressure [Right Arm] Blood Pressure Mean [Right Arm] Blood Pressure Source Blood Pressure Source [Right Arm] Blood Pressure Position 02 Sat by Pulse Oximetry 95 88 L Oxygen Delivery Method Oxygen Flow Rate (LPM) 05/09/24 18:08 Temperature 98.1 F Temperature Source Oral Pulse Rate 93 H Pulse Rate [Right] Respiratory Rate 18 Blood Pressure 129/83 Blood Pressure [Right Arm] Blood Pressure Mean [Right Arm] Blood Pressure Source Automatic Cuff Blood Pressure Source [Right Arm] Blood Pressure Position Left Lateral 02 Sat by Pulse Oximetry Oxygen Delivery Method Room Air Oxygen Flow Rate (LPM) Lab Data Lab results reviewed: Yes I reviewed the patient's lab results. Labs: Lab Results 05/09/24 16:10: WBC 7.8, RBC 4.12 L, Hgb 12.3, Hct 37.0, MCV 89.9, MCH 29.9, MCHC 33.3, RDW 14.0, Plt Count 229, MPV 8.0, Neut % (Auto) 63.4, Lymph % (Auto) 25.7, Pike % (Auto) 9.5 H, Eos % (Auto) 0.4, Baso % (Auto) 1.0, Neut # (Auto) 4.9, Lymph # (Auto) 2.0, Pike # (Auto) 0.7, Eos # (Auto) 0.0, Baso # (Auto) 0.1, Sodium 136, Potassium 3.9, Chloride 99, Carbon Dioxide 37 H, Anion Gap 3.9 L, B UN 15 D, Creatinine 0.70, Estimated Creat Clear 91, Estimated GFR 92, Est GFR ( Amer) 112, Glucose 93, Calcium 8.1 L, Total Bilirubin 0.1 L, AST 26, ALT 19, Alkaline Phosphatase 55, Troponin I < 0.01, Total Protein 5.7 L, Albumin 3.0 L, Globulin 2.7, Albumin/Globulin Ratio 1.1 05/09/24 16:30: Chlamy pneumoniae PCR Not detected, Adenovirus (PCR) Not detected, B. pertussis DNA (PCR) Not detected, Coronavirus OC43 (PCR) Not detected, Coronavirus HKU1 (PCR) Not detected, Coronavirus 229E (PCR) Not detected, SARS-CoV-2 (PCR) Not detected, Coronavirus NL63 (PCR) Not detected, Human Metapneumovir PCR Not detected, Influenza A (H1) PCR Not detected, Influ A (H1N1/09) PCR Not detected, Influenza A (H3) PCR Not detected, Influenza Type A (PCR) Not detected, Influenza Type B (PCR) Not detected, M. pneumoniae (PCR) Not detected, Parainfluenza 1 (PCR) Not detected, Parainfluenza 2 (PCR) Not detected, Parainfluenza 3 (PCR) Not detected, Parainfluenza 4 (PCR) Not detected, RSV (PCR) Not detected, Entero/Rhino (PCR) Not detected 05/09/24 16:10 05/09/24 16:10 Response Orders (Tests/Meds): ED MEDICATIONS Discontinued Medications Generic Name Dose Route Start Last Admin Trade Name Freq PRN Reason Stop Dose Admin Albuterol/Ipratropium 3 ml 05/09/24 16:05 05/09/24 16:50 Ipratropium/Albuterol 3 Ml Neb IH 05/09/24 16:06 3 ml ONCE ONE Administration Dexamethasone Sodium Phosphate 10 mg 05/09/24 16:05 05/09/24 16:49 Dexamethasone 4mg/Ml 5ml Mdv IV 05/09/24 16:06 10 mg ONCE ONE Administration Iopamidol 75 ml 05/09/24 16:27 05/09/24 16:28 Iopamidol-370 (76%);100ml Bottle IV 05/09/24 16:28 75 ml ONCE ONE Administration Ondansetron HCl 4 mg 05/09/24 16:05 05/09/24 16:50 Ondansetron 4mg/2ml Vial IV 05/09/24 16:06 4 mg ONCE ONE Administration Sodium Chloride 10 ml 05/09/24 16:18 Sodium Chloride 0.9% 10ml Flush Syringe IV 06/08/24 16:17 NEEDED PRN Maintain IV Site Sodium Chloride 10 ml 05/09/24 16:27 05/09/24 16:27 Sodium Chloride 0.9% 10ml Syr (Rad Only) IV 05/09/24 16:28 10 ml ONCE ONE Administration Sodium Chloride 50 ml 05/09/24 16:27 05/09/24 16:27 0.9 % Sodium Chloride 50 Ml Vial IV 05/09/24 16:28 50 ml ONCE ONE Administration ORDERS Category Date Time Status CT angio chest PE protocol Stat Cat Scan 05/09/24 16:06 Completed CBC w/Auto Diff [Complete Blood Count Auto Diff] Stat Lab 05/09/24 16:10 Completed CMP [Comprehensive Metabolic Panel] Stat Lab 05/09/24 16:10 Completed Full Resp Panel w/COVID ([facility]) Routine Lab 05/09/24 16:30 Completed Trop I [Troponin I] Stat Lab 05/09/24 16:10 Completed MDM Narrative Medical Decision Narrative: In summary patient is a 43-year-old well-nourished well-developed morbidly obese, with a BMI of 42, female who presents to the emergency department for evaluation of nausea vomiting and hypoxia.. Patient is initially normotensive at 143/47 with a pulse of 87 satting at 87% on 3 l by nasal cannula upon arrival, afebrile at 97.9. Physical exam however is remarkable for clear breath sounds no abdominal pain although she has a very large centrally obese abdomen but has no rebound or guarding no rigidity.. Differential diagnosis includes gastroenteritis versus viral upper respiratory tract infection versus heart failure versus PE etc. Initial workup will be conducted with CT scan of the chest PE protocol, patient already had a CT scan abdomen pelvis this week specifically 05-24 ordered by myself and interpreted by myself that showed no acute processes. Additionally we will order a hematologic labs full respiratory panel. Initial interventions include Toradol Decadron Zofran. Initial workup reviewed by me and her hematologic labs show a normal white count with no shift with the remainder of her hematologic labs being nonactionable, her respiratory panel is negative for all organisms tested, and my informal interpretation of her CT scan PE protocol shows no evidence of thrombus or acute cardiopulmonary process but does show signs and symptoms suspicious for possible pulmonary artery hypertension or obstructive sleep apnea, trace bilateral pleural effusions but otherwise no other acute processes. Upon repeat evaluation patient reported subjective improvement in her constitutional symptoms after initial intervention. Given this patient is appropriate for discharge with referral to cardiology for further workup and care
--- NOTE | 2024-05-09 16:06 | CT_ITS ---
PROCEDURE INFORMATION: Exam: CTA Chest With Contrast Exam date and time: 05/09/2024 4:27 PM Age: 43 years old Clinical indication: Condition or disease; Lung condition and disease; Respiratory failure; Acute; With hypoxia (drop in body oxygenation); Additional info: Acute hypoxemic respiratory failure TECHNIQUE: Imaging protocol: Computed tomographic angiography of the chest with contrast. Exam focused on the arteries. 3D rendering (Not supervised by radiologist): MIP and/or 3D reconstructed images were created by the technologist. Radiation optimization: All CT scans at this facility use at least one of these dose optimization techniques: automated exposure control; mA and/or kV adjustment per patient size (includes targeted exams where dose is matched to clinical indication); or iterative reconstruction. Contrast material: ISOVUE 370; Contrast volume: 70 ml; Contrast route: INTRAVENOUS (IV); COMPARISON: CT ANGIO CHEST PE PROTOCOL 02/08/2021 1:57 AM FINDINGS: Limitations: Respiratory motion artifact severely degrades images, limiting sensitivity of exam. Pulmonary arteries: Dilated central pulmonary arteries compatible with longstanding pulmonary arterial hypertension, not significantly changed from prior exam. No evidence of large central pulmonary emboli. Respiratory motion artifact limits evaluation for definitive exclusion of subsegmental pulmonary emboli. Aorta: No aortic aneurysm. Lungs: No evidence of acute airspace infiltrate or congestive pulmonary edema. Calcified pulmonary granuloma in the right middle lobe consistent with chronic sequelae of prior granulomatous disease. Central airways are clear. Pleural spaces: Trace bilateral pleural effusions. No pneumothorax. Heart: No cardiomegaly. No pericardial effusion. Lymph nodes: Calcified mediastinal lymph nodes consistent with chronic sequelae of prior granulomatous disease. Multiple conspicuous subcentimeter mediastinal and hilar lymph nodes. No pathologically enlarged lymph nodes by CT criteria. Bones/joints: No acute osseous abnormality. Multi-level bridging and/or beaked disc osteophytes in the thoracic spine compatible with diffuse idiopathic skeletal hyperostosis (DISH), unchanged. Soft tissues: Unremarkable. IMPRESSION: 1. No evidence of large central pulmonary emboli or other acute cardiopulmonary process, noting technically inadequate study for definitive exclusion of subsegmental pulmonary emboli. 2. Dilated central pulmonary arteries compatible with longstanding pulmonary arterial hypertension, not significantly changed from prior exam. 3. Additional chronic ancillary findings are detailed above.
[2024-05-09 16:17] VITALS: BMI 42.9
[2024-05-09 16:24] LABS: Basophils # 0.1 K/mm3 (0-0.2); Eosinophils % 0.4 % (0.1-12.0); Hemoglobin 12.3 g/dL (12.2-16.2); Lymphocytes % 25.7 % (10-50); Mean Corpuscular HGB Conc 33.3 g/dL (31.8-35.4); Mean Corpuscular Hemoglobin 29.9 pg (27.0-31.2); Mean Corpuscular Volume 89.9 fl (81-99); Monocytes # 0.7 K/mm3 (0.1-1.0); Monocytes % 9.5 % (1.7-9.3); Neutrophils # 4.9 K/mm3 (1.8-7.8); Neutrophils % 63.4 % (37.0-80.0); Platelet Count 229 K/mm3 (142-424); Red Blood Count 4.12 M/mm3 (4.20-5.40); White Blood Count 7.8 K/mm3 (4.8-10.8)
[2024-05-09] MEDS: SODIUM CHLORIDE 0.9% 10ML SYR (RAD ONLY) 10 ML IV (16:27)
[2024-05-09] MEDS: 0.9 % SODIUM CHLORIDE 50 ML VIAL IV (16:27)
[2024-05-09] MEDS: IOPAMIDOL-370 (76%);100ML BOTTLE 75 ML IV (16:28)
[2024-05-09 16:33] VITALS: PULSE 91; O2SAT 91
[2024-05-09 16:35] LABS: Adenovirus,PCR Not Detected (NotDetected); Bordetella Pertussis Not Detected (NotDetected); Chlamydophila Pneumoniae, PCR Not Detected (NotDetected); Coronavirus 19, PCR Not Detected (NotDetected); Coronavirus 229E Not Detected (NotDetected); Coronavirus NL63 Not Detected (NotDetected); Coronavirus OC43 Not Detected (NotDetected); Coronovirus HKU1,PCR Not Detected (NotDetected); Human Metapneumovirus Not Detected (NotDetected); Influenza A, PCR Not Detected (NotDetected); Influenza AH1, 2009 Not Detected (NotDetected); Influenza AH1, PCR Not Detected (NotDetected); Influenza AH3,PCR Not Detected (NotDetected); Influenza B, PCR Not Detected (NotDetected); Mycoplasma Pneumoniae, PCR Not Detected (NotDetected); Parainfluenza 1, PCR Not Detected (NotDetected); Parainfluenza 2, PCR Not Detected (NotDetected); Parainfluenza 3, PCR Not Detected (NotDetected); Parainfluenza 4, PCR Not Detected (NotDetected); Respiratory Syncytial Virus Not Detected (NotDetected); Rhinovirus/Enterovirus Not Detected (NotDetected)
[2024-05-09 16:41] LABS: Chloride 99 mmol/L (98-107); Potassium 3.9 mmoL/L (3.5-5.1); Sodium 136 mmol/L (136-145)
[2024-05-09 16:44] LABS: Alanine Aminotransferase 19 U/L (12-78); Albumin/Globulin Ratio 1.1 (1.1-1.8); Alkaline Phosphatase 55 U/L (38-126); Anion Gap 3.9 mEq/L (5-15); Aspartate Amino Transferase 26 U/L (14-36); Blood Urea Nitrogen 15 mg/dl (7-17); Calcium 8.1 mg/dl (8.4-10.2); Carbon Dioxide 37 mmol/L (22.0-30.0); Creatinine Clearance Estimated 91 mL/min (50-200); Estimated Glomerular Filt Rate 92 ml/min (>60); GFR (African American) 112 ML/MIN (>60); Globulin 2.7 g/dL (1.3-3.2); Glucose 93 mg/dl (74-100); Total Protein,Serum 5.7 g/dl (6.3-8.2)
[2024-05-09 16:46] LABS: Bilirubin,Total 0.1 mg/dl (0.2-1.3)
[2024-05-09] MEDS: DEXAMETHASONE 4MG/ML 5ML MDV 10 MG IV (16:49)
[2024-05-09 16:50] VITALS: PULSE 86; PULSE 88
[2024-05-09] MEDS: IPRATROPIUM/ALBUTEROL 3 ML NEB IH (16:50)
[2024-05-09] MEDS: ONDANSETRON 4MG/2ML VIAL 4 MG IV (16:50)
[2024-05-09 16:58] LABS: Troponin I < 0.01 ng/ml (0.00-0.034)
[2024-05-09 17:00] VITALS: BP 114/73; PULSE 92; O2SAT 95
[2024-05-09 17:31] VITALS: PULSE 94; O2SAT 88
--- NOTE | 2024-05-09 17:58 | PC.NURSE ---
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
[2024-05-09 18:08] VITALS: BP 129/83; PULSE 93; RESP 18; TEMP 36.7; O2SAT 94
== END 2024-05-09 18:14 | disposition home or self-care (01) ==
PROVIDERS: Physician Assistant; Emergency Provider Student in an Organized Health Care Education/Training Program; PCP Internal Medicine Adolescent Medicine
DX: J06.9 Acute upper respiratory infection, unspecified (principal); R11.2 Nausea with vomiting, unspecified; R09.81 Nasal congestion; R06.02 Shortness of breath; R09.02 Hypoxemia; Z72.0 Tobacco use
CPT/HCPCS: 71275; 80053; 84484; 85025; 87633; 96374; 96375; 99285; J1100; J2405; J7620; Q9967

== ENCOUNTER 2025-05-06 10:03 | Outpatient (CLI) | payer MEDICARE, OTHER, SELFPAY ==
--- NOTE | 2025-05-06 10:08 | MM_ITS ---
PROCEDURE INFORMATION: Exam: MG Bilateral Screening 3D Mammography Exam date and time: 05/06/2025 10:08 AM Age: 44 years old Clinical indication: Screening mammogram. TECHNIQUE: Imaging protocol: Bilateral Screening tomosynthesis and 2D mammography including computer-aided detection (CAD) when performed. Limited assessment due to difficulty positioning the patient. COMPARISON: No relevant prior studies available. FINDINGS: MAMMOGRAPHY: Breast composition: The breast is heterogeneously dense, which may obscure small masses. Mass: None. Architectural distortion: No new or suspicious architectural distortion. Calcifications: No new or suspicious calcifications are present Asymmetric density: No new or suspicious asymmetric density is present Skin thickening: None. Axillary adenopathy: None. IMPRESSION: No mammographic evidence of malignancy. Recommend annual screening mammography unless otherwise clinically indicated. ASSESSMENT: BI-RADS category 1: Negative.
== END 2025-05-06 23:59 | disposition home or self-care (01) ==
PROVIDERS: PCP Nurse Practitioner Family; Visit Provider Nurse Practitioner Family
DX: Z12.31 Encounter for screening mammogram for malignant neoplasm of breast (principal); R92.333 Mammographic heterogeneous density, bilateral breasts
CPT/HCPCS: 77063; 77067